=== PATIENT | male | born 1965 | race Caucasian/White ===

== ENCOUNTER → 2016-10-18 | Outpatient (CLI) | payer MEDICAID, OTHER ==
[2016-10-18 14:50] LABS: ALBUMIN/GLOBULIN RATIO 1.21 (1.00-1.93); ALKALINE PHOSPHATASE 86 U/L (45-117); ALT/SGPT 38 U/L (12-78); ANION GAP 10 MEQ/L (8-16); AST/SGOT 28 U/L (15-37); BILIRUBIN,TOTAL 0.4 MG/DL (0.2-1.0); BLOOD UREA NITROGEN 12 MG/DL (7-18); CALCIUM LEVEL 8.7 MG/DL (8.5-10.1); CARBON DIOXIDE LEVEL 26 MEQ/L (21-32); CHLORIDE LEVEL 97 MEQ/L (98-107); CHOLESTEROL LEVEL 125 MG/DL (<200); CREATININE FOR GFR 1.14 MG/DL (0.70-1.30); GLOMERULAR FILTRATION RATE > 60.0 (>56); GLUCOSE, FASTING 101 MG/DL (70-105); POTASSIUM SERUM 3.7 MEQ/L (3.5-5.1); SODIUM LEVEL 133 MEQ/L (136-145); TOTAL PROTEIN 7.3 GM/DL (6.4-8.2); TRIGLYCERIDES LEVEL 160 MG/DL (<150)
== END ==
LOC: M LAB 13:29
PROVIDERS: ATTEND Family Medicine Addiction Medicine
DX: E11.9 Type 2 diabetes mellitus without complications (principal)

== ENCOUNTER → 2017-04-10 | Outpatient (REF) | payer OTHER, MEDICAID ==
[2017-04-10 14:12] LABS: ALBUMIN 3.9 GM/DL (3.2-5.2); ALBUMIN/GLOBULIN RATIO 1.15 (1.00-1.93); ALKALINE PHOSPHATASE 74 U/L (45-117); ALT/SGPT 34 U/L (12-78); ANION GAP 6 MEQ/L (8-16); AST/SGOT 31 U/L (7-37); BILIRUBIN,TOTAL 0.4 MG/DL (0.2-1.0); BLOOD UREA NITROGEN 8 MG/DL (7-18); CALCIUM LEVEL 8.8 MG/DL (8.5-10.1); CARBON DIOXIDE LEVEL 29 MEQ/L (21-32); CHLORIDE LEVEL 103 MEQ/L (98-107); CHOLESTEROL LEVEL 145 MG/DL (<200); CHOLESTEROL RISK RATIO 3.625 (<5); CREATININE FOR GFR 0.95 MG/DL (0.70-1.30); GLOMERULAR FILTRATION RATE > 60.0 (>56); GLUCOSE, FASTING 110 MG/DL (70-100); HDL CHOLESTEROL 40 MG/DL (>40); NON-HDL-C 105 MG/DL; POTASSIUM SERUM 3.4 MEQ/L (3.5-5.1); SODIUM LEVEL 138 MEQ/L (136-145); TOTAL PROTEIN 7.3 GM/DL (6.4-8.2); TRIGLYCERIDES LEVEL 130 MG/DL (<150)
[2017-04-10 14:44] LABS: ESTIMATED AVERAGE GLUCOSE 140 MG/DL (60-110); HEMOGLOBIN A1c 6.5 %
[2017-04-11 09:30] LABS: HIV 1&2 SCREEN CENTAUR NEGATIVE (NEGATIVE)
== END ==
LOC: M LAB REF 12:27
DX: E11.9 Type 2 diabetes mellitus without complications (principal); Z13.9 Encounter for screening, unspecified

== ENCOUNTER → 2017-04-10 | Outpatient (REF) | payer OTHER, MEDICAID ==
[2017-04-10 14:06] LABS: CREATININE, URINE 34.6 MG/DL; MALB URINE SIEMENS 7.7 MG/L; MAU/CREAT RATIO 22.2 MCG/MG (0.0-30.0)
== END ==
LOC: M LAB REF 12:28
DX: E11.9 Type 2 diabetes mellitus without complications (principal)

== ENCOUNTER → 2017-04-14 | Outpatient (REF) | payer OTHER, MEDICAID | LOC: M LAB REF 14:36 | DX: R19.5 Other fecal abnormalities (principal) ==

== ENCOUNTER → 2017-05-13 | Outpatient (REF) | payer OTHER, MEDICAID ==
[2017-05-13 19:38] LABS: ALBUMIN 3.8 GM/DL (3.2-5.2); ALBUMIN/GLOBULIN RATIO 1.19 (1.00-1.93); ALKALINE PHOSPHATASE 68 U/L (45-117); ALT/SGPT 28 U/L (12-78); ANION GAP 6 MEQ/L (8-16); AST/SGOT 27 U/L (7-37); BILIRUBIN,TOTAL 0.3 MG/DL (0.2-1.0); BLOOD UREA NITROGEN 11 MG/DL (7-18); CALCIUM LEVEL 8.3 MG/DL (8.5-10.1); CARBON DIOXIDE LEVEL 26 MEQ/L (21-32); CHLORIDE LEVEL 106 MEQ/L (98-107); CHOLESTEROL LEVEL 122 MG/DL (<200); CHOLESTEROL RISK RATIO 3.696 (<5); CREATININE FOR GFR 0.92 MG/DL (0.70-1.30); GLOMERULAR FILTRATION RATE > 60.0 (>56); GLUCOSE, FASTING 111 MG/DL (70-100); HDL CHOLESTEROL 33 MG/DL (>40); LDL CHOLESTEROL 66.4 MG/DL (<100); NON-HDL-C 89 MG/DL; POTASSIUM SERUM 3.7 MEQ/L (3.5-5.1); SODIUM LEVEL 138 MEQ/L (136-145); THYROID STIMULATING HORMONE 0.579 uIU/ML (0.358-3.740); TRIGLYCERIDES LEVEL 113 MG/DL (<150)
[2017-05-13 21:18] LABS: ESTIMATED AVERAGE GLUCOSE 148 MG/DL (60-110); HEMOGLOBIN A1c 6.8 %
== END ==
LOC: M LAB REF 17:43
DX: E11.9 Type 2 diabetes mellitus without complications (principal)

== ENCOUNTER → 2017-07-11 | Outpatient (REF) | payer OTHER, MEDICAID ==
[2017-07-11 15:09] LABS: ALBUMIN 3.3 GM/DL (3.2-5.2); ALKALINE PHOSPHATASE 59 U/L (45-117); ALT/SGPT 32 U/L (12-78); ANION GAP 8 MEQ/L (8-16); AST/SGOT 40 U/L (7-37); BILIRUBIN,TOTAL 0.3 MG/DL (0.2-1.0); BLOOD UREA NITROGEN 13 MG/DL (7-18); CALCIUM LEVEL 7.7 MG/DL (8.5-10.1); CARBON DIOXIDE LEVEL 26 MEQ/L (21-32); CHLORIDE LEVEL 106 MEQ/L (98-107); CHOLESTEROL LEVEL 102 MG/DL (<200); CREATININE FOR GFR 1.02 MG/DL (0.70-1.30); GLOMERULAR FILTRATION RATE > 60.0 (>56); GLUCOSE, FASTING 107 MG/DL (70-100); HDL CHOLESTEROL 34 MG/DL (>40); LDL CHOLESTEROL 53.4 MG/DL (<100); NON-HDL-C 68 MG/DL; POTASSIUM SERUM 3.7 MEQ/L (3.5-5.1); SODIUM LEVEL 140 MEQ/L (136-145); THYROID STIMULATING HORMONE 0.957 uIU/ML (0.358-3.740); TOTAL PROTEIN 6.3 GM/DL (6.4-8.2); TRIGLYCERIDES LEVEL 73 MG/DL (<150)
[2017-07-11 15:50] LABS: ESTIMATED AVERAGE GLUCOSE 154 MG/DL (60-110)
== END ==
LOC: M LAB REF 14:21
DX: E11.9 Type 2 diabetes mellitus without complications (principal)

== ENCOUNTER 2017-09-04 17:22 | Emergency (ER) | payer OTHER, MEDICAID | END 2017-09-04 18:26 | disposition home or self-care (01) | LOC: M ED 17:22 | DX: G57.12 Meralgia paresthetica, left lower limb (principal); Z79.899 Other long term (current) drug therapy; F17.210 Nicotine dependence, cigarettes, uncomplicated | CPT/HCPCS: 99282 ==

== ENCOUNTER → 2017-12-26 | Outpatient (CLI) | payer OTHER ==
[2017-12-26 13:33] LABS: ALBUMIN 3.8 GM/DL (3.2-5.2); ALBUMIN/GLOBULIN RATIO 1.19 (1.00-1.93); ALKALINE PHOSPHATASE 79 U/L (45-117); ALT/SGPT 33 U/L (12-78); ANION GAP 9 MEQ/L (8-16); AST/SGOT 27 U/L (7-37); BILIRUBIN,TOTAL 0.5 MG/DL (0.2-1.0); BLOOD UREA NITROGEN 11 MG/DL (7-18); CALCIUM LEVEL 8.8 MG/DL (8.5-10.1); CARBON DIOXIDE LEVEL 29 MEQ/L (21-32); CHLORIDE LEVEL 100 MEQ/L (98-107); GLOMERULAR FILTRATION RATE > 60.0 (>56); GLUCOSE, FASTING 115 MG/DL (70-100); POTASSIUM SERUM 3.5 MEQ/L (3.5-5.1); SODIUM LEVEL 138 MEQ/L (136-145)
[2017-12-26 13:41] LABS: PTH INTACT 73.1 PG/ML (18.5-88.0); TOTAL 25(OH) VITAMIN D 35.9 NG/ML (30.0-100.0)
== END ==
LOC: M LAB 11:38
DX: E83.51 Hypocalcemia (principal)
CPT/HCPCS: 80053

== ENCOUNTER 2018-05-25 09:33 | Inpatient (IN) | payer MEDICAID, OTHER ==
[~2018-05-25] VITALS: Ht 185.4 cm; Wt 129.6 kg
[~2018-05-25 09:33] MED LIST: INVE1.75; LEXA1TAB PO; LISI-538 PO; METF10004 PO; NAPR-837 PO; PROP20TA72 PO; SIMV20TA2 PO
[2018-05-25] MEDS ORDERED: METOPROLOL TART 50 MG TAB PO ONE (11:00)
[2018-05-25] MEDS ORDERED: CHLORTHALIDONE 25 MG TAB PO ONE (11:00)
[2018-05-25] MEDS ORDERED: HALOPERIDOL 5 MG/ML VIAL (J1630) IM ONE (12:45)
[2018-05-25] MEDS ORDERED: LORazepam 2 MG/ML VIAL (J2060) IM ONE (12:45)
[2018-05-25] MEDS ORDERED: diphenhydrAMINE INJ 50MG/ML VIAL (J1200) IM ONE (12:45)
[2018-05-25 13:20] LABS: HEMATOCRIT 48.1 % (42.0-52.0); HEMOGLOBIN 15.9 g/dl (13.5-17.5); MEAN CORPUSCULAR HEMOGLOBIN 29.2 pg (27.0-33.0); MEAN CORPUSCULAR HGB CONC 33.1 g/dl (32.0-36.5); MEAN CORPUSCULAR VOLUME 88.3 fl (80.0-96.0); PLATELET COUNT, AUTOMATED 243 10^3/uL (150-450); RED BLOOD COUNT 5.45 10^6/uL (4.30-6.10); WHITE BLOOD COUNT 13.7 10^3/uL (4.0-10.0)
[2018-05-25 14:33] LABS: ALBUMIN 4.1 GM/DL (3.2-5.2); ALT/SGPT 33 U/L (12-78); BILIRUBIN,DIRECT 0.2 MG/DL (0.0-0.2); BILIRUBIN,TOTAL 0.4 MG/DL (0.2-1.0); BLOOD UREA NITROGEN 9 MG/DL (7-18); CALCIUM LEVEL 8.9 MG/DL (8.5-10.1); CARBON DIOXIDE LEVEL 24 MEQ/L (21-32); CHLORIDE LEVEL 104 MEQ/L (98-107); CREATININE FOR GFR 1.11 MG/DL (0.70-1.30); ETHYL ALCOHOL (ETHANOL) < 0.003 % (0.000-0.010); GLOMERULAR FILTRATION RATE > 60.0 (>56); GLUCOSE, FASTING 151 MG/DL (70-100); POTASSIUM SERUM 3.7 MEQ/L (3.5-5.1); SALICYLATE LEVEL 4.6 MG/DL (5.0-30.0); SODIUM LEVEL 141 MEQ/L (136-145); TOTAL PROTEIN 7.7 GM/DL (6.4-8.2)
[2018-05-25 14:34] LABS: ACETAMINOPHEN LEVEL < 2.0 UG/ML (10.0-30.0)
[2018-05-25 15:09] LABS: AMPHETAMINES LEVEL URINE NEGATIVE (NEGATIVE); BARBITURATES URINE NEGATIVE (NEGATIVE); BENZODIAZEPINES URINE NEGATIVE (NEGATIVE); CANNABINOIDS URINE NEGATIVE (NEGATIVE); COCAINE METABOLITE URINE NEGATIVE (NEGATIVE); METHADONE URINE NEGATIVE (NEGATIVE); OPIATES URINE NEGATIVE (NEGATIVE); PHENCYCLIDINE URINE NEGATIVE (NEGATIVE)
[2018-05-25] MEDS ORDERED: traZODone 50 MG TAB PO PRN (16:30)
[2018-05-25] MEDS ORDERED: MOM 30ML SUSPENSION UDC PO PRN (16:30)
[2018-05-25] MEDS ORDERED: OLANZapine ORAL DISINTEGRATING TAB 5MG PO PRN (16:30)
[2018-05-25] MEDS ORDERED: MAALOX 30 ML SUSP *UDC PO PRN (16:30)
[2018-05-25] MEDS ORDERED: ACETAMINOPHEN TAB 650MG DOSE (2X325MG) PO PRN (16:30)
[2018-05-25 18:30] VITALS: BP 180/110
[2018-05-25] MEDS ORDERED: cloNIDine 0.1 MG TAB PO PRN (18:45)
[2018-05-25] MEDS: LISINOPRIL 10 MG TAB PO SCH (18:52)
[2018-05-25] MEDS: amLODIPine 10 MG TAB PO SCH (18:55)
[2018-05-25 20:41] LABS: CHOLESTEROL LEVEL 214 MG/DL (<200); CHOLESTEROL RISK RATIO 5.944 (<5); HDL CHOLESTEROL 36 MG/DL (>40); LDL CHOLESTEROL 136 MG/DL (<100); NON-HDL-C 178 MG/DL; TRIGLYCERIDES LEVEL 210 MG/DL (<150)
[2018-05-25 20:48] LABS: HEMOGLOBIN A1c 7.3 %
--- NOTE | 2018-05-25 20:51 | CR ---
DATE OF CONSULTATION: 05/25/2018 REFERRING PHYSICIAN: Psychiatrist REASON FOR CONSULTATION: Medical evaluation and management. HISTORY OF PRESENT ILLNESS: The patient is a 52-year-old male living in [facility] ([facility]) who started having increasing paranoia and continued to refuse medication and patient became confrontational with staff and pick-up order was warranted and patient was brought to [facility] for further evaluation and hospitalist team was called on admission. Patient was diagnosed with schizophrenia, however he has not been taking his medication for several months. In the leisure time, he is using marijuana and cocaine for leisure. Patient has not been seen by a medical provider for some time. He is not sure what medical conditions he has had in the past. He vaguely recalled that he stopped taking metformin but he does not feel the need for the metformin, he does not know why he is taking metformin. Denied any medical issues. PAST MEDICAL HISTORY: 1. Schizophrenia. 2. Hypertension. 3. Questionable dyslipidemia. 4. Questionable diabetes. PAST SURGICAL HISTORY: None. SOCIAL HISTORY: Patient smoked one pack daily for 30 years. Patient drinks 1-2 drinks monthly. Patient continues to use marijuana and cocaine. Last use was a few days ago. REVIEW OF SYSTEMS: GENERAL: Denied fevers or chills. HEENT: Denied vision changes or auditory changes. CARDIOVASCULAR: Denied any chest pain or palpitations. RESPIRATORY: Denied cough, sputum production, or wheezes. GASTROINTESTINAL (GI): No nausea, no vomiting, no diarrhea. GENITOURINARY (): Denied any frequency, urgency, or dysuria. MUSCULOSKELETAL: Denied any muscle pain or joint pain. NEUROLOGICAL: Denied any numbness or tingling. OBJECTIVE: VITAL SIGNS: Temperature is 99.6, pulse 104, respiratory rate 16, blood pressure 180/110, oxygen 94% in room air. GENERAL: Obese, patient is alert and awake, no distress. HEENT: Normocephalic, atraumatic. Extraocular motors grossly intact. CARDIOVASCULAR: [place], positive S1, S2. LUNGS: Clear to auscultation bilaterally. ABDOMEN: Soft, nontender, bowel sounds present. EXTREMITIES: No significant edema noted. LABORATORY DATA: WBC 13.3, hemoglobin 15.9, hematocrit 48.1, platelet count 243, sodium 141, potassium 3.7, chloride 104, carbon dioxide 24, BUN 9, creatinine 1.11, GFR greater than 60, fasting glucose 151, calcium 8.9, total bilirubin 0.4, direct bilirubin 0.2, AST 29, ALT 33, alkaline phosphatase 110, total protein 7.7, albumin 4.1, TSH 1.19. Urine toxicology is negative. Alcohol level negative. ASSESSMENT AND PLAN: 1. Hypertension. Patient has not been taking medications for some time. He could not recall whether he was on any type of blood pressure medication in the past. Most recent blood pressure measurement was 180/110. Start trial of long-acting Cardizem, will adjust as needed. Cardizem has holding parameters. 2. Questionable history of diabetes. Patient thinks he was given metformin in the past but he could not be sure. Laboratory tests show patient has a glucose level of 150. Will followup with A1c. At the moment, will place the patient on consistent carbohydrate diet. 3. Possible dyslipidemia. Followup with lipid profile. 4. Psychiatric condition of schizophrenia. Defer psychiatric management to psychiatry. 5. Deep venous thrombosis (DVT) prophylaxis. Recommend increasing ambulation.
[2018-05-25] MEDS: PALIPERIDONE 3 MG ER TAB (INVEGA) PO SCH (21:00)
[2018-05-26 06:51] VITALS: BP 176/84
[2018-05-26] MEDS: PALIPERIDONE 3 MG ER TAB (INVEGA) PO SCH ×2 (09:00→21:00)
[2018-05-26] MEDS: LISINOPRIL 10 MG TAB PO SCH (09:41)
[2018-05-26] MEDS: amLODIPine 10 MG TAB PO SCH (09:42)
[2018-05-26 12:08] VITALS: BP 132/80
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
[2018-05-26] MEDS: metFORMIN (GLUCOPHAGE) 500 MG TAB PO SCH (17:22)
--- NOTE | 2018-05-26 17:45 | IPNPDOC ---
Date Seen The patient was seen on 05/26/18. Progress Note SUBJECTIVE: Patient reports no new complaints he tells me that heblood pressure has been high and that he has been borderline diabetic for a long time. He tells me he's been drinking a lot of coffee having a lot of energy Curly's" is not getting a lot of action" which is starting to get his blood pressure up. He denies headache or visual changes OBJECTIVE PHYSICAL EXAMINATION: VITAL SIGNS: Please see below. GENERAL: Obese man sitting on examining table he does not appear to be in any acute distress HEENT: Cranial nerves II through XII grossly intact she is wearing black thick rimmed glasses she has a large bernstein CARDIOVASCULAR: S1-S2 regular. RESPIRATORY: Clear to auscultation bilaterally. ABDOMINAL: Obese bowel sounds are present abdomen soft EXTREMITIES: No clubbing cyanosis or edema LABORATORY DATA, IMAGING STUDIES, MICROBIOLOGY: Please see below. ASSESSMENT AND PLAN: This is a 52-year-old man with hypertension and new diagnosis diabetes. PROBLEMS: 1. Hypertension: He is intermittently accepting medications are advised to take them the time being we'll continue with amlodipine 10 mg and lisinopril 10 mg with clonidine strictly as a when necessary. We'll monitor his blood pressure and titrated up lisinopril if needed. I'll change his diet to 2 g sodium consistent carb diet. He is asymptomatic with his hypertension 2. Diabetes: Elevated hemoglobin A1c he is started on metformin by mouth twice a day he should have outpatient follow-up regarding this suspected benefit from a glucometer and test strips in order to monitor his blood glucose in the outpatient setting upon discharge as well as close follow-up with his primary care provider regarding this he would likely benefit from annual podiatry and ophthalmology exams. 3. Leukocytosis likely reactive 4. Dyslipidemia: Continue with atorvastatin Thank you for involving us in this interesting patient's care should his blood pressure remain elevated her blood glucose become uncontrolled please do call us and let us know specifically otherwise at this time we will sign off thank you VS, I&O, 24H, Fishbone Vital Signs/I&O Vital Signs Date Time Temp Pulse Resp B/P (MAP) Pulse Ox O2 Delivery O2 Flow Rate FiO2 05/26/18 17:27 160/84 05/26/18 12:08 97.4 90 18 05/26/18 09:52 Room Air 05/25/18 17:22 94 Laboratory Data 24H LABS Laboratory Tests 2 05/26/18 17:20: Bedside Glucose (Misc Panel) 242H CLEMENCIA JONES MD May 26, 2018 17:45
[2018-05-26 18:34] VITALS: BP 158/81
[2018-05-27 07:00] VITALS: BP 132/76
[2018-05-27 07:04] LABS: HEMATOCRIT 44.3 % (42.0-52.0); HEMOGLOBIN 15.3 g/dl (13.5-17.5); MEAN CORPUSCULAR HEMOGLOBIN 29.9 pg (27.0-33.0); MEAN CORPUSCULAR HGB CONC 34.5 g/dl (32.0-36.5); MEAN CORPUSCULAR VOLUME 86.5 fl (80.0-96.0); PLATELET COUNT, AUTOMATED 240 10^3/uL (150-450); RED BLOOD COUNT 5.12 10^6/uL (4.30-6.10); WHITE BLOOD COUNT 12.2 10^3/uL (4.0-10.0)
[2018-05-27] MEDS: metFORMIN (GLUCOPHAGE) 500 MG TAB PO SCH ×2 (07:51→17:01)
[2018-05-27] MEDS: ATORVASTATIN 10 MG TAB PO SCH (08:20)
[2018-05-27] MEDS: PALIPERIDONE 3 MG ER TAB (INVEGA) PO SCH ×2 (08:20→20:21)
[2018-05-27] MEDS: LISINOPRIL 10 MG TAB PO SCH (08:21)
[2018-05-27] MEDS: amLODIPine 10 MG TAB PO SCH (08:21)
--- NOTE | 2018-05-27 13:51 | IPNPDOC ---
Date Seen The patient was seen on 05/27/18. Progress Note SUBJECTIVE: patient reports no complaints, he has lots of questions regarding his new medications but is feeling well. OBJECTIVE PHYSICAL EXAMINATION: VITAL SIGNS: Please see below. GENERAL: Obese man sitting on examining table he does not appear to be in any acute distress HEENT: Cranial nerves II through XII grossly intact she is wearing black thick rimmed glasses she has a large bernstein CARDIOVASCULAR: S1-S2 regular. No additional sounds appreciated RESPIRATORY: Clear to auscultation bilaterally. ABDOMINAL: Obese bowel sounds are present abdomen soft EXTREMITIES: No clubbing cyanosis or edema LABORATORY DATA, IMAGING STUDIES, MICROBIOLOGY: Please see below. ASSESSMENT AND PLAN: This is a 52-year-old man with hypertension and new diagnosis diabetes. PROBLEMS: 1. Hypertension: He is more receptive to medications at this time, BP control still suboptimal will increase lisinopril and con't to monitor. He is asymptomatic. If discharged remain on these meds and close outpatient f/u 2. Diabetes: Elevated hemoglobin A1c he is started on metformin by mouth twice a day he should have outpatient follow-up regarding this suspected benefit from a glucometer and test strips in order to monitor his blood glucose in the outpatient setting upon discharge as well as close follow-up with his primary care provider regarding this he would likely benefit from annual podiatry and ophthalmology exams. 3. Dyslipidemia: Continue with atorvastatin VS, I&O, 24H, Fishbone Vital Signs/I&O Vital Signs Date Time Temp Pulse Resp B/P (MAP) Pulse Ox O2 Delivery O2 Flow Rate FiO2 05/27/18 08:21 96 138/90 05/27/18 07:00 98.6 16 05/26/18 09:52 Room Air 05/25/18 17:22 94 Laboratory Data 24H LABS Laboratory Tests 2 05/26/18 17:20: Bedside Glucose (Misc Panel) 242H 05/27/18 06:39: Nucleated Red Blood Cells % (auto) 0.0 05/27/18 06:40: Bedside Glucose (Misc Panel) 201H CBC/BMP Laboratory Tests 05/27/18 06:39 Red Blood Count 5.12, Mean Corpuscular Volume 86.5, Mean Corpuscular Hemoglobin 29.9, Mean Corpuscular Hemoglobin Concent 34.5, Red Cell Distribution Width 13.1 CLEMENCIA JONES MD May 27, 2018 13:51
[2018-05-27 18:00] VITALS: BP 134/82
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
[2018-05-28 07:10] VITALS: BP 130/65
[2018-05-28] MEDS: amLODIPine 10 MG TAB PO SCH (08:17)
[2018-05-28] MEDS: LISINOPRIL 20 MG TAB PO SCH (08:17)
[2018-05-28] MEDS: ATORVASTATIN 10 MG TAB PO SCH (08:17)
[2018-05-28] MEDS: metFORMIN (GLUCOPHAGE) 500 MG TAB PO SCH ×2 (08:17→17:58)
[2018-05-28] MEDS: PALIPERIDONE 3 MG ER TAB (INVEGA) PO SCH ×2 (08:17→20:53)
--- NOTE | 2018-05-28 15:46 | ECGEPIP ---
Stationary ECG Study [facility] Test Date: 2018-05-26 Pat Name: CHAPO CARRANZA Department: Room: [place] [address] Gender: M Mate Ship: [place] : 1965 Requested By: DEDRA BENITEZ PGY-1 Order Number: [id number] Reading MD: Teodoro Aviles Measurements Intervals [place] Rate: 89 P: 57 [place]: 185 QRS: 42 QRSD: 117 T: 28 QT: 380 QTc: 462 Interpretive Statements SINUS RHYTHM MODERATE INTRAVENTRICULAR CONDUCTION DELAY No prior ECG available for comparison at the time of interpretation. Electronically Signed On 05-28-2018 15:46:05 EDT by Teodoro Aviles
[2018-05-28 18:10] VITALS: BP 126/77
--- NOTE | 2018-05-28 18:53 | MHIPNPDOC ---
[facility] Progress Note Progress Note DATE OF SERVICE: 05/28/18 HISTORY: Patient is a 52 -year-old , male, who has a history of schizophrenia. States he was given groceries and wanted to get them himself. 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 States there were staff changes at his TLS. Says he has a court appearance for June 09 due to pushing television maintenance worker last week, says "I gently escorted him away and he tripped". He discusses how he sees things during REM sleep, and asks what my favorite part of REM was, stating "engineering is mine". He continues to refuse medications a this time and does not appear internally preoccupied, but he is mildly disorganized with slurred circumstantial speech. He is agreeable to continued stay on the unit. Per [facility] evaluation he was having AH, increased paranoia and guarded behavior per staff at [facility], has not been taking medications for months which he confirms and has been locking himself in his room preventing CM to enters and speak with him with increasingly agitated behavior. He threw a maintenance working over the railing rending him unconscious. Per patient he states the television maintenance worker was "stealing my stuff". Currently he he denies SI/HI/AVH/kermit. VITAL SIGNS: See below. NEW TEST RESULTS: see below. CURRENT MEDICATIONS: See below. MENTAL STATUS EXAMINATION: General Appearance: disheveled, hospital scubs/clothing, obese, bald with long garcia hair, fair eye-contact Build: overweight Demeanor: calmer Eye Contact: average Activity: average Behavior: cooperative, relaxed, smiling at times Speech: less slurred, spontaneous, normal rate, loud Mood: hypomanic Affect: less labile, no longer mildly disorganized Thought Process: more logical/linear, less circumstantial Thought Content (Delusions): denies SI, HI, AVH, other (no longer reports illusions) Thought Content (Other): coherent at times, talking about how much he misses walking 15 miles(???) that he used to walk. Thought Content (Aggressive): other. Denies HI. Says he was angry because some people were trying to remove some material for construction from his sidewalk Perception (Hallucinations): other Perception (Other): none reported Cognition (Impairment of): he is still a little derailed Cognition(Intelligence Est.): average Oriented: Awake, Alert Insight: improving Judgment: improving Psychosis: Denies DIAGNOSES: 1. Unspecified schizophrenia spectrum and other psychotic disorder 2. tobacco use disorder 3. Cluster B and C traits ASSESSMENT: Patient is tangential, circumstantial, his speech is nonsensical for most of the time but he says he feels better, he doesn't dislike [facility], he knows he will go back over there, he doesn't mind going back there. He says he lives at [facility] because he failed to integrate into the society. He is not presenting with medication side effects, no EPS noted/reported. He denies SI/HI/AV hallucinations but he continues to be a little derailed. he is not aggressive, he is not violent. MANAGEMENT PLAN: see above TIME SPENT: 15 minutes. Vital Signs Vital Signs Date Time Temp Pulse Resp B/P (MAP) Pulse Ox O2 Delivery O2 Flow Rate FiO2 05/28/18 18:10 97.1 96 16 126/77 (93) 05/27/18 18:00 94 05/26/18 09:52 Room Air Laboratory Data 24H Labs Laboratory Tests 2 05/28/18 06:08: Bedside Glucose (Misc Panel) 127H 05/28/18 17:29: Bedside Glucose (Misc Panel) 170H Current Medications Current Medications Acetaminophen (Tylenol Tab) 650 mg Q6HP PRN PO HEADACHE or DISCOMFORT Last administered on 05/28/18at 09:34; Start 05/25/18 at 16:30 Al Hydrox/Mg Hydrox/Simethicone (Mylanta) 30 ml Q4HP PRN PO HEARTBURN/INDIGESTION; Start 05/25/18 at 16:30 Amlodipine Besylate (Norvasc) 10 mg DAILY PO Last administered on 05/28/18at 08:17; Start 05/25/18 at 09:00 Atorvastatin Calcium (Lipitor) 10 mg DAILY PO Last administered on 05/28/18at 08:17; Start 05/27/18 at 09:00 Clonidine HCl (Catapres) 0.1 mg Q8HP PRN PO HYPERTENSION Last administered on 05/26/18at 17:27; Start 05/25/18 at 18:45; Stop 05/27/18 at 13:48; Status DC Diltiazem HCl (Cardizem Cd) 120 mg BID PO Last administered on 05/25/18at 22:09; Start 05/25/18 at 21:00; Stop 05/26/18 at 17:17; Status DC Lisinopril (Prinivil) 10 mg DAILY PO Last administered on 05/27/18at 08:21; Start 05/25/18 at 09:00; Stop 05/27/18 at 13:48; Status DC Lisinopril (Prinivil) 20 mg DAILY PO Last administered on 05/28/18at 08:17; Start 05/28/18 at 09:00 Magnesium Hydroxide (Milk Of Magnesia) 30 ml DAILYPRN PRN PO CONSTIPATION; Start 05/25/18 at 16:30 Metformin HCl (Glucophage) 500 mg BID@08,18 PO Last administered on 05/28/18at 17:58; Start 05/26/18 at 18:00 Olanzapine (ZyPREXA ZYDIS) 5 mg Q6HP PRN PO AGITATION; Start 05/25/18 at 16:30 Paliperidone (Invega) 3 mg BID PO Last administered on 05/28/18at 08:17; Start 05/25/18 at 21:00 Trazodone HCl (Desyrel) 50 mg QHSP PRN PO INSOMNIA; Start 05/25/18 at 16:30 Allergies Coded Allergies: No Known Allergies (Verified , 06/02/04) PERFECTO MEJIA MD May 28, 2018 18:53
[2018-05-29 07:00] VITALS: BP 150/97
[2018-05-29] MEDS: PALIPERIDONE 3 MG ER TAB (INVEGA) PO SCH ×2 (08:31→20:47)
[2018-05-29] MEDS: metFORMIN (GLUCOPHAGE) 500 MG TAB PO SCH ×2 (08:31→17:22)
[2018-05-29] MEDS: ATORVASTATIN 10 MG TAB PO SCH (08:31)
[2018-05-29] MEDS: amLODIPine 10 MG TAB PO SCH (08:31)
[2018-05-29] MEDS: LISINOPRIL 20 MG TAB PO SCH (08:32)
--- NOTE | 2018-05-29 13:41 | MHIPNPDOC ---
[facility] Progress Note Progress Note DATE OF SERVICE: 05/29/18 HISTORY: Patient is a 52 -year-old , male, who has a history of schizophrenia. States he was given groceries and wanted to get them himself. 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 States there were staff changes at his TLS. Says he has a court appearance for June 09 due to pushing hvac maintenance technician last week, says "I gently escorted him away and he tripped". He discusses how he sees things during REM sleep, and asks what my favorite part of REM was, stating "engineering is mine". He continues to refuse medications a this time and does not appear internally preoccupied, but he is mildly disorganized with slurred circumstantial speech. He is agreeable to continued stay on the unit. Per [facility] evaluation he was having AH, increased paranoia and guarded behavior per staff at TLS, has not been taking medications for months which he confirms and has been locking himself in his room preventing CM to enters and speak with him with increasingly agitated behavior. He threw a maintenance working over the railing rending him unconscious. Per patient he states the hvac maintenance technician was "stealing my stuff". Currently he he denies SI/HI/AVH/kermit. VITAL SIGNS: See below. NEW TEST RESULTS: see below. CURRENT MEDICATIONS: See below. MENTAL STATUS EXAMINATION: General Appearance: disheveled, hospital scubs/clothing, obese, bald with long garcia hair, fair eye-contact Build: overweight Demeanor: calmer Eye Contact: average Activity: average Behavior: cooperative, relaxed, smiling at times Speech: less slurred, spontaneous, normal rate, loud Mood: hypomanic Affect: a little labile Thought Process: somewhat circumstantial but not tangential. Not logical at times. Thought Content (Delusions): denies SI, HI, AVH, Thought Content (Other): goal orientated, he still has some bizarre delusions (please see assessment) Thought Content (Aggressive): none reported Perception (Hallucinations): none reported Perception (Other): none reported Cognition (Impairment of): he is still a little derailed Cognition(Intelligence Est.): average Oriented: Awake, Alert Insight: improving Judgment: improving Psychosis: Denies DIAGNOSES: 1. Unspecified schizophrenia spectrum and other psychotic disorder 2. tobacco use disorder 3. Cluster B and C traits ASSESSMENT: Patient still has some bizarre thoughts like talking about the level of difficulty that I might experience here or the Nurse, because "it's metla physicis, we all hav different metals and how w process things might be due to the interaction of those metals". Other than that, he is much better than yesterday. Spoke with him about TLS and what they are planning to do which is getting him to go to a Unit/house/apartment where he can live by himself and he is agreeable to that. The patient is not experiencing negative side effects, he is tolerating medications well. MANAGEMENT PLAN: see above TIME SPENT: 15 minutes. Vital Signs Vital Signs Date Time Temp Pulse Resp B/P (MAP) Pulse Ox O2 Delivery O2 Flow Rate FiO2 05/29/18 08:32 145/84 05/29/18 08:31 110 05/29/18 07:00 96.8 18 05/27/18 18:00 94 05/26/18 09:52 Room Air Laboratory Data 24H Labs Laboratory Tests 2 05/28/18 17:29: Bedside Glucose (Misc Panel) 170H 05/29/18 05:35: Bedside Glucose (Misc Panel) 124H Current Medications Current Medications Acetaminophen (Tylenol Tab) 650 mg Q6HP PRN PO HEADACHE or DISCOMFORT Last administered on 05/28/18at 09:34; Start 05/25/18 at 16:30 Al Hydrox/Mg Hydrox/Simethicone (Mylanta) 30 ml Q4HP PRN PO HEARTBURN/INDIGESTION; Start 05/25/18 at 16:30 Amlodipine Besylate (Norvasc) 10 mg DAILY PO Last administered on 05/29/18 08:31; Start 05/25/18 at 09:00 Atorvastatin Calcium (Lipitor) 10 mg DAILY PO Last administered on 05/29/18 08:31; Start 05/27/18 at 09:00 Clonidine HCl (Catapres) 0.1 mg Q8HP PRN PO HYPERTENSION Last administered on 05/26/18 17:27; Start 05/25/18 at 18:45; Stop 05/27/18 at 13:48; Status DC Diltiazem HCl (Cardizem Cd) 120 mg BID PO Last administered on 05/25/18at 22:09; Start 05/25/18 at 21:00; Stop 05/26/18 at 17:17; Status DC Lisinopril (Prinivil) 10 mg DAILY PO Last administered on 05/27/18at 08:21; Start 05/25/18 at 09:00; Stop 05/27/18 at 13:48; Status DC Lisinopril (Prinivil) 20 mg DAILY PO Last administered on 05/29/18at 08:32; Start 05/28/18 at 09:00 Magnesium Hydroxide (Milk Of Magnesia) 30 ml DAILYPRN PRN PO CONSTIPATION; Sta rt 05/25/18 at 16:30 Metformin HCl (Glucophage) 500 mg BID@08,18 PO Last administered on 05/29/18at 08:31; Start 05/26/18 at 18:00 Olanzapine (ZyPREXA ZYDIS) 5 mg Q6HP PRN PO AGITATION; Start 05/25/18 at 16:30 Paliperidone (Invega) 3 mg BID PO Last administered on 05/29/18at 08:31; Start 05/25/18 at 21:00 Trazodone HCl (Desyrel) 50 mg QHSP PRN PO INSOMNIA; Start 05/25/18 at 16:30 Allergies Coded Allergies: No Known Allergies (Verified , 06/02/04) PERFECTO MEJIA MD May 29, 2018 13:41
[2018-05-29 14:20] VITALS: BP 122/69
[2018-05-29 18:08] VITALS: BP 145/84
[2018-05-30 07:14] VITALS: BP 117/73
[2018-05-30] MEDS: metFORMIN (GLUCOPHAGE) 500 MG TAB PO SCH ×2 (07:24→17:07)
[2018-05-30] MEDS: PALIPERIDONE 3 MG ER TAB (INVEGA) PO SCH ×2 (08:37→20:52)
[2018-05-30] MEDS: ATORVASTATIN 10 MG TAB PO SCH (08:38)
[2018-05-30] MEDS: amLODIPine 10 MG TAB PO SCH (08:38)
[2018-05-30] MEDS: LISINOPRIL 20 MG TAB PO SCH (08:38)
[2018-05-30 18:00] VITALS: BP 120/70
[2018-05-31 06:36] VITALS: BP 156/70
[2018-05-31] MEDS: metFORMIN (GLUCOPHAGE) 500 MG TAB PO SCH ×2 (07:34→17:10)
[2018-05-31] MEDS: PALIPERIDONE 3 MG ER TAB (INVEGA) PO SCH ×2 (09:29→20:33)
[2018-05-31] MEDS: ATORVASTATIN 10 MG TAB PO SCH (09:29)
[2018-05-31] MEDS: LISINOPRIL 20 MG TAB PO SCH (09:29)
[2018-05-31] MEDS: amLODIPine 10 MG TAB PO SCH (09:29)
[2018-05-31 18:00] VITALS: BP 130/86
[2018-06-01 06:39] VITALS: BP 125/60
[2018-06-01] MEDS: metFORMIN (GLUCOPHAGE) 500 MG TAB PO SCH ×2 (07:50→17:53)
[2018-06-01] MEDS: LISINOPRIL 20 MG TAB PO SCH (08:57)
[2018-06-01] MEDS: PALIPERIDONE 3 MG ER TAB (INVEGA) PO SCH ×2 (08:57→21:39)
[2018-06-01] MEDS: ATORVASTATIN 10 MG TAB PO SCH (08:57)
[2018-06-01] MEDS: amLODIPine 10 MG TAB PO SCH (08:57)
--- NOTE | 2018-06-01 12:48 | MHIPNPDOC ---
[facility] Progress Note Progress Note DATE OF SERVICE: 06/01/18 HISTORY: Patient is a 52 -year-old , male, who has a history of schizophrenia. States he was given groceries and wanted to get them himself. 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 States there were staff changes at his TLS. Says he has a court appearance for June 09 due to pushing television maintenance worker last week, says "I gently escorted him away and he tripped". He discusses how he sees things during REM sleep, and asks what my favorite part of REM was, stating "engineering is mine". He continues to refuse medications a this time and does not appear internally preoccupied, but he is mildly disorganized with slurred circumstantial speech. He is agreeable to continued stay on the unit. Per [facility] evaluation he was having AH, increased paranoia and guarded behavior per staff at TLS, has not been taking medications for months which he confirms and has been locking himself in his room preventing CM to enters and speak with him with increasingly agitated behavior. He threw a maintenance working over the railing rending him unconscious. Per patient he states the television maintenance worker was "stealing my stuff". Currently he he denies SI/HI/AVH/kermit. VITAL SIGNS: See below. NEW TEST RESULTS: see below. CURRENT MEDICATIONS: See below. MENTAL STATUS EXAMINATION: General Appearance: disheveled, hospital scrubs/clothing, obese, bald with long garcia hair, fair eye-contact Build: overweight Demeanor: calm, cooperative Eye Contact: average Activity: average Behavior: cooperative, relaxed, smiling at times Speech: spontaneous, normal rate, loud Mood: euthymic Affect: congruent with mood Thought Process: Illogical, circumstantial, derailed most of the time. Thought Content (Delusions): denies SI, HI, AVH, Thought Content (Other): the patient has bizarre thoughts, like thinking that Invega Sustenna has too much "plasticity in it because it has too much silico in it" Thought Content (Aggressive): none reported Perception (Hallucinations): none reported Perception (Other): He doesn't seem to be responding to internal stimuli Cognition (Impairment of): he is still derailed, his attention and concentration are mildly impaired Cognition(Intelligence Est.): average Oriented: Awake, Alert Insight: improving Judgment: improving Psychosis: Denies DIAGNOSES: 1. Unspecified schizophrenia spectrum and other psychotic disorder 2. tobacco use disorder 3. Cluster B and C traits ASSESSMENT: Patient has accepted to have his [facility] today. Initially he was not very enthusiastic about this because he said he had it in the past and "had too much silicon in it and he was trying to avoid the plasticity of it". He is curious as of when is he going to be leaving and tw told him that TLS has to contact us but we are aiming his discharge for Friday, when hopefully, they will have a house or an apartment for him to live alone. MANAGEMENT PLAN: see above TIME SPENT: 15 minutes. Vital Signs Vital Signs Date Time Temp Pulse Resp B/P (MAP) Pulse Ox O2 Delivery O2 Flow Rate FiO2 06/01/18 08:57 110/66 06/01/18 08:57 121 06/01/18 06:39 97.8 16 05/27/18 18:00 94 05/26/18 09:52 Room Air Laboratory Data 24H Labs Laboratory Tests 2 05/31/18 17:09: Bedside Glucose (Misc Panel) 110H 06/01/18 06:17: Bedside Glucose (Misc Panel) 147H Current Medications Current Medications Acetaminophen (Tylenol Tab) 650 mg Q6HP PRN PO HEADACHE or DISCOMFORT Last administered on 05/28/18at 09:34; Start 05/25/18 at 16:30 Al Hydrox/Mg Hydrox/Simethicone (Mylanta) 30 ml Q4HP PRN PO HEARTBURN/INDIGESTION; Start 05/25/18 at 16:30 Amlodipine Besylate (Norvasc) 10 mg DAILY PO Last administered on 06/01/18 08:57; Start 05/25/18 at 09:00 Atorvastatin Calcium (Lipitor) 10 mg DAILY PO Last administered on 06/01/18 08:57; Start 05/27/18 at 09:00 Clonidine HCl (Catapres) 0.1 mg Q8HP PRN PO HYPERTENSION Last administered on 05/26/18 17:27; Start 05/25/18 at 18:45; Stop 05/27/18 at 13:48; Status DC Diltiazem HCl (Cardizem Cd) 120 mg BID PO Last administered on 05/25/18at 22:09; Start 05/25/18 at 21:00; Stop 05/26/18 at 17:17; Status DC Lisinopril (Prinivil) 10 mg DAILY PO Last administered on 05/27/18at 08:21; Start 05/25/18 at 09:00; Stop 05/27/18 at 13:48; Status DC Lisinopril (Prinivil) 20 mg DAILY PO Last administered on 06/01/18at 08:57; Start 05/28/18 at 09:00 Magnesium Hydroxide (Milk Of Magnesia) 30 ml DAILYPRN PRN PO CONSTIPATION; Start 05/25/18 at 16:30 Metformin HCl (Glucophage) 500 mg BID@,18 PO Last administered on 06/01/18at 07:50; Start 05/26/18 at 18:00 Olanzapine (ZyPREXA ZYDIS) 5 mg Q6HP PRN PO AGITATION; Start 05/25/18 at 16:30 Paliperidone (Invega) 3 mg BID PO Last administered on 06/01/18at 08:57; Start 05/25/18 at 21:00 Trazodone HCl (Desyrel) 50 mg QHSP PRN PO INSOMNIA; Start 05/25/18 at 16:30 Allergies Coded Allergies: No Known Allergies (Verified , 06/02/04) PERFECTO MEJIA MD Jun 01, 2018 12:47
[2018-06-01] MEDS ORDERED: PALIPERIDONE PALMITATE 234MG/1.5ML INJ (INVEGA)(J2426)(FREE PSY INPT ONLY) IM ONE (13:00)
[2018-06-01 18:11] VITALS: BP 148/84
[2018-06-02 06:31] VITALS: BP 127/78
[2018-06-02] MEDS: PALIPERIDONE 3 MG ER TAB (INVEGA) PO SCH (08:28)
[2018-06-02] MEDS: ATORVASTATIN 10 MG TAB PO SCH (08:28)
[2018-06-02] MEDS: LISINOPRIL 20 MG TAB PO SCH (08:29)
[2018-06-02] MEDS: metFORMIN (GLUCOPHAGE) 500 MG TAB PO SCH ×2 (08:29→17:35)
[2018-06-02] MEDS: amLODIPine 10 MG TAB PO SCH (08:29)
--- NOTE | 2018-06-02 14:01 | MHIPNPDOC ---
[facility] Progress Note Progress Note DATE OF SERVICE: 06/02/18 HISTORY: Patient is a 52 -year-old , male, who has a history of schizophrenia. States he was given groceries and wanted to get them himself. 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 States there were staff changes at his TLS. Says he has a court appearance for June 09 due to pushing painter maintenance last week, says "I gently escorted him away and he tripped". He discusses how he sees things during REM sleep, and asks what my favorite part of REM was, stating "engineering is mine". He continues to refuse medications a this time and does not appear internally preoccupied, but he is mildly disorganized with slurred circumstantial speech. He is agreeable to continued stay on the unit. Per [facility] evaluation he was having AH, increased paranoia and guarded behavior per staff at [facility], has not been taking medications for months which he confirms and has been locking himself in his room preventing CM to enters and speak with him with increasingly agitated behavior. He threw a maintenance working over the railing rending him unconscious. Per patient he states the painter maintenance was "stealing my stuff". Currently he he denies SI/HI/AVH/kermit. VITAL SIGNS: See below. NEW TEST RESULTS: see below. CURRENT MEDICATIONS: See below. MENTAL STATUS EXAMINATION: General Appearance: disheveled, hospital scrubs/clothing, obese, bald with long garcia hair, fair eye-contact Build: overweight Demeanor: calm, cooperative Eye Contact: average Activity: average Behavior: cooperative, relaxed, smiling at times Speech: spontaneous, normal rate, loud Mood: euthymic Affect: congruent with mood Thought Process: Disorganized, clang anociations Thought Content (Delusions): denies SI, HI, AVH, Thought Content (Other): patient has bizarre thoughts, wants to develop a "forge" out of his grill inside his home. Has delusions. Thought Content (Aggressive): none reported Perception (Hallucinations): none reported Perception (Other): He doesn't seem to be responding to internal stimuli Cognition (Impairment of): impaired attention and concentration Cognition(Intelligence Est.): average Oriented: Awake, Alert Insight: improving Judgment: improving Psychosis: Denies DIAGNOSES: 1. Unspecified schizophrenia spectrum and other psychotic disorder 2. tobacco use disorder 3. Cluster B and C traits ASSESSMENT: When discussing TLS appointment he thinks it went smoothly, per staff was paranoid and resistant towards TLS during meeting. Requires continued medication/treatment to stabilize his psychosis. Continues to have both bizarre and non-bizarre delusions and is disorganized with poor attention/concentration. Agrees to take his medications. Denies SI/HI. Denies AVH, kermit. Denies side effects from medications. Says sleep is poor, appetite is "good". Had Im 156 mg paliperidone yesterday, Qmonthly 234 mg IM paliperidone next due 07/01/18. Discontinued paliperidone 3 mg PO BID. Started patient on 200 mg seroquel QHS, 25 mg QAM, 25 mg Q4pm for psychosis. MANAGEMENT PLAN: see above TIME SPENT: 20 minutes. Vital Signs Vital Signs Date Time Temp Pulse Resp B/P (MAP) Pulse Ox O2 Delivery O2 Flow Rate FiO2 06/02/18 08:29 127/78 06/02/18 08:29 106 06/02/18 06:31 97.8 18 05/27/18 18:00 94 Laboratory Data 24H Labs Laboratory Tests 2 06/02/18 06:00: Bedside Glucose (Misc Panel) 129H Current Medications Current Medications Acetaminophen (Tylenol Tab) 650 mg Q6HP PRN PO HEADACHE or DISCOMFORT Last administered on 05/28/18at 09:34; Start 05/25/18 at 16:30 Al Hydrox/Mg Hydrox/Simethicone (Mylanta) 30 ml Q4HP PRN PO HEARTBURN/INDIGESTION; Start 05/25/18 at 16:30 Amlodipine Besylate (Norvasc) 10 mg DAILY PO Last administered on 06/02/18at 08:29; Start 05/25/18 at 09:00 Atorvastatin Calcium (Lipitor) 10 mg DAILY PO Last administered on 06/02/18at 08:28; Start 05/27/18 at 09:00 Clonidine HCl (Catapres) 0.1 mg Q8HP PRN PO HYPERTENSION Last administered on 05/26/18at 17:27; Start 05/25/18 at 18:45; Stop 05/27/18 at 13:48; Status DC Diltiazem HCl (Cardizem Cd) 120 mg BID PO Last administered on 05/25/18at 22:09; Start 05/25/18 at 21:00; Stop 05/26/18 at 17:17; Status DC Lisinopril (Prinivil) 10 mg DAILY PO Last administered on 05/27/18at 08:21; Start 05/25/18 at 09:00; Stop 05/27/18 at 13:48; Status DC Lisinopril (Prinivil) 20 mg DAILY PO Last administered on 06/02/18at 08:29; Start 05/28/18 at 09:00 Magnesium Hydroxide (Milk Of Magnesia) 30 ml DAILYPRN PRN PO CONSTIPATION; Sta rt 05/25/18 at 16:30 Metformin HCl (Glucophage) 500 mg BID@08,18 PO Last administered on 06/02/18at 08:29; Start 05/26/18 at 18:00 Olanzapine (ZyPREXA ZYDIS) 5 mg Q6HP PRN PO AGITATION; Start 05/25/18 at 16:30 Paliperidone (Invega) 3 mg BID PO Last administered on 06/02/18at 08:28; Start 05/25/18 at 21:00 Trazodone HCl (Desyrel) 50 mg QHSP PRN PO INSOMNIA; Start 05/25/18 at 16:30 Allergies Coded Allergies: No Known Allergies (Verified , 06/02/04) DEDRA BENITEZ PGY-1 Jun 02, 2018 14:01
[2018-06-02] MEDS ORDERED: QUEtiapine FUMARATE 25 MG TAB PO SCH (16:00)
[2018-06-02 18:00] VITALS: BP 142/79
[2018-06-02] MEDS ORDERED: QUEtiapine FUMARATE 200 MG TAB PO SCH (21:00)
[2018-06-03 06:44] VITALS: BP 131/77
[2018-06-03] MEDS: amLODIPine 10 MG TAB PO SCH (08:27)
[2018-06-03] MEDS: metFORMIN (GLUCOPHAGE) 500 MG TAB PO SCH ×2 (08:27→17:17)
[2018-06-03] MEDS: LISINOPRIL 20 MG TAB PO SCH (08:27)
[2018-06-03] MEDS: ATORVASTATIN 10 MG TAB PO SCH (08:27)
[2018-06-03] MEDS ORDERED: QUEtiapine FUMARATE 25 MG TAB PO SCH (09:00)
[2018-06-03 18:00] VITALS: BP 110/68
--- NOTE | 2018-06-03 19:45 | MHIPNPDOC ---
[facility] Progress Note Progress Note DATE OF SERVICE: 06/03/18 HISTORY: Patient is a 52 -year-old , male, who has a history of schizophrenia. States he was given groceries and wanted to get them himself. 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 States there were staff changes at his TLS. Says he has a court appearance for June 09 due to pushing facility maintenance worker last week, says "I gently escorted him away and he tripped". He discusses how he sees things during REM sleep, and asks what my favorite part of REM was, stating "engineering is mine". He continues to refuse medications a this time and does not appear internally preoccupied, but he is mildly disorganized with slurred circumstantial speech. He is agreeable to continued stay on the unit. Per [facility] evaluation he was having AH, increased paranoia and guarded behavior per staff at TLS, has not been taking medications for months which he confirms and has been locking himself in his room preventing CM to enters and speak with him with increasingly agitated behavior. He threw a maintenance working over the railing rending him unconscious. Per patient he states the facility maintenance worker was "stealing my stuff". Currently he he denies SI/HI/AVH/kermit. VITAL SIGNS: See below. NEW TEST RESULTS: see below. CURRENT MEDICATIONS: See below. MENTAL STATUS EXAMINATION: General Appearance: disheveled, hospital scrubs/clothing, obese, bald with long garcia hair, fair eye-contact Build: overweight Demeanor: calm, cooperative Eye Contact: average Activity: average Behavior: cooperative, relaxed, smiling at times Speech: spontaneous, normal rate, loud Mood: euthymic Affect: congruent with mood Thought Process: less Disorganized, no longer clang associations Thought Content (Delusions): denies SI, HI, AVH, Thought Content (Other): says he wants to improve, realizes he needs to use stove outdoors Thought Content (Aggressive): none reported Perception (Hallucinations): none reported Perception (Other): still doesn't seem to be responding to internal stimuli Cognition (Impairment of): less impaired attention and concentration Cognition(Intelligence Est.): average Oriented: Awake, Alert Insight: improving Judgment: improving Psychosis: Denies DIAGNOSES: 1. Unspecified schizophrenia spectrum and other psychotic disorder 2. tobacco use disorder 3. Cluster B and C traits ASSESSMENT: Requires continued medication/treatment to stabilize his psychosis. Continues to have both bizarre and non-bizarre delusions and is disorganized with poor attention/concentration. Agrees to take his medications. Denies SI/HI. Had Im 156 mg paliperidone yesterday, Qmonthly 234 mg IM paliperidone next due 07/01/18. Discontinued paliperidone 3 mg PO BID. States seroquel makes him sedated, but he is more organized after taking 200 mg last night, refusing today's dose, says he wants discontinued. Sleep and appetite improved. Splitting regarding TLS staff and mild paranoia, says he cannot trust some staff since they are "phony". Asked about moving his posessions to new apart as part of establishing TLS housing, seems indifferent to the plan. Asks to be started on abilify since heard less sedating, agrees to 2.5 mg PO QHS for now, d/c seroquel.Denies SI/HI. Denies AVH, kermit. MANAGEMENT PLAN: see above TIME SPENT: 15 minutes. Vital Signs Vital Signs Date Time Temp Pulse Resp B/P (MAP) Pulse Ox O2 Delivery O2 Flow Rate FiO2 06/03/18 08:27 131/77 06/03/18 08:27 112 06/03/18 06:44 97.6 16 Laboratory Data 24H Labs Laboratory Tests 2 06/02/18 17:35: Bedside Glucose (Misc Panel) 153H 06/03/18 06:05: Bedside Glucose (Misc Panel) 127H Current Medications Current Medications Acetaminophen (Tylenol Tab) 650 mg Q6HP PRN PO HEADACHE or DISCOMFORT Last administered on 05/28/18at 09:34; Start 05/25/18 at 16:30 Al Hydrox/Mg Hydrox/Simethicone (Mylanta) 30 ml Q4HP PRN PO HEARTBURN/INDIGESTION; Start 05/25/18 at 16:30 Amlodipine Besylate (Norvasc) 10 mg DAILY PO Last administered on 06/03/18at 08:27; Start 05/25/18 at 09:00 Aripiprazole (AbiLIFY) 2.5 mg QHS PO ; Start 06/03/18 at 21:00 Atorvastatin Calcium (Lipitor) 10 mg DAILY PO Last administered on 06/03/18 08:27; Start 05/27/18 at 09:00 Clonidine HCl (Catapres) 0.1 mg Q8HP PRN PO HYPERTENSION Last administered on 05/26/18 17:27; Start 05/25/18 at 18:45; Stop 05/27/18 at 13:48; Status DC Diltiazem HCl (Cardizem Cd) 120 mg BID PO Last administered on 05/25/18 22:09; Start 05/25/18 at 21:00; Stop 05/26/18 at 17:17; Status DC Lisinopril (Prinivil) 10 mg DAILY PO Last administered on 05/27/18 08:21; Start 05/25/18 at 09:00; Stop 05/27/18 at 13:48; Status DC Lisinopril (Prinivil) 20 mg DAILY PO Last administered on 06/03/18 08:27; Start 05/28/18 at 09:00 Magnesium Hydroxide (Milk Of Magnesia) 30 ml DAILYPRN PRN PO CONSTIPATION; Start 05/25/18 at 16:30 Metformin HCl (Glucophage) 500 mg BID@08,18 PO Last administered on 06/03/18 08:27; Start 05/26/18 at 18:00 Olanzapine (ZyPREXA ZYDIS) 5 mg Q6HP PRN PO AGITATION; Start 05/25/18 at 16:30 Paliperidone (Invega) 3 mg BID PO Last administered on 06/02/18at 08:28; Start 05/25/18 at 21:00; Stop 06/02/18 at 14:00; Status DC Quetiapine Fumarate (SEROquel) 25 mg DAILY@1600 PO Last administered on 06/02/18 16:18; Start 06/02/18 at 16:00; Stop 06/03/18 at 10:23; Status DC Quetiapine Fumarate (SEROquel) 25 mg QAM PO ; Start 06/03/18 at 09:00; Stop 06/03/18 at 10:23; Status DC Quetiapine Fumarate (SEROquel) 200 mg QHS PO Last administered on 4/23/19at 21:09; Start 06/02/18 at 21:00; Stop 06/03/18 at 10:23; Status DC Trazodone HCl (Desyrel) 50 mg QHSP PRN PO INSOMNIA; Start 05/25/18 at 16:30 Allergies Coded Allergies: No Known Allergies (Verified , 06/02/04) A-FIB/CHADSVASC A-FIB History Current/History of A-Fib/PAF?: No Current Oral Anticoagulant The: No Age/Risk Factor Scoring CHADSVASC: CHADSVASC Response (Comments) Value Age Risk Factor Age < 65 years old 0 Gender Risk Factor Male 0 Hx of CHF No 0 Hx of HTN Yes 1 Hx of Stroke/TIA/or VTE No 0 Hx of Diabetes Yes 1 Hx of Vascular Disease No 0 Total 2 Treatment Treatment ordered: NONE Reason Anticoagulant not given: Not indicated/[id number] DEDRA BENITEZ PGY-1 Jun 03, 2018 14:43
[2018-06-04 07:13] VITALS: BP 152/88
[2018-06-04] MEDS: metFORMIN (GLUCOPHAGE) 500 MG TAB PO SCH ×2 (07:40→17:52)
[2018-06-04] MEDS: amLODIPine 10 MG TAB PO SCH (08:20)
[2018-06-04] MEDS: LISINOPRIL 20 MG TAB PO SCH (08:20)
[2018-06-04] MEDS: ATORVASTATIN 10 MG TAB PO SCH (08:20)
--- NOTE | 2018-06-04 11:20 | MHIPNPDOC ---
[facility] Progress Note Progress Note DATE OF SERVICE: 06/04/18 HISTORY: Patient is a 52 -year-old , male, who has a history of schizophrenia. States he was given groceries and wanted to get them himself. 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 States there were staff changes at his TLS. 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 He discusses how he sees things during REM sleep, and asks what my favorite part of REM was, stating "engineering is mine". He continues to refuse medications a this time and does not appear internally preoccupied, but he is mildly disorganized with slurred circumstantial speech. He is agreeable to continued stay on the unit. Today continues to be less disorganized and calmer. Currently he he denies SI/HI/AVH/kermit. VITAL SIGNS: See below. NEW TEST RESULTS: see below. CURRENT MEDICATIONS: See below. MENTAL STATUS EXAMINATION: General Appearance: disheveled, hospital scrubs/clothing, obese, bald with long garcia hair, fair eye-contact Build: overweight Demeanor: calm, cooperative Eye Contact: average Activity: average Behavior: cooperative, relaxed, smiling at times Speech: spontaneous, normal rate, loud Mood: euthymic Affect: congruent with mood Thought Process: increasingly vless Disorganized, no longer clang associations Thought Content (Delusions): paranoia, persecutory delusions, denies SI, HI, AVH, Thought Content (Other): says continues wanting to improve, realizes he needs to use stove outdoors Thought Content (Aggressive): none reported Perception (Hallucinations): none reported Perception (Other): does not seem to be responding to internal stimuli, delusion s Cognition (Impairment of): continues to have less impaired attention and concentration Cognition(Intelligence Est.): average Oriented: Awake, Alert Insight: improving Judgment: improving Psychosis: Denies DIAGNOSES: 1. Unspecified schizophrenia spectrum and other psychotic disorder 2. tobacco use disorder 3. Cluster B and C traits ASSESSMENT: Requires continued medication/treatment to stabilize his psychosis. Continues to have both bizarre and non-bizarre delusions and is disorganized with poor attention/concentration. Agrees to take his medications. Denies SI/HI. Had Im 156 mg paliperidone yesterday, Qmonthly 234 mg IM paliperidone next due 07/01/18. He denies side effects from medications, says tolerated aripiprazole 2.5 mg QHS, will add 2.5 mg QAM, appears less disorganized and more energetic, when discussing TLS planning says he still has negative views of "some members" he cannot trust. He continues to have some paranoid delusions, but does not appear to be responding to internal stimuli. He now has somatic symptoms, stating he can feel blood moving through his arms. Sleep and appetite are improved. Denies SI/HI. Denies AVH, kermit. Continue medications. MANAGEMENT PLAN: see above TIME SPENT: 15 minutes. Vital Signs Vital Signs Date Time Temp Pulse Resp B/P (MAP) Pulse Ox O2 Delivery O2 Flow Rate FiO2 06/04/18 07:13 97.4 112 18 152/88 (109) Laboratory Data 24H Labs Laboratory Tests 2 06/03/18 17:17: Bedside Glucose (Misc Panel) 128H 06/04/18 06:38: Bedside Glucose (Misc Panel) 171H Current Medications Current Medications Acetaminophen (Tylenol Tab) 650 mg Q6HP PRN PO HEADACHE or DISCOMFORT Last administered on 05/28/18at 09:34; Start 05/25/18 at 16:30 Al Hydrox/Mg Hydrox/Simethicone (Mylanta) 30 ml Q4HP PRN PO HEARTBURN/INDIGESTION; Start 05/25/18 at 16:30 Amlodipine Besylate (Norvasc) 10 mg DAILY PO Last administered on 06/03/18at 08:27; Start 05/25/18 at 09:00 Aripiprazole (AbiLIFY) 2.5 mg QHS PO Last administered on 06/03/18at 21:23; Start 06/03/18 at 21:00 Atorvastatin Calcium (Lipitor) 10 mg DAILY PO Last administered on 06/03/18at 08:27; Start 05/27/18 at 09:00 Clonidine HCl (Catapres) 0.1 mg Q8HP PRN PO HYPERTENSION Last administered on 05/26/18 17:27; Start 05/25/18 at 18:45; Stop 05/27/18 at 13:48; Status DC Diltiazem HCl (Cardizem Cd) 120 mg BID PO Last administered on 05/25/18at 22:09; Start 05/25/18 at 21:00; Stop 05/26/18 at 17:17; Status DC Lisinopril (Prinivil) 10 mg DAILY PO Last administered on 05/27/18 08:21; Start 05/25/18 at 09:00; Stop 05/27/18 at 13:48; Status DC Lisinopril (Prinivil) 20 mg DAILY PO Last administered on 06/03/18at 08:27; Start 05/28/18 at 09:00 Magnesium Hydroxide (Milk Of Magnesia) 30 ml DAILYPRN PRN PO CONSTIPATION; Start 05/25/18 at 16:30 Metformin HCl (Glucophage) 500 mg BID@08,18 PO Last administered on 06/04/18at 07:40; Start 05/26/18 at 18:00 Olanzapine (ZyPREXA ZYDIS) 5 mg Q6HP PRN PO AGITATION; Start 05/25/18 at 16:30 Paliperidone (Invega) 3 mg BID PO Last administered on 06/02/18at 08:28; Start 05/25/18 at 21:00; Stop 06/02/18 at 14:00; Status DC Quetiapine Fumarate (SEROquel) 25 mg DAILY@1600 PO Last administered on 06/02/18at 16:18; Start 06/02/18 at 16:00; Stop 06/03/18 at 10:23; Status DC Quetiapine Fumarate (SEROquel) 25 mg QAM PO ; Start 06/03/18 at 09:00; Stop 06/03/18 at 10:23; Status DC Quetiapine Fumarate (SEROquel) 200 mg QHS PO Last administered on 06/02/18at 21:09; Start 06/02/18 at 21:00; Stop 06/03/18 at 10:23; Status DC Trazodone HCl (Desyrel) 50 mg QHSP PRN PO INSOMNIA; Start 05/25/18 at 16:30 Allergies Coded Allergies: No Known Allergies (Verified , 06/02/04) DEDRA BENITEZ PGY-1 Jun 04, 2018 08:05
[2018-06-04 18:06] VITALS: BP 148/87
[2018-06-05 06:24] VITALS: BP 126/79
[2018-06-05] MEDS: metFORMIN (GLUCOPHAGE) 500 MG TAB PO SCH ×2 (07:30→17:03)
[2018-06-05] MEDS: ATORVASTATIN 10 MG TAB PO SCH (09:12)
[2018-06-05] MEDS: LISINOPRIL 20 MG TAB PO SCH (09:12)
[2018-06-05] MEDS: amLODIPine 10 MG TAB PO SCH (09:13)
[2018-06-05 18:11] VITALS: BP 134/83
[2018-06-06 06:34] VITALS: BP 136/78
[2018-06-06] MEDS: metFORMIN (GLUCOPHAGE) 500 MG TAB PO SCH ×2 (08:20→17:27)
[2018-06-06] MEDS: LISINOPRIL 20 MG TAB PO SCH (08:20)
[2018-06-06] MEDS: ATORVASTATIN 10 MG TAB PO SCH (08:20)
[2018-06-06] MEDS: PILL CRUSHER/CUTTER 1 EACH XX PRN (08:20)
[2018-06-06] MEDS: amLODIPine 10 MG TAB PO SCH (08:20)
--- NOTE | 2018-06-06 11:16 | MHIPNPDOC ---
[facility] Progress Note Progress Note DATE OF SERVICE: 06/05/18 HISTORY: Patient is a 52 -year-old , male, who has a history of schizophrenia. States he was given groceries and wanted to get them himself. 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 States there were staff changes at his TLS. Says he has a court appearance for June 09 due to pushing supervisor ship maintenance services last week, says "I gently escorted him away and he tripped". He discusses how he sees things during REM sleep, and asks what my favorite part of REM was, stating "engineering is mine". He continues to refuse medications a this time and does not appear internally preoccupied, but he is mildly disorganized with slurred circumstantial speech. He is agreeable to continued stay on the unit. Today continues to be less disorganized and calmer. Currently he he denies SI/HI/AVH/kermit. VITAL SIGNS: See below. NEW TEST RESULTS: see below. CURRENT MEDICATIONS: See below. MENTAL STATUS EXAMINATION: General Appearance: disheveled, hospital scrubs/clothing, obese, bald with long garcia hair, fair eye-contact Build: overweight Demeanor: calm, cooperative Eye Contact: average Activity: average Behavior: cooperative, relaxed, smiling at times Speech: spontaneous, normal rate, loud Mood: euthymic Affect: congruent with mood Thought Process: a little less disorganized. He is still tangential and concrete Thought Content (Delusions): paranoia, persecutory delusions, denies SI, HI, AVH, Thought Content (Other): he is still focused on the idea that he has an apartment ( is not his, it's TLS) and that he has to go back there. He is not processing the fact that he has to go to a different house/apartment Thought Content (Aggressive): none reported Perception (Hallucinations): none reported Perception (Other): He is still delusional but he doesn't seem to be responding to internal stimuli Cognition (Impairment of): attention and concentration Cognition(Intelligence Est.): average Oriented: Awake, Alert Insight: poor Judgment: poor Psychosis: Denies DIAGNOSES: 1. Unspecified schizophrenia spectrum and other psychotic disorder 2. tobacco use disorder 3. Cluster B and C traits ASSESSMENT: Patient's mental status exam did not change much from yesterday except that he was more guarded, more suspicious today with some staff members because they told him that he would need to wait and stay at [facility] while [employer] [facility] finds him a place to live by himself. He has insisted that he wants to go back to his old apartment because he sees that apartment as his property and he is not processing that is not his, it is [facility] [facility] property. He has been saying that he will complain because there si no reason for him to be at [facility] at this point (according to him) but the fact is that he can not be discharged to the street, he has a place to go which is [facility], where he has been living, but needs to go somewhere else so that he can have his own apartment and not run int problems with other Residents. Patient is taking his medications but he is still psychoti c, he still has paranoid/bizarre delusions. will continue to monitor. MANAGEMENT PLAN: see above TIME SPENT: 15 minutes. Vital Signs Vital Signs Date Time Temp Pulse Resp B/P (MAP) Pulse Ox O2 Delivery O2 Flow Rate FiO2 06/06/18 08:20 136/78 06/06/18 08:20 118 06/06/18 06:34 97.5 18 Laboratory Data 24H Labs Laboratory Tests 2 06/05/18 17:01: Bedside Glucose (Misc Panel) 158H 06/06/18 06:29: Bedside Glucose (Misc Panel) 118H Current Medications Current Medications Acetaminophen (Tylenol Tab) 650 mg Q6HP PRN PO HEADACHE or DISCOMFORT Last administered on 05/28/18at 09:34; Start 05/25/18 at 16:30 Al Hydrox/Mg Hydrox/Simethicone (Mylanta) 30 ml Q4HP PRN PO HEARTBURN/INDIGESTION; Start 05/25/18 at 16:30 Amlodipine Besylate (Norvasc) 10 mg DAILY PO Last administered on 06/06/18 08:20; Start 05/25/18 at 09:00 Aripiprazole (AbiLIFY) 2.5 mg QAM PO Last administered on 06/06/18 08:20; Start 06/05/18 at 09:00 Aripiprazole (AbiLIFY) 2.5 mg QHS PO Last administered on 06/05/18 21:16; Start 06/03/18 at 21:00 Atorvastatin Calcium (Lipitor) 10 mg DAILY PO Last administered on 06/06/18 08:20; Start 05/27/18 at 09:00 Clonidine HCl (Catapres) 0.1 mg Q8HP PRN PO HYPERTENSION Last administered on 05/26/18 17:27; Start 05/25/18 at 18:45; Stop 05/27/18 at 13:48; Status DC Diltiazem HCl (Cardizem Cd) 120 mg BID PO Last administered on 05/25/18 22:09; Start 05/25/18 at 21:00; Stop 05/26/18 at 17:17; Status DC Lisinopril (Prinivil) 10 mg DAILY PO Last administered on 05/27/18 08:21; Start 05/25/18 at 09:00; Stop 05/27/18 at 13:48; Status DC Lisinopril (Prinivil) 20 mg DAILY PO Last administered on 06/06/18 08:20; Start 05/28/18 at 09:00 Magnesium Hydroxide (Milk Of Magnesia) 30 ml DAILYPRN PRN PO CONSTIPATION; Start 05/25/18 at 16:30 Metformin HCl (Glucophage) 500 mg BID@08,18 PO Last administered on 06/06/18 08:20; Start 05/26/18 at 18:00 Olanzapine (ZyPREXA ZYDIS) 5 mg Q6HP PRN PO AGITATION; Start 05/25/18 at 16:30 Paliperidone (Invega) 3 mg BID PO Last administered on 06/02/18at 08:28; Start 05/25/18 at 21:00; Stop 06/02/18 at 14:00; Status DC Quetiapine Fumarate (SEROquel) 25 mg DAILY@1600 PO Last administered on 06/02/18 16:18; Start 06/02/18 at 16:00; Stop 06/03/18 at 10:23; Status DC Quetiapine Fumarate (SEROquel) 25 mg QAM PO ; Start 06/03/18 at 09:00; Stop 06/03/18 at 10:23; Status DC Quetiapine Fumarate (SEROquel) 200 mg QHS PO Last administered on 06/02/18at 21:09; Start 06/02/18 at 21:00; Stop 06/03/18 at 10:23; Status DC Trazodone HCl (Desyrel) 50 mg QHSP PRN PO INSOMNIA; Start 05/25/18 at 16:30 Allergies Coded Allergies: No Known Allergies (Verified , 06/02/04) A-FIB/CHADSVASC A-FIB History Current/History of A-Fib/PAF?: No Current Oral Anticoagulant The: No Age/Risk Factor Scoring CHADSVASC: CHADSVASC Response (Comments) Value Age Risk Factor Age < 65 years old 0 Gender Risk Factor Male 0 Hx of CHF No 0 Hx of HTN Yes 1 Hx of Stroke/TIA/or VTE No 0 Hx of Diabetes Yes 1 Hx of Vascular Disease No 0 Total 2 Treatment Treatment ordered: NONE Reason Anticoagulant not given: Not indicated/[id number] PERFECTO MEJIA MD Jun 06, 2018 11:16
[2018-06-06 18:26] VITALS: BP 131/61
[2018-06-07 06:59] VITALS: BP 140/84
[2018-06-07] MEDS: metFORMIN (GLUCOPHAGE) 500 MG TAB PO SCH ×2 (08:57→17:38)
[2018-06-07] MEDS: ATORVASTATIN 10 MG TAB PO SCH (09:14)
[2018-06-07] MEDS: LISINOPRIL 20 MG TAB PO SCH (09:15)
[2018-06-07] MEDS: amLODIPine 10 MG TAB PO SCH (09:15)
[2018-06-07] MEDS: PILL CRUSHER/CUTTER 1 EACH XX PRN (09:16)
[2018-06-07 18:41] VITALS: BP 133/81
[2018-06-08 06:39] VITALS: BP 138/82
[2018-06-08] MEDS: metFORMIN (GLUCOPHAGE) 500 MG TAB PO SCH ×2 (08:24→17:18)
[2018-06-08] MEDS: PILL CRUSHER/CUTTER 1 EACH XX PRN (08:25)
[2018-06-08] MEDS: LISINOPRIL 20 MG TAB PO SCH (08:25)
[2018-06-08] MEDS: ATORVASTATIN 10 MG TAB PO SCH (08:25)
[2018-06-08] MEDS: amLODIPine 10 MG TAB PO SCH (08:25)
--- NOTE | 2018-06-08 15:27 | MHIPNPDOC ---
[facility] Progress Note Progress Note DATE OF SERVICE: 06/08/18 HISTORY: Patient is a 52 -year-old , male, who has a history of schizophrenia. States he was given groceries and wanted to get them himself. 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 States there were staff changes at his TLS. 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 He discusses how he sees things during REM sleep, and asks what my favorite part of REM was, stating "engineering is mine". He continues to refuse medications a this time and does not appear internally preoccupied, but he is mildly disorganized with slurred circumstantial speech. He is agreeable to continued stay on the unit. Today continues to be disorganized and paranoid. Asks to check all his medications and have side effects labelled. Multiple attempts to explain medications and side effects does not improve understanding of his care. When explained some of his medications including statins had side effects of muscle pain he stated he was having upper body "spasms" that "come and go". When asked why he needs more information, states he needs it for the court date. Explained to him he has a court date for pushing the maintenance syd at his TLS apartment and another court date for retention order. Despite explaining this he stated "I have my service delivery manager and look forward to it". Currently he denies SI/HI/AVH/kermit. VITAL SIGNS: See below. NEW TEST RESULTS: see below. CURRENT MEDICATIONS: See below. MENTAL STATUS EXAMINATION: General Appearance: disheveled, hospital scrubs/clothing, obese, bald with long garcia hair, fair eye-contact Build: overweight Demeanor: calm, cooperative Eye Contact: average Activity: average Behavior: cooperative, relaxed, smiling at times Speech: spontaneous, normal rate, loud Mood: euthymic Affect: congruent with mood Thought Process: increasingly vless Disorganized, no longer clang associations Thought Content (Delusions): paranoia, persecutory delusions, denies SI, HI, AVH, Thought Content (Other): says continues wanting to improve, realizes he needs to use stove outdoors Thought Content (Aggressive): none reported Perception (Hallucinations): none reported Perception (Other): does not seem to be responding to internal stimuli, delusions Cognition (Impairment of): continues to have less impaired attention and concentration Cognition(Intelligence Est.): average Oriented: Awake, Alert Insight: poor, but improving Judgment: poor, but improving Psychosis: Denies DIAGNOSES: 1. Unspecified schizophrenia spectrum and other psychotic disorder 2. tobacco use disorder 3. Cluster B and C traits ASSESSMENT: Requires continued medication/treatment to stabilize his psychosis. Continues to have non-bizarre delusions, poor attention and concentration and paranoia. Agrees to take his medications. Denies SI/HI. Had last Im 156 mg paliperidone Qmonthly 234 mg IM paliperidone next due 07/01/18. Has been a ttending some groups. Started PRN Cogentin 1 mg BIDP for possible acute dystonia, says tolerates aripiprazole and denies akathisia continue 2.5 mg QAM, increased to 5 mg QPM, appears less disorganized but continues to be paranoid, but does not appear to b e responding to internal stimuli. Continues to have somatic symptoms, which may indicate his psychosis is improving. Sleep and appetite are improved. Denies SI/HI. Denies AVH, kermit. Continue other medications. MANAGEMENT PLAN: see above TIME SPENT: 20 minutes. Vital Signs Vital Signs Date Time Temp Pulse Resp B/P (MAP) Pulse Ox O2 Delivery O2 Flow Rate FiO2 06/08/18 08:25 130/79 06/08/18 08:25 100 06/08/18 06:39 98.7 16 Laboratory Data 24H Labs Laboratory Tests 2 06/07/18 17:37: Bedside Glucose (Misc Panel) 179H 06/08/18 06:54: Bedside Glucose (Misc Panel) 140H Current Medications Current Medications Acetaminophen (Tylenol Tab) 650 mg Q6HP PRN PO HEADACHE or DISCOMFORT Last administered on 05/28/18at 09:34; Start 05/25/18 at 16:30 Al Hydrox/Mg Hydrox/Simethicone (Mylanta) 30 ml Q4HP PRN PO HEARTBURN/INDIGESTION; Start 05/25/18 at 16:30 Amlodipine Besylate (Norvasc) 10 mg DAILY PO Last administered on 06/08/18at 08:25; Start 05/25/18 at 09:00 Aripiprazole (AbiLIFY) 2.5 mg QAM PO Last administered on 06/08/18 08:25; Start 06/05/18 at 09:00 Aripiprazole (AbiLIFY) 2.5 mg QHS PO Last administered on 06/07/18at 21:45; Start 06/03/18 at 21:00; Stop 06/08/18 at 10:56; Status DC Aripiprazole (AbiLIFY) 5 mg QHS PO ; Start 06/08/18 at 21:00 Atorvastatin Calcium (Lipitor) 10 mg DAILY PO Last administered on 06/08/18 08:25; Start 05/27/18 at 09:00 Clonidine HCl (Catapres) 0.1 mg Q8HP PRN PO HYPERTENSION Last administered on 05/26/18 17:27; Start 05/25/18 at 18:45; Stop 05/27/18 at 13:48; Status DC Diltiazem HCl (Cardizem Cd) 120 mg BID PO Last administered on 05/25/18at 22:09; Start 05/25/18 at 21:00; Stop 05/26/18 at 17:17; Status DC Lisinopril (Prinivil) 10 mg DAILY PO Last administered on 05/27/18 08:21; Start 05/25/18 at 09:00; Stop 05/27/18 at 13:48; Status DC Lisinopril (Prinivil) 20 mg DAILY PO Last administered on 06/08/18 08:25; Start 05/28/18 at 09:00 Magnesium Hydroxide (Milk Of Magnesia) 30 ml DAILYPRN PRN PO CONSTIPATION; Start 05/25/18 at 16:30 Metformin HCl (Glucophage) 500 mg BID@08,18 PO Last administered on 06/08/18at 08:24; Start 05/26/18 at 18:00 Olanzapine (ZyPREXA ZYDIS) 5 mg Q6HP PRN PO AGITATION; Start 05/25/18 at 16:30 Paliperidone (Invega) 3 mg BID PO Last administered on 06/02/18at 08:28; Start 05/25/18 at 21:00; Stop 06/02/18 at 14:00; Status DC Quetiapine Fumarate (SEROquel) 25 mg DAILY@1600 PO Last administered on 06/02/18at 16:18; Start 06/02/18 at 16:00; Stop 06/03/18 at 10:23; Status DC Quetiapine Fumarate (SEROquel) 25 mg QAM PO ; Start 06/03/18 at 09:00; Stop 06/03/18 at 10:23; Status DC Quetiapine Fumarate (SEROquel) 200 mg QHS PO Last administered on 06/02/18at 21:09; Start 06/02/18 at 21:00; Stop 06/03/18 at 10:23; Status DC Trazodone HCl (Desyrel) 50 mg QHSP PRN PO INSOMNIA Last administered on 06/07/18at 21:45; Start 05/25/18 at 16:30 Allergies Coded Allergies: No Known Allergies (Verified , 06/02/04) DEDRA BENITEZ PGY-1 Jun 08, 2018 15:27
[2018-06-08] MEDS ORDERED: BENZTROPINE 1 MG TAB PO PRN (15:30)
[2018-06-08 18:00] VITALS: BP 143/86
[2018-06-09 06:37] VITALS: BP 145/85
[2018-06-09] MEDS: metFORMIN (GLUCOPHAGE) 500 MG TAB PO SCH ×2 (07:45→17:01)
[2018-06-09] MEDS: ATORVASTATIN 10 MG TAB PO SCH (08:19)
[2018-06-09] MEDS: PILL CRUSHER/CUTTER 1 EACH XX PRN (08:19)
[2018-06-09] MEDS: LISINOPRIL 20 MG TAB PO SCH (08:20)
[2018-06-09] MEDS: amLODIPine 10 MG TAB PO SCH (08:20)
--- NOTE | 2018-06-09 10:45 | MHIPNPDOC ---
[facility] Progress Note Progress Note DATE OF SERVICE: 06/09/18 HISTORY: Patient is a 52 -year-old , male, who has a history of schizophrenia. States he was given groceries and wanted to get them himself. 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 States there were staff changes at his TLS. 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 He discusses how he sees things during REM sleep, and asks what my favorite part of REM was, stating "engineering is mine". He is agreeable to continued stay on the unit. Interval history: Today is still paranoid and mildly disorganized. Asks to understand the clinical chemistry of future medication interactions. Says some people can understand their internal body chemistry. States the TLS service is a "ponzi scheme" and wonders if I am involved. Says he is concerned regarding being robbed if he works with TLS. Currently he denies SI/HI/AVH/kermit. Is calm during interview, reassured him he is in a safe environment. VITAL SIGNS: See below. NEW TEST RESULTS: see below. CURRENT MEDICATIONS: See below. MENTAL STATUS EXAMINATION: General Appearance: disheveled, hospital scrubs/clothing, obese, bald with long garcia hair, fair eye-contact Build: overweight Demeanor: calm, cooperative Eye Contact: average Activity: average Behavior: cooperative, relaxed, smiling at times Speech: spontaneous, normal rate, loud Mood: euthymic Affect: congruent with mood Thought Process: disorganized Thought Content (Delusions): paranoia, persecutory delusions, magical thinking, denies SI, HI, AVH, Thought Content (Other): says continues wanting to improve, realizes he needs to use stove outdoors Thought Content (Aggressive): none reported Perception (Hallucinations): none reported Perception (Other): does not seem to be responding to internal stimuli, delusions Cognition (Impairment of): continues to have less impaired attention and concentration Cognition(Intelligence Est.): average Oriented: Awake, Alert Insight: poor, but improving Judgment: poor, but improving Psychosis: Denies, but appears disorganized DIAGNOSES: 1. Schizophrenia vs Schizoaffective Disorder 2. tobacco use disorder 3. Cluster B and C traits ASSESSMENT: Still requires continued medication/treatment to stabilize his psychosis. Agrees to continue abilify 2.5 mg QAM, 5 mg QPM. Continues to have non-bizarre delusions, poor attention/concentration and paranoia/persecutory delusions related to TLS services. Agrees to take his medications. Denies SI/HI. Had last Im 156 mg paliperidone Qmonthly 234 mg IM paliperidone next due 07/01/18. Pending court date for retention. Delayed court date related to pushing water maintenance supervisor after discharge. Continues to attend groups. Continue PRN Cogentin 1 mg BIDP for possible acute dystonia, says tolerates aripiprazole and denies akathisia continue 2.5 mg QAM, increased to 5 mg QPM, continues to be disorganized and paranoid. Does not ap pear to be responding to internal stimuli. Denies SI/HI, AVH, kermit. Continue other medications. MANAGEMENT PLAN: see above TIME SPENT: 15 minutes. Vital Signs Vital Signs Date Time Temp Pulse Resp B/P (MAP) Pulse Ox O2 Delivery O2 Flow Rate FiO2 06/09/18 08:20 136/81 06/09/18 08:20 100 06/09/18 06:37 98.4 16 Laboratory Data 24H Labs Laboratory Tests 2 06/08/18 17:17: Bedside Glucose (Misc Panel) 191H 06/09/18 06:24: Bedside Glucose (Misc Panel) 149H Current Medications Current Medications Acetaminophen (Tylenol Tab) 650 mg Q6HP PRN PO HEADACHE or DISCOMFORT Last admi nistered on 05/28/18at 09:34; Start 05/25/18 at 16:30 Al Hydrox/Mg Hydrox/Simethicone (Mylanta) 30 ml Q4HP PRN PO HEARTBURN/PATTIE GESTION; Start 05/25/18 at 16:30 Amlodipine Besylate (Norvasc) 10 mg DAILY PO Last administered on 06/09/18 08:20; Start 05/25/18 at 09:00 Aripiprazole (AbiLIFY) 2.5 mg QAM PO Last administered on 06/09/18 08:19; Start 06/05/18 at 09:00 Aripiprazole (AbiLIFY) 2.5 mg QHS PO Last administered on 06/07/18 21:45; Start 06/03/18 at 21:00; Stop 06/08/18 at 10:56; Status DC Aripiprazole (AbiLIFY) 5 mg QHS PO Last administered on 06/08/18 21:42; Start 06/08/18 at 21:00 Atorvastatin Calcium (Lipitor) 10 mg DAILY PO Last administered on 06/09/18 08:19; Start 05/27/18 at 09:00 Benztropine Mesylate (Cogentin) 1 mg BIDP PRN PO EXTRAPYRAMIDAL SIDE EFFECTS; Start 06/08/18 at 15:30 Clonidine HCl (Catapres) 0.1 mg Q8HP PRN PO HYPERTENSION Last administered on 05/26/18 17:27; Start 05/25/18 at 18:45; Stop 05/27/18 at 13:48; Status DC Diltiazem HCl (Cardizem Cd) 120 mg BID PO Last administered on 05/25/18 22:09; Start 05/25/18 at 21:00; Stop 05/26/18 at 17:17; Status DC Lisinopril (Prinivil) 10 mg DAILY PO Last administered on 05/27/18 08:21; Start 05/25/18 at 09:00; Stop 05/27/18 at 13:48; Status DC Lisinopril (Prinivil) 20 mg DAILY PO Last administered on 06/09/18 08:20; Start 05/28/18 at 09:00 Magnesium Hydroxide (Milk Of Magnesia) 30 ml DAILYPRN PRN PO CONSTIPATION; Start 05/25/18 at 16:30 Metformin HCl (Glucophage) 500 mg BID@08,18 PO Last administered on 06/09/18 07:45; Start 05/26/18 at 18:00 Olanzapine (ZyPREXA ZYDIS) 5 mg Q6HP PRN PO AGITATION; Start 05/25/18 at 16:30 Paliperidone (Invega) 3 mg BID PO Last administered on 06/02/18 08:28; Start 05/25/18 at 21:00; Stop 06/02/18 at 14:00; Status DC Quetiapine Fumarate (SEROquel) 25 mg DAILY@1600 PO Last administered on 4/23/19at 16:18; Start 06/02/18 at 16:00; Stop 06/03/18 at 10:23; Status DC Quetiapine Fumarate (SEROquel) 25 mg QAM PO ; Start 06/03/18 at 09:00; Stop 06/03/18 at 10:23; Status DC Quetiapine Fumarate (SEROquel) 200 mg QHS PO Last administered on 06/02/18at 21:09; Start 06/02/18 at 21:00; Stop 06/03/18 at 10:23; Status DC Trazodone HCl (Desyrel) 50 mg QHSP PRN PO INSOMNIA Last administered on 06/07/18at 21:45; Start 05/25/18 at 16:30 Allergies Coded Allergies: No Known Allergies (Verified , 06/02/04) DEDRA BENITEZ PGY-1 Jun 09, 2018 10:45
[2018-06-09] MEDS ORDERED: PALIPERIDONE PALMITATE 156MG/1ML INJ(INVEGA)(J2426)(FREE PSY INPT ONLY) IM ONE (17:00)
[2018-06-09 18:00] VITALS: BP 134/78
[2018-06-10 06:40] VITALS: BP 134/81
[2018-06-10] MEDS: metFORMIN (GLUCOPHAGE) 500 MG TAB PO SCH ×2 (07:20→17:13)
[2018-06-10 08:45] VITALS: BP 134/81
[2018-06-10] MEDS: ATORVASTATIN 10 MG TAB PO SCH (08:46)
[2018-06-10] MEDS: LISINOPRIL 20 MG TAB PO SCH (08:46)
[2018-06-10] MEDS: PILL CRUSHER/CUTTER 1 EACH XX PRN (08:46)
[2018-06-10] MEDS: amLODIPine 10 MG TAB PO SCH (08:46)
--- NOTE | 2018-06-10 09:17 | MHIPNPDOC ---
[facility] Progress Note Progress Note DATE OF SERVICE: 06/10/18 HISTORY: Patient is a 52 -year-old , male, who has a history of schizophrenia. States he was given groceries and wanted to get them himself. 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 States there were staff changes at his TLS. 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 He discusses how he sees things during REM sleep, and asks what my favorite part of REM was, stating "engineering is mine". He is agreeable to continued stay on the unit. Interval history: Currently he denies SI/HI/AVH/kermit. Is calm during interview, again reassured him he is in a safe environment. VITAL SIGNS: See below. NEW TEST RESULTS: see below. CURRENT MEDICATIONS: See below. MENTAL STATUS EXAMINATION: General Appearance: disheveled, hospital scrubs/clothing, obese, bald with long garcia hair, fair eye-contact Build: overweight Demeanor: calm, cooperative Eye Contact: average Activity: average Behavior: cooperative, relaxed, not smiling Speech: spontaneous, normal rate, loud Mood: euthymic Affect: congruent with mood Thought Process: disorganized Thought Content (Delusions): paranoia, persecutory delusions, magical thinking, denies SI, HI, AVH, Thought Content (Other): Wants to attend court date and does not want to stay in other apartment when asked. Thought Content (Aggressive): none reported Perception (Hallucinations): none reported Perception (Other): does not seem to be responding to internal stimuli, has delusions Cognition (Impairment of): continues to have less impaired attention and concentration Cognition(Intelligence Est.): average Oriented: Awake, Alert Insight: improving Judgment: improving Psychosis: Denies, but appears mildly disorganized DIAGNOSES: 1. Schizophrenia vs Schizoaffective Disorder 2. tobacco use disorder 3. Cluster B and C traits ASSESSMENT: Still requires continued medication/treatment to stabilize his psychosis. Continues to have persecutory delusions and says her was to attend court date for retention, does not want his possessions moved to new property. Continues to have magical thinking and poor sleep despite refusing nighttime medication. 234 mg IM paliperidone due on 07/01/18. Delayed court date related to harm towards maintenance truck driver after discharge, was supposed to be held May 30/2019. Has been attending most groups. Took Im 156 mg paliperidone, Continue PRN. Continue Cogentin 1 mg BIDP for possible acute dystonia, continues to tolerate aripiprazole and denies akathisia continue 2.5 mg QAM, increased to 5 mg QPM. Does not appear to be responding to internal stimuli. Denies SI/HI, AVH, kermit. Continue other medications. MANAGEMENT PLAN: see above TIME SPENT: 15 minutes. Vital Signs Vital Signs Date Time Temp Pulse Resp B/P (MAP) Pulse Ox O2 Delivery O2 Flow Rate FiO2 06/10/18 08:46 118/81 06/10/18 08:46 116 06/10/18 08:45 97.7 16 94 Laboratory Data 24H Labs Laboratory Tests 2 06/09/18 16:42: Bedside Glucose (Misc Panel) 198H 06/10/18 06:20: Bedside Glucose (Misc Panel) 116H Current Medications Current Medications Acetaminophen (Tylenol Tab) 650 mg Q6HP PRN PO HEADACHE or DISCOMFORT Last administered on 05/28/18at 09:34; Start 05/25/18 at 16:30 Al Hydrox/Mg Hydrox/Simethicone (Mylanta) 30 ml Q4HP PRN PO HEARTBURN/INDIGESTION; Start 05/25/18 at 16:30 Amlodipine Besylate (Norvasc) 10 mg DAILY PO Last administered on 06/10/18at 08:46; Start 05/25/18 at 09:00 Aripiprazole (AbiLIFY) 2.5 mg QAM PO Last administered on 06/10/18at 08:46; Start 06/05/18 at 09:00 Aripiprazole (AbiLIFY) 2.5 mg QHS PO Last administered on 06/07/18 21:45; Start 06/03/18 at 21:00; Stop 06/08/18 at 10:56; Status DC Aripiprazole (AbiLIFY) 5 mg QHS PO Last administered on 06/09/18at 21:48; Start 06/08/18 at 21:00 Atorvastatin Calcium (Lipitor) 10 mg DAILY PO Last administered on 06/10/18at 08:46; Start 05/27/18 at 09:00 Benztropine Mesylate (Cogentin) 1 mg BIDP PRN PO EXTRAPYRAMIDAL SIDE EFFECTS; Start 06/08/18 at 15:30 Clonidine HCl (Catapres) 0.1 mg Q8HP PRN PO HYPERTENSION Last administered on 05/26/18at 17:27; Start 05/25/18 at 18:45; Stop 05/27/18 at 13:48; Status DC Diltiazem HCl (Cardizem Cd) 120 mg BID PO Last administered on 05/25/18at 22:09; Start 05/25/18 at 21:00; Stop 05/26/18 at 17:17; Status DC Lisinopril (Prinivil) 10 mg DAILY PO Last administered on 05/27/18at 08:21; Start 05/25/18 at 09:00; Stop 05/27/18 at 13:48; Status DC Lisinopril (Prinivil) 20 mg DAILY PO Last administered on 06/10/18at 08:46; Start 05/28/18 at 09:00 Magnesium Hydroxide (Milk Of Magnesia) 30 ml DAILYPRN PRN PO CONSTIPATION; Start 05/25/18 at 16:30 Metformin HCl (Glucophage) 500 mg BID@08,18 PO Last administered on 06/10/18at 07:20; Start 05/26/18 at 18:00 Olanzapine (ZyPREXA ZYDIS) 5 mg Q6HP PRN PO AGITATION; Start 05/25/18 at 16:30 Paliperidone (Invega) 3 mg BID PO Last administered on 06/02/18at 08:28; Start 05/25/18 at 21:00; Stop 06/02/18 at 14:00; Status DC Quetiapine Fumarate (SEROquel) 25 mg DAILY@1600 PO Last administered on 06/02/18at 16:18; Start 06/02/18 at 16:00; Stop 06/03/18 at 10:23; Status DC Quetiapine Fumarate (SEROquel) 25 mg QAM PO ; Start 06/03/18 at 09:00; Stop 06/03/18 at 10:23; Status DC Quetiapine Fumarate (SEROquel) 200 mg QHS PO Last administered on 06/02/18at 21:09; Start 06/02/18 at 21:00; Stop 06/03/18 at 10:23; Status DC Trazodone HCl (Desyrel) 50 mg QHSP PRN PO INSOMNIA Last administered on 06/07/18at 21:45; Start 05/25/18 at 16:30 Allergies Coded Allergies: No Known Allergies (Verified , 06/02/04) DEDRA BENITEZ PGY-1 June 10, 2018 09:16
[2018-06-10] MEDS ORDERED: PALIPERIDONE PALMITATE 156MG/1ML INJ(INVEGA)(J2426)(FREE PSY INPT ONLY) IM ONE (10:00)
[2018-06-10 18:00] VITALS: BP 136/82
[2018-06-11 07:23] VITALS: BP 125/66
[2018-06-11 08:08] VITALS: BP 129/74
[2018-06-11] MEDS: metFORMIN (GLUCOPHAGE) 500 MG TAB PO SCH (08:08)
[2018-06-11] MEDS: amLODIPine 10 MG TAB PO SCH (08:08)
[2018-06-11] MEDS: LISINOPRIL 20 MG TAB PO SCH (08:08)
[2018-06-11] MEDS: ATORVASTATIN 10 MG TAB PO SCH (08:08)
--- NOTE | 2018-06-11 08:34 | MHIPNPDOC ---
[facility] Progress Note Progress Note DATE OF SERVICE: 06/11/18 DATE OF SERVICE: 06/10/18 HISTORY: Patient is a 52 -year-old , male, who has a history of schizophrenia. States he was given groceries and wanted to get them himself. 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 States there were staff changes at his TLS. 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 He discusses how he sees things during REM sleep, and asks what my favorite part of REM was, stating "engineering is mine". He is agreeable to continued stay on the unit. Interval history: Currently he denies SI/HI/AVH/kermit. Is calm during interview, again reassured him he is in a safe environment. VITAL SIGNS: See below. NEW TEST RESULTS: see below. CURRENT MEDICATIONS: See below. MENTAL STATUS EXAMINATION: General Appearance: disheveled, hospital scrubs/clothing, obese, bald with long garcia hair, fair eye-contact Build: overweight Demeanor: calm, cooperative Eye Contact: average Activity: average Behavior: cooperative, relaxed, not smiling Speech: spontaneous, normal rate, loud Mood: euthymic Affect: congruent with mood Thought Process: disorganized Thought Content (Delusions): paranoia, persecutory delusions, magical thinking, denies SI, HI, AVH, Thought Content (Other): Wants to attend court date and does not want to stay in other apartment when asked. Thought Content (Aggressive): none reported Perception (Hallucinations): none reported Perception (Other): does not seem to be responding to internal stimuli, has delusions Cognition (Impairment of): continues to have less impaired attention and concentration Cognition(Intelligence Est.): average Oriented: Awake, Alert Insight: improving Judgment: improving Psychosis: Denies, but appears mildly disorganized DIAGNOSES: 1. Schizophrenia vs Schizoaffective Disorder 2. tobacco use disorder 3. Cluster B and C traits ASSESSMENT: Still requires continued medication/treatment to stabilize his psychosis. Continues to have persecutory delusions and says her was to attend court date for retention, does not want his possessions moved to new property. Continues to have magical thinking and poor sleep despite refusing nighttime medication. 234 mg IM paliperidone due on 07/01/18. Delayed court date related to harm towards cnc maintenance mechanic after discharge, was supposed to be held May 30/2019. Has been attending most groups. Took Im 156 mg paliperidone. Continue Cogentin 1 mg BIDP for possible acute dystonia, continues to tolerate aripiprazole and denies akathisia continue 2.5 mg QAM, increased to 5 mg QPM. Does not appear to be responding to internal stimuli. Denies SI/HI, AVH, kermit. Continue other medications. MANAGEMENT PLAN: see above TIME SPENT: 15 minutes. Vital Signs Vital Signs Date Time Temp Pulse Resp B/P (MAP) Pulse Ox O2 Delivery O2 Flow Rate FiO2 06/11/18 08:08 129/74 06/11/18 08:08 100 06/11/18 07:23 97.5 16 06/10/18 08:45 94 Laboratory Data 24H Labs Laboratory Tests 2 06/10/18 16:39: Bedside Glucose (Misc Panel) 193H 06/11/18 06:11: Bedside Glucose (Misc Panel) 141H Current Medications Current Medications Acetaminophen (Tylenol Tab) 650 mg Q6HP PRN PO HEADACHE or DISCOMFORT Last administered on 05/28/18at 09:34; Start 05/25/18 at 16:30 Al Hydrox/Mg Hydrox/Simethicone (Mylanta) 30 ml Q4HP PRN PO HEARTBURN/INDIGESTION; Start 05/25/18 at 16:30 Amlodipine Besylate (Norvasc) 10 mg DAILY PO Last administered on 06/11/18at 08:08; Start 05/25/18 at 09:00 Aripiprazole (AbiLIFY) 2.5 mg QAM PO Last administered on 06/11/18at 08:08; Start 06/05/18 at 09:00 Aripiprazole (AbiLIFY) 2.5 mg QHS PO Last administered on 06/07/18at 21:45; Start 06/03/18 at 21:00; Stop 06/08/18 at 10:56; Status DC Aripiprazole (AbiLIFY) 5 mg QHS PO Last administered on 06/10/18at 21:42; Start 06/08/18 at 21:00 Atorvastatin Calcium (Lipitor) 10 mg DAILY PO Last administered on 06/11/18 08:08; Start 05/27/18 at 09:00 Benztropine Mesylate (Cogentin) 1 mg BIDP PRN PO EXTRAPYRAMIDAL SIDE EFFECTS; Start 06/08/18 at 15:30 Clonidine HCl (Catapres) 0.1 mg Q8HP PRN PO HYPERTENSION Last administered on 05/26/18at 17:27; Start 05/25/18 at 18:45; Stop 05/27/18 at 13:48; Status DC Diltiazem HCl (Cardizem Cd) 120 mg BID PO Last administered on 05/25/18at 22:09; Start 05/25/18 at 21:00; Stop 05/26/18 at 17:17; Status DC Lisinopril (Prinivil) 10 mg DAILY PO Last administered on 05/27/18at 08:21; Start 05/25/18 at 09:00; Stop 05/27/18 at 13:48; Status DC Lisinopril (Prinivil) 20 mg DAILY PO Last administered on 06/11/18at 08:08; Start 05/28/18 at 09:00 Magnesium Hydroxide (Milk Of Magnesia) 30 ml DAILYPRN PRN PO CONSTIPATION; Start 05/25/18 at 16:30 Metformin HCl (Glucophage) 500 mg BID@08,18 PO Last administered on 06/11/18 08:08; Start 05/26/18 at 18:00 Olanzapine (ZyPREXA ZYDIS) 5 mg Q6HP PRN PO AGITATION; Start 05/25/18 at 16:30 Paliperidone (Invega) 3 mg BID PO Last administered on 06/02/18at 08:28; Start 05/25/18 at 21:00; Stop 06/02/18 at 14:00; Status DC Quetiapine Fumarate (SEROquel) 25 mg DAILY@1600 PO Last administered on 06/02/18at 16:18; Start 06/02/18 at 16:00; Stop 06/03/18 at 10:23; Status DC Quetiapine Fumarate (SEROquel) 25 mg QAM PO ; Start 06/03/18 at 09:00; Stop 06/03/18 at 10:23; Status DC Quetiapine Fumarate (SEROquel) 200 mg QHS PO Last administered on 06/02/18at 21:09; Start 06/02/18 at 21:00; Stop 06/03/18 at 10:23; Status DC Trazodone HCl (Desyrel) 50 mg QHSP PRN PO INSOMNIA Last administered on 06/07/18at 21:45; Start 05/25/18 at 16:30 Allergies Coded Allergies: No Known Allergies (Verified , 06/02/04) DEDRA BENITEZ PGY-1 June 11, 2018 08:34
[2018-06-11] MEDS ORDERED: GLUC500T PO (11:46)
[2018-06-11] MEDS ORDERED: AMLO10TA5 PO (11:46)
[2018-06-11] MEDS ORDERED: TRAZO50TA PO (11:46)
[2018-06-11] MEDS ORDERED: ABIL1TAB11 PO ×2 (11:46)
[2018-06-11] MEDS ORDERED: ATOR1TAB19 PO (11:46)
[2018-06-11] MEDS ORDERED: BENZ-52 PO (11:46)
[2018-06-11] MEDS ORDERED: LISI-538 PO (11:46)
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
[2018-06-11] MEDS ORDERED: INVE234I IM ×2 (17:44)
== END 2018-06-11 14:40 | disposition home or self-care (01) | DRG 750 ==
LOC: M ED 09:33 → M ED INP 16:28 → M PSY 17:12
PROVIDERS: ADMIT Psychiatry & Neurology Psychiatry; ATTEND Psychiatry & Neurology Psychiatry
DX: F20.0 Paranoid schizophrenia (principal); I10 Essential (primary) hypertension; E11.9 Type 2 diabetes mellitus without complications; F12.90 Cannabis use, unspecified, uncomplicated; E78.5 Hyperlipidemia, unspecified; D72.829 Elevated white blood cell count, unspecified; Z79.899 Other long term (current) drug therapy

== ENCOUNTER 2019-03-03 17:06 | Inpatient (IN) | payer MEDICAID ==
[~2019-03-03] VITALS: Ht 185.4 cm; Wt 125.0 kg
[~2019-03-03 17:06] MED LIST changes: +ABIL1TAB11 PO; +ABIL1TAB13 PO; +AMLO10TA5 PO; +ATOR1TAB19 PO; +BENZ-52 PO; +GLUC500T PO; +INVE234I IM; -SIMV20TA2 PO; +SIMV20TA22 PO; +TRAZ1TAB10 PO
[2019-03-03] MEDS ORDERED: HALOPERIDOL 5 MG/ML VIAL (J1630) IM STA (17:37)
[2019-03-03] MEDS ORDERED: diphenhydrAMINE INJ 50MG/ML VIAL (J1200) IM STA (17:37)
[2019-03-03] MEDS ORDERED: KETAMINE INJ 500 MG/5 ML VIAL IM ONE (20:15)
[2019-03-03 21:00] LABS: HEMATOCRIT 42.7 % (42.0-52.0); HEMOGLOBIN 14.8 g/dl (13.5-17.5); MEAN CORPUSCULAR HEMOGLOBIN 29.7 pg (27.0-33.0); MEAN CORPUSCULAR HGB CONC 34.7 g/dl (32.0-36.5); MEAN CORPUSCULAR VOLUME 85.7 fl (80.0-96.0); PLATELET COUNT, AUTOMATED 214 10^3/uL (150-450); RED BLOOD COUNT 4.98 10^6/uL (4.30-6.10); WHITE BLOOD COUNT 10.4 10^3/uL (4.0-10.0)
[2019-03-03] MEDS ORDERED: amLODIPine 10 MG TAB PO ONE (21:00)
[2019-03-03] MEDS ORDERED: LORazepam 2 MG TAB PO ONE (21:00)
[2019-03-03 21:23] LABS: ACETAMINOPHEN LEVEL < 2.0 UG/ML (10.0-30.0); ALBUMIN 3.5 GM/DL (3.2-5.2); ALT/SGPT 30 U/L (12-78); BILIRUBIN,DIRECT < 0.1 MG/DL (0.0-0.2); BILIRUBIN,TOTAL 0.2 MG/DL (0.2-1.0); BLOOD UREA NITROGEN 6 MG/DL (7-18); CALCIUM LEVEL 8.6 MG/DL (8.5-10.1); CARBON DIOXIDE LEVEL 27 MEQ/L (21-32); CHLORIDE LEVEL 109 MEQ/L (98-107); ETHYL ALCOHOL (ETHANOL) < 0.003 % (0.000-0.010); GLOMERULAR FILTRATION RATE > 60.0 (>56); GLUCOSE, FASTING 187 MG/DL (70-100); POTASSIUM SERUM 3.5 MEQ/L (3.5-5.1); SALICYLATE LEVEL 5.4 MG/DL (5.0-30.0); SODIUM LEVEL 141 MEQ/L (136-145); THYROID STIMULATING HORMONE 0.868 uIU/ML (0.358-3.740)
[2019-03-03 21:50] LABS: AMPHETAMINES LEVEL URINE NEGATIVE (NEGATIVE); BARBITURATES URINE NEGATIVE (NEGATIVE); BENZODIAZEPINES URINE NEGATIVE (NEGATIVE); CANNABINOIDS URINE NEGATIVE (NEGATIVE); COCAINE METABOLITE URINE NEGATIVE (NEGATIVE); METHADONE URINE NEGATIVE (NEGATIVE); OPIATES URINE NEGATIVE (NEGATIVE); PHENCYCLIDINE URINE NEGATIVE (NEGATIVE)
[2019-03-04] MEDS ORDERED: LORazepam 1 MG TAB PO ONE (10:00)
[2019-03-04] MEDS ORDERED: METOPROLOL TART 50 MG TAB PO ONE (10:00)
[2019-03-04] MEDS ORDERED: LORazepam 1 MG TAB PO PRN (11:00)
[2019-03-04] MEDS ORDERED: MOM 30ML SUSPENSION UDC PO PRN (11:00)
[2019-03-04] MEDS ORDERED: traZODone 50 MG TAB PO PRN (11:00)
[2019-03-04] MEDS ORDERED: OLANZapine ORAL DISINTEGRATING TAB 5MG PO PRN (11:00)
[2019-03-04] MEDS ORDERED: IBUPROFEN 400 MG TAB PO PRN (11:00)
[2019-03-04] MEDS ORDERED: MAALOX 30 ML SUSP *UDC PO PRN (11:00)
[2019-03-04] MEDS ORDERED: ACETAMINOPHEN TAB 650MG DOSE (2X325MG) PO PRN (11:00)
[2019-03-04] MEDS ORDERED: METOPROLOL TART 50 MG TAB PO SCH (12:00)
[2019-03-04 13:03] VITALS: BP 177/117
--- NOTE | 2019-03-04 16:23 | HPEPDOC ---
[facility] Medical History & Physical Date of Admission Mar 03, 2019 Date of Service: Mar 04, 2019 History and Physical CHIEF COMPLAINT: Consulted by j luis for inpatient management of hypertension. HISTORY OF PRESENT ILLNESS: 53 yo male presents for aggressive behavior, admitted to [facility]. PAST MEDICAL HISTORY: 1. HTN 2. DM ALLERGIES: Please see below. REVIEW OF SYSTEMS: Negative except as per HPI. HOME MEDICATIONS: Please see below. PHYSICAL EXAMINATION: VITAL SIGNS: See below GENERAL APPEARANCE: NAD HEENT: NC/AT, EOMI, PERRL CARDIOVASCULAR: +S1S2, RRR LUNGS: CTA B/L ABDOMEN: obese, soft, NT, +BS LABORATORY DATA: See below. MICROBIOLOGY: Please see below. ASSESSMENT: 53 yo male admitted to [facility] for aggressive behavior, medicine consulted for hypertension. #HTN - started ACEI given history of glucose intolerance/DM #history of DM as per records - check A1C - will also check lipid profile Vital Signs Vital Signs Date Time Temp Pulse Resp B/P (MAP) Pulse Ox O2 Delivery O2 Flow Rate FiO2 03/04/19 14:09 98.0 105 18 177/117 (137) Room Air 03/04/19 13:03 98 Laboratory Data Labs 24H Laboratory Tests 2 03/03/19 20:34: Nucleated Red Blood Cells % (auto) 0.0, Anion Gap 5L, Glomerular Filtration Rate > 60.0, Calcium Level 8.6, Total Bilirubin 0.2, Direct Bilirubin < 0.1, Aspartate Amino Transf (AST/SGOT) 21, Alanine Aminotransferase (ALT/SGPT) 30, Alkaline Phosphatase 97, Total Protein 7.0, Albumin 3.5, Albumin/Globulin Ratio 1.00, Thyroid Stimulating Hormone (TSH) 0.868, Salicylates Level 5.4, Acetaminophen Level < 2.0L, Ethyl Alcohol Level < 0.003 03/03/19 21:08: Urine Opiates Screen NEGATIVE, Urine Methadone Screen NEGATIVE, Urine Barbiturates Screen NEGATIVE, Urine Phencyclidine Screen NEGATIVE, Urine Amphetamines Screen NEGATIVE, Urine Benzodiazepines Screen NEGATIVE, Urine Cocaine Metabolite Screen NEGATIVE, Urine Cannabinoids Screen NEGATIVE CBC/BMP Laboratory Tests 03/03/19 20:34 Home Medications No Active Prescriptions or Reported Meds Allergies Coded Allergies: No Known Allergies (Verified , 06/02/04) RODRIGO STEEN MD Mar 04, 2019 16:23
[2019-03-04] MEDS: lisinopriL 10 MG TAB PO SCH (16:30)
[2019-03-05 07:01] VITALS: BP 139/91
[2019-03-05 07:58] LABS: HEMATOCRIT 44.4 % (42.0-52.0); HEMOGLOBIN 15.2 g/dl (13.5-17.5); MEAN CORPUSCULAR HEMOGLOBIN 29.2 pg (27.0-33.0); MEAN CORPUSCULAR HGB CONC 34.2 g/dl (32.0-36.5); MEAN CORPUSCULAR VOLUME 85.4 fl (80.0-96.0); PLATELET COUNT, AUTOMATED 239 10^3/uL (150-450)
[2019-03-05] MEDS: lisinopriL 10 MG TAB PO SCH (08:14)
[2019-03-05 08:15] LABS: CHOLESTEROL RISK RATIO 5.588 (<5)
[2019-03-05 09:49] LABS: HEMOGLOBIN A1c 7.4 %
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
[2019-03-05] MEDS ORDERED: LORazepam 2 MG TAB PO PRN (12:45)
[2019-03-05 13:00] VITALS: BP 138/91
[2019-03-05] MEDS: FOLIC ACID 1 MG TAB PO SCH (13:10)
[2019-03-05] MEDS: THIAMINE 100 MG TAB PO SCH ×2 (13:10→20:29)
[2019-03-05] MEDS: MULTIVITAMINS/MINERALS THERAP 1 TAB PO SCH (13:10)
[2019-03-05 16:54] VITALS: BP 144/87
[2019-03-05 20:29] VITALS: BP 142/80
[2019-03-05 21:00] VITALS: BP 142/80
[2019-03-06 06:00] VITALS: BP 118/68
[2019-03-06 06:28] VITALS: BP 118/68
[2019-03-06] MEDS: FOLIC ACID 1 MG TAB PO SCH (08:26)
[2019-03-06] MEDS: MULTIVITAMINS/MINERALS THERAP 1 TAB PO SCH (08:26)
[2019-03-06] MEDS: lisinopriL 10 MG TAB PO SCH (08:26)
--- NOTE | 2019-03-06 09:35 | IPNPDOC ---
Text Note Date of Service The patient was seen on 03/06/19. NOTE S: Patient seen and examined at bedside. No medical complaints. O: PHYSICAL EXAMINATION: VITAL SIGNS: See below GENERAL APPEARANCE: NAD HEENT: NC/AT, EOMI, PERRL CARDIOVASCULAR: +S1S2, RRR LUNGS: CTA B/L ABDOMEN: obese, soft, NT, +BS LABORATORY DATA: See below. MICROBIOLOGY: Please see below. ASSESSMENT: 53 yo male admitted to [facility] for aggressive behavior, medicine consulted for hypertension. #HTN - started ACEI given history of glucose intolerance/DM #history of DM as per records - A1C elevated - carb consistent diet - lifestyle modifications - follow up with PCP #DLP VS,Fishbone, I+O VS, Fishbone, I+O Vital Signs Date Time Temp Pulse Resp B/P (MAP) Pulse Ox O2 Delivery O2 Flow Rate FiO2 03/06/19 08:26 133/68 03/06/19 06:28 97.8 99 16 03/04/19 14:09 Room Air 03/04/19 13:03 98 RODRIGO STEEN MD Mar 06, 2019 09:35
[2019-03-06 16:26] VITALS: BP 142/90
--- NOTE | 2019-03-06 18:58 | MHIPN ---
DATE: 03/06/2019 VITAL SIGNS: Blood pressure 118/68, pulse 99, temperature is 97.8. CHIEF COMPLAINT: He says he feels good. SUBJECTIVE: He is seen for followup in the presence of staff. He says he feels good, and that things are no different since coming in, says has generally continued to do well, says sleeps well, appetite is good, hopes to work on crafts once he leaves. MENTAL STATUS EXAMINATION: Neat, cooperative. No agitation. Coherent. Affect is fairly broad. No evidence of any thoughts of harming himself or anyone else at present. No evidence of any delusions elicited at present either and he does not appear to be internally preoccupied. Cognition grossly intact. His judgment is improved, insight fair. ASSESSMENT: 1. Unspecified psychotic disorder. 2. Alcohol use disorder. PLAN: Continue current care, and observations, encourage participation in activities on the unit. Consider reintroducing the idea of his taking medicines, on a scheduled basis.
[2019-03-07 06:18] VITALS: BP 155/98
[2019-03-07] MEDS: MULTIVITAMINS/MINERALS THERAP 1 TAB PO SCH (08:46)
[2019-03-07] MEDS: FOLIC ACID 1 MG TAB PO SCH (08:46)
[2019-03-07] MEDS: lisinopriL 10 MG TAB PO SCH (08:46)
[2019-03-07 16:44] VITALS: BP 150/88
[2019-03-08 06:21] VITALS: BP 145/85
[2019-03-08 08:44] VITALS: BP 145/85
[2019-03-08] MEDS: lisinopriL 10 MG TAB PO SCH (08:44)
[2019-03-08] MEDS: MULTIVITAMINS/MINERALS THERAP 1 TAB PO SCH (08:44)
[2019-03-08] MEDS: FOLIC ACID 1 MG TAB PO SCH (08:44)
--- NOTE | 2019-03-08 09:00 | MHDSPDOC ---
[facility] Discharge Summary Discharge Summary DATE OF ADMISSION: Mar 04, 2019 at 10:47 DATE OF DISCHARGE: 03/08/19 Discharge Keila Christianson MRN: N/A Date of : N/A Date of Service: 03/08/2019 Diagnoses Unspecified psychotic disorder. Alcohol use disorder, severe. Cannabis use disorder, unspecified. History of Present Illness The patient is a 53-year-old man with reported history of psychotic illness, presents to [facility] initially due to some concerning aggressive behavior where he was brought in by his corporate ethics officer. He reportedly had become aggressive with the neighbor after having a delusion that they were somehow in a relationship and had been found with several knives. In the ER he was fairly obstinate and did not interact with the ER, nearly needed to be coded, eventually did decide to take medications. Consultants Involved Hospitalist/PCP screening Treatment and Progress On The Unit The patient was admitted to our inpatient unit under precautions for aggresion. He was observed over the weekend. He had declined any medication as he was not aggressive or bizarre other than some tangential thoughts at times. He was friendly and amenable and thus after discussion, he declined to take any medica tions after discussion. The concern of aggression did not appear during the entirety of his admission. He was pleasant, cooperative, engage with groups and after a weekend of observation we have no grounds hold this individual as he had been not demonstrating any danger to himself or others and did not appear gravely disabled. Discharge Assessment This 53-year-old man with a history of reported psychotic illness who does have symptoms consistent with alcoholic halluninosis improvement. Once he is observed, it was highly likely that he has a full schizophrenia dx as he has very few presentations and a progression of symptoms around his alcohol use. On the day of discharge, he has denied any suicidal/Homicial thoughts, a normal mental status exams and has been observed with no signs or symptoms of aggression, declines vol admission, doesn't meet involuntary criteria at this time. Thus must be discharged in good chayito Mental Status Examination General: Well dressed with good hygiene Speech: Spontaneous and fluid Thought processes: Linear and logical MSK: Smooth and coordinated gait, no signs of tremors or involuntary orofacial movements Thought content: Future orientated Abstract reasoning, and computation: Intact Description of associations: Intact Description of abnormal or psychotic thoughts: Denies any suicidal or homicidal ideation. Denies any auditory or visual hallucinations. Does not appear to be responding to internal stimuli. Does not appear to be endorsing any bizarre or paranoid ideation. Judgment: fair Insight: fair Orientation: Alert and orientated 3 Cognition: Grossly normal Recent and remote memory: Intact Attention span and concentration: Intact Fund of knowledge: Adequate Mood: "okay" Affect: Euthymic with a full range Follow Up The social work team worked during the predischarge meeting in order to evaluate for further issues of lethality address them fully before discharge. They worked on safety planning with the patient's family members in order to ensure that the patient will have a safe and effective discharge. Time Spent The amount of time spent in the coordination of care for this patient was approximately 40 minutes. Friday Vital Signs/I&Os Vital Signs Date Time Temp Pulse Resp B/P (MAP) Pulse Ox O2 Delivery O2 Flow Rate FiO2 03/08/19 08:44 145/85 03/08/19 06:21 97.6 98 16 03/04/19 14:09 Room Air 03/04/19 13:03 98 Medications Scheduled Lisinopril (Lisinopril) 10 Mg Tablet, 10 MG PO DAILY for htn for 7 Days, #7 Allergies Coded Allergies: No Known Allergies (Verified , 06/02/04) SHUKRI CHACON DO Mar 08, 2019 09:00
[2019-03-08] MEDS ORDERED: LISI10TA4 PO (10:26)
--- NOTE | 2019-03-08 18:16 | MHIPN ---
DATE: 03/07/2019 VITAL SIGNS: Blood pressure 150/89, pulse 95, temperature 97.5. CHIEF COMPLAINT: Says is doing okay. SUBJECTIVE: Seen for followup. Indicates has been doing okay, and that he had a good night, has been eating well. He spoke about getting back to doing crafts. MENTAL STATUS EXAMINATION: Neat, cooperative. No agitation, no psychomotor retardation, but he is not as coherent, displays some looseness of associations in his thoughts, affect remains fairly broad. Denies any thoughts of harming himself or anyone else. No delusions are elicited at present, and does not appear to be internally preoccupied. Cognition grossly intact. Judgment and insight are fair at best. ASSESSMENT: 1. Unspecified psychotic disorder. 2. Alcohol use disorder. The possibility of a primary psychotic disorder, such as schizophrenia, given his past history, remains a possibility. PLAN: Continue current care and observations. Encourage participation in activities in the unit. Further recommendations will be made by the inpatient psychiatrist when the patient is seen tomorrow.
== END 2019-03-08 13:30 | disposition home or self-care (01) | DRG 751 ==
LOC: M ED 17:06 → M ED INP 03-04 10:47 → M PSY 03-04 14:05
PROVIDERS: ADMIT Psychiatry & Neurology Addiction Medicine; ATTEND Psychiatry & Neurology Addiction Medicine
DX: F29 Unspecified psychosis not due to a substance or known physiological condition (principal); E11.9 Type 2 diabetes mellitus without complications; I10 Essential (primary) hypertension; F10.10 Alcohol abuse, uncomplicated

== ENCOUNTER 2019-03-11 11:06 | Inpatient (IN) | payer MEDICAID, OTHER ==
[~2019-03-11 11:06] MED LIST changes: +LISI10TA4 PO
[2019-03-11] MEDS ORDERED: NS 1,000 ML IV SCH (11:15)
[2019-03-11 12:49] LABS: BASO # 0.1 10^3/uL (0.0-0.2); BASO % 0.4 % (0.0-1.0); EOS % 0.2 % (0.0-3.0); HEMATOCRIT 45.9 % (42.0-52.0); HEMOGLOBIN 15.1 g/dl (13.5-17.5); LYMPH # 0.9 10^3/uL (1.5-5.0); LYMPH % 5.8 % (24.0-44.0); MEAN CORPUSCULAR HEMOGLOBIN 29.1 pg (27.0-33.0); MEAN CORPUSCULAR HGB CONC 32.9 g/dl (32.0-36.5); MEAN CORPUSCULAR VOLUME 88.4 fl (80.0-96.0); MONO # 0.6 10^3/uL (0.0-0.8); NEUTROPHILS # 14.2 10^3/uL (1.5-8.5); NEUTROPHILS % 88.7 % (36.0-66.0); PLATELET COUNT, AUTOMATED 214 10^3/uL (150-450); RED BLOOD COUNT 5.19 10^6/uL (4.30-6.10)
[2019-03-11] MEDS ORDERED: LISI10TA4 PO (13:05)
[2019-03-11 13:41] LABS: OSMOLALITY SERUM 294 MOSM/KG (275-295)
[2019-03-11 13:45] LABS: ACETAMINOPHEN LEVEL < 2.0 UG/ML (10.0-30.0); ALBUMIN 3.7 GM/DL (3.2-5.2); ALT/SGPT 38 U/L (12-78); BILIRUBIN,DIRECT 0.1 MG/DL (0.0-0.2); BILIRUBIN,TOTAL 0.3 MG/DL (0.2-1.0); BLOOD UREA NITROGEN 12 MG/DL (7-18); CALCIUM LEVEL 8.6 MG/DL (8.5-10.1); CARBON DIOXIDE LEVEL 26 MEQ/L (21-32); CHLORIDE LEVEL 106 MEQ/L (98-107); CK-MB VALUE MASS 2.7 NG/ML (<3.6); CPK CREATINE PHOSPHOKINASE 132 U/L (39-308); CREATININE FOR GFR 1.08 MG/DL (0.70-1.30); ETHYL ALCOHOL (ETHANOL) 0.005 % (0.000-0.010); GLOMERULAR FILTRATION RATE > 60.0 (>56); GLUCOSE, FASTING 185 MG/DL (70-100); MB/CK RELATIVE INDEX 2.05 (< OR =4); POTASSIUM SERUM 3.7 MEQ/L (3.5-5.1); SODIUM LEVEL 139 MEQ/L (136-145); TOTAL PROTEIN 7.1 GM/DL (6.4-8.2); TROPONIN I < 0.02 NG/ML (< 0.10)
[2019-03-11 20:14] LABS: AMPHETAMINES LEVEL URINE NEGATIVE (NEGATIVE); BARBITURATES URINE NEGATIVE (NEGATIVE); BENZODIAZEPINES URINE NEGATIVE (NEGATIVE); CANNABINOIDS URINE NEGATIVE (NEGATIVE); COCAINE METABOLITE URINE NEGATIVE (NEGATIVE); METHADONE URINE NEGATIVE (NEGATIVE); OPIATES URINE NEGATIVE (NEGATIVE); PHENCYCLIDINE URINE NEGATIVE (NEGATIVE)
[2019-03-12] MEDS: MULTIVITAMINS/MINERALS THERAP 1 TAB PO SCH (09:00)
[2019-03-12] MEDS: FOLIC ACID 1 MG TAB PO SCH (09:00)
[2019-03-12] MEDS: THIAMINE 100 MG TAB PO SCH ×2 (09:00→21:00)
--- NOTE | 2019-03-12 11:46 | ED PDOC ---
Provider Note Consult Keila Christianosn MRN: N/A Date of : N/A Date of Service: 03/12/2019 Chief Complaint Consultation for bizarre behavior. History of Present Illness Patient a 53-year-old man recently admitted to our inpatient unit for psychosis and aggression presents after reportedly being found acting unusual in the waiting room of [facility] , when he was to have his AOT evaluation. The patient had recently been admitted to our unit, but had been only mildly tangential at times. The patient is attempted to be met with today after being observed overnight, however, he is bizarre, refuses the interview and makes unusual statements. He has refused any and all interventions. The psychosocial information is taken from my previous assessment and updated as appropriate. Review Of Systems Unable to determine due to patient's mental status. Past Psychiatric History Has a history of a diagnosis of schizophrenia, last in May 2018 been tried on multitude of different medications including Invega and others. Family Psychiatric History The patient denies/is unaware any history of mental health history including addictions and suicide. Social History The patient is a man who lives in a supervised living program in [facility], residing by himself in the apartment program. He is currently disabled, getting SSDI on the 3rd of every month. Has had problems with the law being incarcerated and currently on probation with customer service security officer. The patient identifies as heterosexual. Denies any history of trauma or abuse growing up.Reports significant alcohol use nearly a quart every several weeks of different types of alcohol, last 2 days ago. Reports cannabis use in the past, but none currently. Denies opioids, stimulants and others. Medical History Has a history of hyperlipidemia, hypertension and cardiometabolic comorbidity. Allergies See below Mental Status Examination General: Poor hygiene Speech: Unusual sounds Thought processes: Tangential MSK: Smooth and coordinated gait, no signs of tremors or involuntary orofacial movements Thought content: Unknown Abstract reasoning, and computation: Impaired Description of associations: Impaired Description of abnormal or psychotic thoughts: Unknown Judgment: Impaired Insight: Impaired Orientation: Appears to be alert, responds to interview Cognition: Grossly normal Recent and remote memory: Intact Attention span and concentration: Impaired secondary to thought process Fund of knowledge: Adequate Mood: "You don't recycle enough" Affect: Flat with an irritability Diagnoses Unspecified psychotic disorder. Alcohol use disorder. Cannabis use disorder, unspecified. Assessment and Plan Admit to [facility], unable to complete a safe discharge. Patient is put on a CIWA protocol secondary to history of significant alcohol use. Disposition Admission to inpatient mental health. Time Spent 30 minutes. Friday SHUKRI CHACON DO Mar 12, 2019 11:46
[2019-03-12] MEDS ORDERED: traZODone 50 MG TAB PO PRN (13:00)
[2019-03-12] MEDS ORDERED: IBUPROFEN 400 MG TAB PO PRN (13:00)
[2019-03-12] MEDS ORDERED: OLANZapine ORAL DISINTEGRATING TAB 5MG PO PRN (13:00)
[2019-03-12] MEDS ORDERED: MOM 30ML SUSPENSION UDC PO PRN (13:00)
[2019-03-12] MEDS ORDERED: MAALOX 30 ML SUSP *UDC PO PRN (13:00)
[2019-03-12] MEDS ORDERED: LORazepam 2 MG TAB PO PRN (13:00)
[2019-03-12] MEDS ORDERED: ACETAMINOPHEN TAB 650MG DOSE (2X325MG) PO PRN (13:00)
--- NOTE | 2019-03-12 13:26 | ECGEPIP ---
[facility] - ED Test Date: 2019-03-11 Pat Name: CHAPO CARRANZA Department: Room: - Gender: Male Compliance Nurse: CT : 1965 Requested By: Lucio Bowles Order Number: [id number] Reading MD: Tabitha Horowitz Measurements Intervals [place] Rate: 94 P: 51 LA: 200 QRS: 57 QRSD: 117 T: 53 QT: 396 QTc: 496 Interpretive Statements SINUS RHYTHM POSSIBLE LEFT ATRIAL ENLARGEMENT INCOMPLETE RIGHT BUNDLE BRANCH BLOCK baseline artifact may affect interpretation Prolonged QT interval Electronically Signed on 03-12-2019 13:26:27 EST by Tabitha Horowitz
[2019-03-13] MEDS ORDERED: lisinopriL 10 MG TAB PO SCH (09:00)
[2019-03-13] MEDS: FOLIC ACID 1 MG TAB PO SCH (09:58)
[2019-03-13] MEDS: MULTIVITAMINS/MINERALS THERAP 1 TAB PO SCH (09:58)
[2019-03-13] MEDS: THIAMINE 100 MG TAB PO SCH ×2 (09:58→21:00)
[2019-03-13] MEDS ORDERED: DEXTROSE 50% 50 ML SYRINGE IV PRN (16:15)
[2019-03-13] MEDS ORDERED: GLUCAGON FOR INJ 1 MG VIAL (J1610) SC PRN (16:15)
[2019-03-13] MEDS ORDERED: GLUCOSE 4 GM CHEW TABLET PO PRN (16:15)
--- NOTE | 2019-03-13 16:20 | CR.PDOC ---
General Date of Consultation: Mar 13, 2019 Consultation REASON FOR CONSULTATION/CHIEF COMPLAINT: Physical examination HISTORY OF PRESENT ILLNESS: Patient is 53 years old male with past medical history of type 2 diabetes, hyperlipidemia, hypertension, schizophrenia who was admitted in the hospital with psychosis. Of note patient was not compliant with his medications He denied chest pain, breathing problem, GI problem or dysuria. He denies fever, chills, nausea, vomiting, shortness of breath, palpitations, diarrhea or dysuria ALLERGIES: Please see below. HOME MEDICATIONS: Please see below. PAST MEDICAL HISTORY: Hypertension, hyperlipidemia, diabetes type 2 PAST SURGICAL HISTORY: None FAMILY HISTORY: Father: Did not provide any information Mother: Did not provide any information SOCIAL HISTORY: Marital status and/or living arrangements: Single Tobacco use: Smokes cigars ETOH: Occasional Illicit drug use: Denied IV drug use: Denied PHYSICAL EXAMINATION: VITAL SIGNS: Please see below. GENERAL APPEARANCE: NAD HEENT: PERRLA, EOMI RESPIRATORY: CTA CARDIOVASCULAR: S1-S2 ABDOMEN: Nontender nondistended EXTREMITIES: No swelling NEUROLOGICAL: Cranial nerves from 2-12 intact LABORATORY DATA: Please see below. ASSESSMENT/PLAN: Hypertension During hospital stay his blood pressure was constantly elevated I increased the dose of lisinopril to 40 mg daily Hyperlipidemia Atorvastatin 40 mg daily Type 2 diabetes mellitus I will check HbA1c Diabetes diet Insulin sliding scale Vital Signs/I&O Vital Signs Date Time Temp Pulse Resp B/P (MAP) Pulse Ox O2 Delivery O2 Flow Rate FiO2 03/12/19 17:36 97.9 98 16 140/83 (102) 97 Room Air Allergies Coded Allergies: No Known Allergies (Verified , 06/02/04) Home Medications Scheduled Lisinopril (Lisinopril) 10 Mg Tablet, 10 MG PO DAILY, (Reported) STEVE AGUERO DO Mar 13, 2019 16:20
--- NOTE | 2019-03-13 16:42 | MHHPE ---
DATE OF ADMISSION: 03/12/2019 DATE OF EVALUATION: 03/13/2019 HISTORY OF PRESENT ILLNESS: This 53-year-old man has a history of prior hospitalization. He is admitted for what appears to be possible psychotic and aggressive behavior. Apparently he was at the community clinic and was going to be evaluated for assisted outpatient treatment (AOT) evaluation. They noticed that he was exhibiting a lot of bizarre behavior and sent him to the hospital for admission. He had been recently admitted to the psychiatric unit on 03/04/2019 and at that time he was admitted with similar behavior, including some aggressive behavior where he was brought in by his correctional officer chief and some reported delusions that he was in some relationship with a neighbor and they had found that he had several knives. It seems that according to those records however, the patient refused to take any medications and he ended up being discharged after a few days with a diagnosis of unspecified psychotic disorder, alcohol use disorder, severe, and cannabis use disorder, unspecified. They felt that the patient had not exhibited any aggressive behavior in the unit and they really did not feel that he met the criteria for further commitment to the unit. Today, I am not able to get any information from the patient. In the emergency room and since the admission, staff have not been able to get much information from him at all. PAST PSYCHIATRIC HISTORY: He was hospitalized in May 2018 at [facility] inpatient mental health unit and given a diagnosis of schizophrenia at that point and apparently, according to those records, [facility] was living [facility] ([facility] According to those records, the patient has been on multiple medications, including Seroquel, Geodon, Haldol, and trazodone in the past. He has also been on Invega. All of this past history is obtained through the records. According to the records, at least from May 2018, they state that he had no history of suicidal attempts. MEDICAL HISTORY: Unable to obtain from the patient, but past records states that he has a history of hypertension, obesity and diabetes. FAMILY HISTORY: According to the records of May 2018, apparently the patient reported that his brother had "disappeared," and so it is not clear if he committed suicide or not, but there is no history of any other psychiatric illness in the family or suicides in the family. SUBSTANCE ABUSE: The patient has a negative toxicology, but, according to past records, he has a history of abusing alcohol and cannabis. Records from his recent hospitalization on March 04, 2019 state that the patient reported alcohol use, nearly 1 quart every several weeks of different types of alcohol and that he said that the last time that he had drank was 2 days prior. SOCIAL HISTORY: The patient does live in [facility] ([facility] The patient actually has a correctional officer chief through [facility]. He is in the process of getting an evaluation for an AOT since he is so noncompliant with treatment. ABUSE HISTORY: Unable to obtain. REVIEW OF SYSTEMS: VITAL SIGNS: Blood pressure 140/83, pulse 98, respirations 16. APPEARANCE: He did not appear to be in any apparent distress. NEUROMUSCULAR SYSTEM: The patient's gait is normal and there were no involuntary movements noted. All other systems were reviewed and found to be negative. MENTAL STATUS EXAMINATION: The patient refused to say much to me.not willing to give much information. Therefore, I am not really able to complete mental status examination. DIAGNOSES: 1. Unspecified psychotic disorder. 2. Alcohol use disorder, moderate. 3. Cannabis use disorder, in remission. 4. Rule out schizophrenia. TREATMENT PLAN: At this point, we will continue to try to evaluate the patient further. At this point, he is not really willing to give much information. The patient refuses to take medications, as noted above, which is why they were in the process of trying to obtain an AOT evaluation for this patient. He was seen in consultation by on the day of his admission, 03/12/2019, and he did start him on Clinical [place] Withdrawal Assessment (CIWA) protocol. DEYSI
[2019-03-13] MEDS: HumaLOG INSULIN (NovoLOG) PER UNIT SC SCH ×2 (17:18→21:00)
[2019-03-13 18:42] LABS: CHOLESTEROL LEVEL 159 MG/DL (<200); CHOLESTEROL RISK RATIO 4.968 (<5); HDL CHOLESTEROL 32 MG/DL (>40); LDL CHOLESTEROL 108 MG/DL (<100); NON-HDL-C 127 MG/DL; TRIGLYCERIDES LEVEL 96 MG/DL (<150)
[2019-03-13 18:50] LABS: HEMOGLOBIN A1c 7.4 %
[2019-03-14] MEDS: HumaLOG INSULIN (NovoLOG) PER UNIT SC SCH ×4 (07:17→21:00)
[2019-03-14] MEDS: ATORVASTATIN 20 MG TAB PO SCH (08:16)
[2019-03-14] MEDS: lisinopriL 10 MG TAB PO SCH (08:16)
[2019-03-14] MEDS: MULTIVITAMINS/MINERALS THERAP 1 TAB PO SCH (08:16)
[2019-03-14] MEDS: THIAMINE 100 MG TAB PO SCH ×2 (08:16→21:00)
[2019-03-14] MEDS: FOLIC ACID 1 MG TAB PO SCH (08:16)
--- NOTE | 2019-03-14 14:28 | MHIPN ---
DATE: 03/14/2019 The patient today is laying in his room asleep but he does arouse easily. Basically he seems to make a one word response to my question and the answer does not seem to be related to what I am asking him. MENTAL STATUS EXAM: Unable to complete. DIAGNOSIS: Unspecified psychotic disorder. Alcohol use disorder. Cannabis use disorder, rule out schizophrenia. TREATMENT PLAN: At this point we will continue to monitor the patient for what appears to be acutely psychotic symptoms. The patient is refusing to take any medications.
[2019-03-15 06:46] VITALS: BP 144/92
[2019-03-15] MEDS: HumaLOG INSULIN (NovoLOG) PER UNIT SC SCH ×4 (07:30→21:00)
[2019-03-15 08:03] VITALS: BP 144/92
[2019-03-15] MEDS: ATORVASTATIN 20 MG TAB PO SCH (08:47)
[2019-03-15] MEDS: MULTIVITAMINS/MINERALS THERAP 1 TAB PO SCH (08:47)
[2019-03-15] MEDS: FOLIC ACID 1 MG TAB PO SCH (08:47)
[2019-03-15] MEDS: lisinopriL 10 MG TAB PO SCH (08:47)
--- NOTE | 2019-03-15 10:40 | MHIPNPDOC ---
[facility] Progress Note Progress Note Inpatient Progress Note Keila Christianson MRN: N/A Date of : N/A Date of Service: 03/15/2019 History of Present Illness Patient is a 53-year-old man recently admitted to our inpatient unit for psychosis and aggression presents after reportedly being found acting unusual in the waiting room [facility] , when he was to have his AOT evaluation. The patient had recently been admitted to our unit, but had been only mildly tangential at times. The patient is attempted to be met with today after being observed overnight, however, he is bizarre, refuses the interview and makes unusual statements. He has refused any and all interventions. The psychosocial information is taken from my previous assessment and updated as appropriate. Interval History Psychiatric symptoms today: The patient is attempted to be met with, however he appears quite tangential and is unable to answer my questions. Affective: Unknown. Psychotic: The patient appears tangential and disorganized, although is notably less agitated Anxiety: Unknown. Misc: Sleeping behavior appears normal and eating behavior appears normal Group Attendance: Appears to attend groups frequently. Medication Side effects: See ROS below Behavioral problems/significant events overnight: No significant events reported. Staff Report: The patient appears to be improving without any medications, has had significant tangentiality and psychotic symptoms. Review Of Systems Unable to determine due to mental status. Psychotherapy None on this visit. Vital Signs Reviewed. Mental Status Examination General: Improved hygiene. Speech: Pressured. Thought processes: Tangential MSK: Smooth and coordinated gait, no signs of tremors or involuntary orofacial movements Thought content: Unknown Abstract reasoning, and computation: Impaired Description of associations: Impaired Description of abnormal or psychotic thoughts: Unknown Judgment: Impaired Insight: Impaired Orientation: Appears to be alert, responds to interview Cognition: Grossly normal Recent and remote memory: Intact Attention span and concentration: Impaired secondary to thought process Fund of knowledge: Adequate Mood: "They brought me here." Affect: Flat with an irritability Diagnoses Unspecified psychotic disorder. Alcohol use disorder. Cannabis use disorder, unspecified. Assessment and Plan Admit to [facility], unable to complete a safe discharge. Patient is put on a CIWA protocol secondary to history of significant alcohol use. Unspecified psychotic disorder: We will offer Invega 3 mg nightly, has done well on it in the past, not clear if patient is malingering at this time as a significant secondary gain, especially in avoiding being violated, not wanting to be AOT. Alcohol use disorder: Continue CIWA. Cannabis use disorder: We will recommend outpatient treatment. Disposition Further observation will need to be determined whether the patient's psychosis is related to his presentation or if the patient is trying to demonstrate his symptoms more effectively in order to determine disposition . Time Spent 15 minutes Friday Vital Signs Vital Signs Date Time Temp Pulse Resp B/P (MAP) Pulse Ox O2 Delivery O2 Flow Rate FiO2 03/15/19 08:03 86 144/92 03/15/19 06:46 97.1 18 03/12/19 17:36 97 Room Air Current Medications Current Medications Medications (Trade) Dose Ordered Sig/Harris Route PRN Reason Start Time Stop Time Status Last Admin Dose Admin Acetaminophen (Tylenol Tab) 650 mg Q6HP PRN PO HEADACHE or DISCOMFORT 03/12/19 13:00 Al Hydrox/Mg Hydrox/Simethicone (Mylanta) 30 ml Q4HP PRN PO HEARTBURN/INDIGESTION 03/12/19 13:00 Atorvastatin Calcium (Lipitor) 40 mg DAILY PO 03/14/19 09:00 Dextrose (Dextrose 50%) 25 ml ASDIRECTED PRN IV SEE LABEL COMMENTS 03/13/19 16:15 Folic Acid (Folic Acid) 1 mg DAILY PO 03/12/19 09:00 Glucagon (Glucagon) 1 mg ASDIRECTED PRN SC SEE LABEL COMMENTS 03/13/19 16:15 Glucose (Glucose) 16 GM ASDIRECTED PRN PO SEE LABEL COMMENTS 03/13/19 16:15 Home Med (Med Rec Complete!) ASDIRECTED XX 03/11/19 13:15 03/11/19 13:07 DC Ibuprofen (Advil) 400 mg Q6HP PRN PO PAIN 03/12/19 13:00 Insulin Human Lispro (HumaLOG INSULIN) SEE PROTOCOL TABLE AC SC 03/13/19 17:30 Insulin Human Lispro (HumaLOG INSULIN) SEE PROTOCOL TABLE QHS SC 03/13/19 21:00 Lisinopril (Prinivil) 10 mg DAILY PO 03/13/19 09:00 03/13/19 16:15 DC Lisinopril (Prinivil) 40 mg DAILY PO 03/14/19 09:00 Lorazepam (Ativan) 2 mg ASDIRECTED PRN PO SEE PROTOCOL 03/12/19 13:00 Magnesium Hydroxide (Milk Of Magnesia) 30 ml DAILYPRN PRN PO CONSTIPATION 03/12/19 13:00 Multivitamins (Theragram-M) 1 tab DAILY PO 03/12/19 09:00 Olanzapine (ZyPREXA ZYDIS) 5 mg Q4HP PRN PO AGITATION 03/12/19 13:00 Sodium Chloride 1,000 ml @ 100 mls/hr Q10H IV 03/11/19 11:15 03/11/19 12:15 DC Thiamine HCl (Thiamine HCl) 100 mg BID PO 03/12/19 09:00 03/14/19 21:01 DC Trazodone HCl (Desyrel) 50 mg QHSP PRN PO INSOMNIA 03/12/19 13:00 Allergies Coded Allergies: No Known Allergies (Verified , 06/02/04) SHUKRI CHACON DO Mar 15, 2019 10:40
[2019-03-15 16:00] VITALS: BP 146/94
[2019-03-15] MEDS: PALIPERIDONE 3 MG ER TAB (INVEGA) PO SCH (21:00)
[2019-03-16 06:11] VITALS: BP 142/90
[2019-03-16] MEDS: HumaLOG INSULIN (NovoLOG) PER UNIT SC SCH ×4 (06:30→20:39)
[2019-03-16] MEDS: ATORVASTATIN 20 MG TAB PO SCH (08:35)
[2019-03-16] MEDS: FOLIC ACID 1 MG TAB PO SCH (08:35)
[2019-03-16] MEDS: lisinopriL 10 MG TAB PO SCH (08:35)
[2019-03-16] MEDS: MULTIVITAMINS/MINERALS THERAP 1 TAB PO SCH (08:36)
--- NOTE | 2019-03-16 12:13 | MHIPNPDOC ---
[facility] Progress Note Progress Note Inpatient Progress Note Keila Christianson MRN: N/A Date of : N/A Date of Service: 03/16/2019 History of Present Illness Patient is a 53-year-old man recently admitted to our inpatient unit for psychosis and aggression presents after reportedly being found acting unusual in the waiting room of [facility] , when he was to have his AOT evaluation. The patient had recently been admitted to our unit, but had been only mildly tangential at times. The patient is attempted to be met with today after being observed overnight, however, he is bizarre, refuses the interview and makes unusual statements. He has refused any and all interventions. The psychosocial information is taken from my previous assessment and updated as appropriate. Interval History Psychiatric symptoms today: The patient is met with. He describes that he had been attempting to avoid his AOT evaluation and thus the reason for consultation. He is notably less tangential. Affective: The patient does not endorse any depressive symptoms. Psychotic: The patient is less disorganized, more focused, and has had no agitation. Anxiety: None reported. Misc: Sleeping behavior appears normal and eating behavior appears normal Group Attendance: Appears to attend groups frequently. Medication Side effects: See ROS below Behavioral problems/significant events overnight: No significant events reported. Staff Report: The patient appears to be improving without any medications, has had significant tangentiality and psychotic symptoms. Review Of Systems Denies any major physical problem. Psychotherapy None on this visit. Vital Signs Reviewed. Mental Status Examination General: Fair hygiene. Speech: Improved. Thought processes: Improved. MSK: Smooth and coordinated gait, no signs of tremors or involuntary orofacial movements Thought content: Some bizarreness. Abstract reasoning, and computation: Improved. Description of associations: Improved. Description of abnormal or psychotic thoughts: Denies suicidal or homicidal ideations. Denies auditory or visual hallucinations. Judgment: Improved. Insight: Improved. Orientation: Appears to be alert, responds to interview Cognition: Grossly normal Recent and remote memory: Intact Attention span and concentration: Improved. Fund of knowledge: Adequate Mood: "Fine." Affect: More euthymic. Diagnoses Unspecified psychotic disorder. Alcohol use disorder. Cannabis use disorder, unspecified. Assessment and Plan Admit to [facility], unable to complete a safe discharge. Patient is put on a CIWA protocol secondary to history of significant alcohol use. Unspecified psychotic disorder: Continue to offer Invega 3 mg nightly. We will start to triage patient into outpatient as he has returned to his baseline. He will have to answer to probation first of which they will discuss with him his need to get treated or else he could be violated prior to discharge. Alcohol use disorder: Continue CIWA. Cannabis use disorder: We will recommend outpatient treatment. Disposition Patient will be further stabilized and triaged into treatment outpatient. He will require a meeting with TLS before transfer. Time Spent 15 minutes Friday Vital Signs Vital Signs Date Time Temp Pulse Resp B/P (MAP) Pulse Ox O2 Delivery O2 Flow Rate FiO2 03/16/19 08:35 146/90 03/16/19 06:11 98.0 85 16 03/12/19 17:36 97 Room Air Laboratory Data 24H Labs Laboratory Tests 2 03/15/19 17:33: Bedside Glucose (Misc Panel) 171H 03/16/19 12:03: Bedside Glucose (Misc Panel) 157H Current Medications Current Medications Medications (Trade) Dose Ordered Sig/Harris Route PRN Reason Start Time Stop Time Status Last Admin Dose Admin Acetaminophen (Tylenol Tab) 650 mg Q6HP PRN PO HEADACHE or DISCOMFORT 03/12/19 13:00 Al Hydrox/Mg Hydrox/Simethicone (Mylanta) 30 ml Q4HP PRN PO HEARTBURN/INDIGESTION 03/12/19 13:00 Atorvastatin Calcium (Lipitor) 40 mg DAILY PO 03/14/19 09:00 03/16/19 08:35 Dextrose (Dextrose 50%) 25 ml ASDIRECTED PRN IV SEE LABEL COMMENTS 03/13/19 16:15 Folic Acid (Folic Acid) 1 mg DAILY PO 03/12/19 09:00 03/16/19 08:35 Glucagon (Glucagon) 1 mg ASDIRECTED PRN SC SEE LABEL COMMENTS 03/13/19 16:15 Glucose (Glucose) 16 GM ASDIRECTED PRN PO SEE LABEL COMMENTS 03/13/19 16:15 Home Med (Med Rec Complete!) ASDIRECTED XX 03/11/19 13:15 03/11/19 13:07 DC Ibuprofen (Advil) 400 mg Q6HP PRN PO PAIN 03/12/19 13:00 Insulin Human Lispro (HumaLOG INSULIN) SEE PROTOCOL TABLE AC SC 03/13/19 17:30 Insulin Human Lispro (HumaLOG INSULIN) SEE PROTOCOL TABLE QHS SC 03/13/19 21:00 Lisinopril (Prinivil) 10 mg DAILY PO 03/13/19 09:00 03/13/19 16:15 DC Lisinopril (Prinivil) 40 mg DAILY PO 03/14/19 09:00 03/16/19 08:35 Lorazepam (Ativan) 2 mg ASDIRECTED PRN PO SEE PROTOCOL 03/12/19 13:00 Cancel Magnesium Hydroxide (Milk Of Magnesia) 30 ml DAILYPRN PRN PO CONSTIPATION 03/12/19 13:00 Multivitamins (Theragram-M) 1 tab DAILY PO 03/12/19 09:00 03/16/19 08:36 Olanzapine (ZyPREXA ZYDIS) 5 mg Q4HP PRN PO AGITATION 03/12/19 13:00 Paliperidone (Invega) 3 mg QHS PO 03/15/19 21:00 Sodium Chloride 1,000 ml @ 100 mls/hr Q10H IV 03/11/19 11:15 03/11/19 12:15 DC Thiamine HCl (Thiamine HCl) 100 mg BID PO 03/12/19 09:00 03/14/19 21:01 DC Trazodone HCl (Desyrel) 50 mg QHSP PRN PO INSOMNIA 03/12/19 13:00 Allergies Coded Allergies: No Known Allergies (Verified , 06/02/04) SHUKRI CHACON DO Mar 16, 2019 12:13
[2019-03-16 16:03] VITALS: BP 134/88
[2019-03-16] MEDS: PALIPERIDONE 3 MG ER TAB (INVEGA) PO SCH (20:39)
[2019-03-17] MEDS: HumaLOG INSULIN (NovoLOG) PER UNIT SC SCH ×4 (06:51→20:25)
[2019-03-17 07:19] VITALS: BP 142/89
[2019-03-17 08:44] VITALS: BP 146/90
[2019-03-17] MEDS: MULTIVITAMINS/MINERALS THERAP 1 TAB PO SCH (08:44)
[2019-03-17] MEDS: lisinopriL 10 MG TAB PO SCH (08:44)
[2019-03-17] MEDS: FOLIC ACID 1 MG TAB PO SCH (08:44)
[2019-03-17] MEDS: ATORVASTATIN 20 MG TAB PO SCH (08:45)
--- NOTE | 2019-03-17 11:47 | MHIPNPDOC ---
[facility] [place] Progress Note Progress Note Inpatient Progress Note Keila Christianson MRN: N/A Date of : N/A Date of Service: 03/17/2019 History of Present Illness Patient is a 53-year-old man recently admitted to our inpatient unit for psychosis and aggression presents after reportedly being found acting unusual in the waiting room of [facility] , when he was to have his AOT evaluation. The patient had recently been admitted to our unit, but had been only mildly tangential at times. The patient is attempted to be met with today after being observed overnight, however, he is bizarre, refuses the interview and makes unusual statements. He has refused any and all interventions. The psychosocial information is taken from my previous assessment and updated as appropriate. Interval History Psychiatric symptoms today: The patient is met with today, he is more cogent. Discussed with him at length with inventory control planner about the concerns of him violating his probation order. Patient was given a copy of it and given information leaning to it. Affective: The patient does not endorse any depressive symptoms. Psychotic: The patient is baseline disorganize at this time for himself. No agitation, since staff reports the patient has been amenable more or less friendly. Anxiety: None reported. Misc: Sleeping behavior appears normal and eating behavior appears normal Group Attendance: Appears to attend groups frequently. Medication Side effects: See ROS below Behavioral problems/significant events overnight: No significant events reported. Staff Report: The patient appears to be improving without any medications, has had significant tangentiality and psychotic symptoms. Review Of Systems Reports no problems today. Psychotherapy None on this visit. Vital Signs Reviewed. Mental Status Examination General: Fair hygiene. Speech: Fluid. Thought processes: Circumstantial at times, but barely redirectable. MSK: Smooth and coordinated gait, no signs of tremors or involuntary orofacial movements Thought content: Mild bizarreness at baseline. Abstract reasoning, and computation: At baseline. Description of associations: At baseline. Description of abnormal or psychotic thoughts: Denies suicidal or homicidal ideations. Denies auditory or visual hallucinations. Judgment: Baseline. Insight: Baseline. Orientation: Appears to be alert, responds to interview Cognition: Grossly normal Recent and remote memory: Intact Attention span and concentration: Improved. Fund of knowledge: Adequate Mood: "Fine." Affect: Euthymic. Diagnoses Unspecified psychotic disorder. Alcohol use disorder. Cannabis use disorder, unspecified. Assessment and Plan Unspecified psychotic disorder: We ill offer Invega tonight, discharge tomorrow if patient continues to want to leave. Discussed with him the issues relating to his probation. Alcohol use disorder: Continue CIWA. Cannabis use disorder: We will recommend outpatient treatment. Disposition Discharge tomorrow. Time Spent 15 minutes. Friday Vital Signs Vital Signs Date Time Temp Pulse Resp B/P (MAP) Pulse Ox O2 Delivery O2 Flow Rate FiO2 03/17/19 08:44 146/90 03/17/19 07:19 97.2 86 18 Room Air 03/12/19 17:36 97 Laboratory Data 24H Labs Laboratory Tests 2 03/16/19 12:03: Bedside Glucose (Misc Panel) 157H 03/16/19 17:16: Bedside Glucose (Misc Panel) 205H 03/17/19 11:24: Bedside Glucose (Misc Panel) 188H Current Medications Current Medications Medications (Trade) Dose Ordered Sig/Harris Route PRN Reason Start Time Stop Time Status Last Admin Dose Admin Acetaminophen (Tylenol Tab) 650 mg Q6HP PRN PO HEADACHE or DISCOMFORT 03/12/19 13:00 Al Hydrox/Mg Hydrox/Simethicone (Mylanta) 30 ml Q4HP PRN PO HEARTBURN/INDIGESTION 03/12/19 13:00 Atorvastatin Calcium (Lipitor) 40 mg DAILY PO 03/14/19 09:00 03/17/19 08:45 Dextrose (Dextrose 50%) 25 ml ASDIRECTED PRN IV SEE LABEL COMMENTS 03/13/19 16:15 Folic Acid (Folic Acid) 1 mg DAILY PO 03/12/19 09:00 03/17/19 08:44 Glucagon (Glucagon) 1 mg ASDIRECTED PRN SC SEE LABEL COMMENTS 03/13/19 16:15 Glucose (Glucose) 16 GM ASDIRECTED PRN PO SEE LABEL COMMENTS 03/13/19 16:15 Home Med (Med Rec Complete!) ASDIRECTED XX 03/11/19 13:15 03/11/19 13:07 DC Ibuprofen (Advil) 400 mg Q6HP PRN PO PAIN 03/12/19 13:00 Insulin Human Lispro (HumaLOG INSULIN) SEE PROTOCOL TABLE AC SC 03/13/19 17:30 Insulin Human Lispro (HumaLOG INSULIN) SEE PROTOCOL TABLE QHS SC 03/13/19 21:00 Lisinopril (Prinivil) 10 mg DAILY PO 03/13/19 09:00 03/13/19 16:15 DC Lisinopril (Prinivil) 40 mg DAILY PO 03/14/19 09:00 03/17/19 08:44 Lorazepam (Ativan) 2 mg ASDIRECTED PRN PO SEE PROTOCOL 03/12/19 13:00 Cancel Magnesium Hydroxide (Milk Of Magnesia) 30 ml DAILYPRN PRN PO CONSTIPATION 03/12/19 13:00 Multivitamins (Theragram-M) 1 tab DAILY PO 03/12/19 09:00 03/17/19 08:44 Olanzapine (ZyPREXA ZYDIS) 5 mg Q4HP PRN PO AGITATION 03/12/19 13:00 Paliperidone (Invega) 3 mg QHS PO 03/15/19 21:00 Sodium Chloride 1,000 ml @ 100 mls/hr Q10H IV 03/11/19 11:15 03/11/19 12:15 DC Thiamine HCl (Thiamine HCl) 100 mg BID PO 03/12/19 09:00 03/14/19 21:01 DC Trazodone HCl (Desyrel) 50 mg QHSP PRN PO INSOMNIA 03/12/19 13:00 Allergies Coded Allergies: No Known Allergies (Verified , 06/02/04) SHUKRI CHACON DO Mar 17, 2019 11:47
[2019-03-17 16:26] VITALS: BP 144/89
[2019-03-17] MEDS: PALIPERIDONE 3 MG ER TAB (INVEGA) PO SCH (20:25)
[2019-03-18] MEDS: HumaLOG INSULIN (NovoLOG) PER UNIT SC SCH ×2 (07:30→11:39)
[2019-03-18] MEDS: ATORVASTATIN 20 MG TAB PO SCH (10:30)
[2019-03-18] MEDS: lisinopriL 10 MG TAB PO SCH (10:30)
[2019-03-18] MEDS: MULTIVITAMINS/MINERALS THERAP 1 TAB PO SCH (10:30)
[2019-03-18] MEDS: FOLIC ACID 1 MG TAB PO SCH (10:30)
--- NOTE | 2019-03-18 10:51 | MHDSPDOC ---
[facility] Discharge Summary Discharge Summary DATE OF ADMISSION: Mar 12, 2019 at 15:23 DATE OF DISCHARGE: 03/18/19 Discharge Keila Christianson MRN: N/A Date of : N/A Date of Service: 03/18/2019 Diagnoses Unspecified psychotic disorder. Alcohol use disorder. Cannabis use disorder, unspecified. Malingering History of Present Illness Patient is a 53-year-old man recently admitted to our inpatient unit for psychosis and aggression presents after reportedly being found acting unusual in the waiting room of [facility] , when he was to have his AOT evaluation. The patient had recently been admitted to our unit, but had been only mildly tangential at times. The patient is attempted to be met with today after being observed overnight, however, he is bizarre, refuses the interview and makes unusual statements. He has refused any and all interventions. The psychosocial information is taken from my previous assessment and updated as appropriate. Consultants Involved Hospitalist/PCP screening Treatment and Progress On The Unit The patient was admitted to the inpatient unit where he initially refused to speak; however, there were concerns of behavioral issues primarily of him avoiding his AOT evaluation. After he was observed, he taking no medications, he spontaneously resolved after confronting him about this. He tempting to be admitted in order to avoid being violate on probation due to not wanting to take medications. He was offered medications and his chief science officer sent us information as to his conditions of patient warning him that if he did not take recommended medications he could be violating probation. The patient declined medications and had returned to his baseline mental status with no significant problems on the unit, no agitation episodes and otherwise had been doing well. Discharge Assessment 53-year-old man who presents with psychotic symptoms that appear to be at baseline after observation, admitted in order to avoid being violated on his probation as they were forced him to have an AOT evaluation that would mandate him to outpatient. On the day of discharge he is denying any suicidal or homicidal ideation. He has returned to his baseline mental status, judgment and insight. Has had no significant agitation episodes on the unit. Has been in behavioral control and declines further voluntary admission and thus must be discharged in good chayito as he does not meet involuntary criteria in my opinion. Mental Status Examination General: Fair hygiene. Speech: Fluid. Thought processes: Circumstantial at times, but barely redirectable. MSK: Smooth and coordinated gait, no signs of tremors or involuntary orofacial movements Thought content: Mild bizarreness at baseline. Abstract reasoning, and computation: At baseline. Description of associations: At baseline. Description of abnormal or psychotic thoughts: Denies suicidal or homicidal vincenzo ations. Denies auditory or visual hallucinations. Judgment: Baseline. Insight: Baseline. Orientation: Appears to be alert, responds to interview Cognition: Grossly normal Recent and remote memory: Intact Attention span and concentration: Improved. Fund of knowledge: Adequate Mood: "Fine." Affect: Euthymic. Follow Up The social work team worked during the predischarge meeting in order to evaluate for further issues of lethality address them fully before discharge. They worked on safety planning with the patient's family members in order to ensure that the patient will have a safe and effective discharge. Time Spent The amount of time spent in the coordination of care for this patient was approximately 40 minutes. Vital Signs/I&Os Vital Signs Date Time Temp Pulse Resp B/P (MAP) Pulse Ox O2 Delivery O2 Flow Rate FiO2 03/17/19 16:26 98.6 88 18 144/89 (107) 03/17/19 12:21 Room Air 03/12/19 17:36 97 Laboratory Data Labs 24H Laboratory Tests 2 03/17/19 11:24: Bedside Glucose (Misc Panel) 188H 03/17/19 17:04: Bedside Glucose (Misc Panel) 153H Medications Scheduled Lisinopril (Lisinopril) 10 Mg Tablet, 10 MG PO DAILY, (Reported) Allergies Coded Allergies: No Known Allergies (Verified , 06/02/04) SHUKRI CHACON DO Mar 18, 2019 10:51
== END 2019-03-18 12:45 | disposition home or self-care (01) | DRG 751 ==
LOC: M ED 11:06 → EDBD 11:06 → M ED INP 03-12 15:23 → M PSY 03-12 17:44
PROVIDERS: ADMIT Psychiatry & Neurology Addiction Medicine; ATTEND Psychiatry & Neurology Addiction Medicine
DX: F29 Unspecified psychosis not due to a substance or known physiological condition (principal); E11.9 Type 2 diabetes mellitus without complications; I10 Essential (primary) hypertension; F10.10 Alcohol abuse, uncomplicated; F12.90 Cannabis use, unspecified, uncomplicated; Z76.5 Malingerer [conscious simulation]; E78.5 Hyperlipidemia, unspecified; F17.200 Nicotine dependence, unspecified, uncomplicated; Z79.899 Other long term (current) drug therapy

== ENCOUNTER → 2020-01-17 | Outpatient (REF) | payer OTHER ==
[~2020-01-17] MED LIST changes: -AMLO10TA5 PO; +AMLO1TAB25 PO
== END ==
LOC: M LAB REF 15:43
PROVIDERS: ATTEND Surgery
DX: U07.1 COVID-19 (principal)

== ENCOUNTER 2022-03-02 08:48 | Emergency (ER) | payer OTHER ==
[~2022-03-02] VITALS: Ht 185.4 cm; Wt 118.1 kg
[~2022-03-02 08:48] MED LIST changes: -LISI-538 PO; +LISI10TA22 PO; -LISI10TA4 PO; +LISI20TA33 PO
[2022-03-02] MEDS ORDERED: BACITRACIN OINTMENT 30GM TUBE TOP ONE (11:20)
[2022-03-02 12:15] LABS: BASO # 0.1 10^3/uL (0.0-0.2); BASO % 0.7 % (0.0-1.0); EOS # 0.1 10^3/uL (0.0-0.5); EOS % 1.2 % (0.0-3.0); HEMATOCRIT 34.5 % (42.0-52.0); HEMOGLOBIN 11.7 g/dl (13.5-17.5); LYMPH # 1.4 10^3/uL (1.5-5.0); LYMPH % 12.3 % (24.0-44.0); MEAN CORPUSCULAR HEMOGLOBIN 30.5 pg (27.0-33.0); MEAN CORPUSCULAR HGB CONC 33.9 g/dl (32.0-36.5); MEAN CORPUSCULAR VOLUME 89.8 fl (80.0-96.0); MONO # 0.9 10^3/uL (0.0-0.8); MONO % 8.2 % (2.0-8.0); NEUTROPHILS # 8.7 10^3/uL (1.5-8.5); NEUTROPHILS % 77.2 % (36.0-66.0); PLATELET COUNT, AUTOMATED 193 10^3/uL (150-450); RED BLOOD COUNT 3.84 10^6/uL (4.30-6.10); WHITE BLOOD COUNT 11.3 10^3/uL (4.0-10.0)
[2022-03-02 12:29] LABS: BLOOD UREA NITROGEN 23 MG/DL (9-23); CALCIUM LEVEL 8.7 MG/DL (8.5-10.1); CARBON DIOXIDE LEVEL 28 MMOL/L (20-31); CHLORIDE LEVEL 104 MMOL/L (98-107); GLOMERULAR FILTRATION RATE > 60.0 (>56); GLUCOSE, FASTING 102 MG/DL (60-100); POTASSIUM SERUM 3.5 MMOL/L (3.5-5.1); SODIUM LEVEL 140 MMOL/L (136-145)
[2022-03-02] MEDS ORDERED: CEPHALEXIN 500 MG CAP PO ONE (13:15)
[2022-03-02] MEDS ORDERED: CEPH500C PO (13:15)
[2022-03-02 13:48] VITALS: BP 140/74
== END 2022-03-02 13:49 | disposition home or self-care (01) ==
LOC: M ED 08:48
DX: S90.821A Blister (nonthermal), right foot, initial encounter (principal); S90.822A Blister (nonthermal), left foot, initial encounter; D72.829 Elevated white blood cell count, unspecified; F17.200 Nicotine dependence, unspecified, uncomplicated

== ENCOUNTER 2022-03-16 13:32 | Inpatient (IN) | payer MEDICAID, OTHER ==
[~2022-03-16] VITALS: Ht 185.4 cm; Wt 108.9 kg
[~2022-03-16 13:32] MED LIST changes: -BENZ-52 PO; +BENZ1TAB5 PO; +CEPH500C PO
[2022-03-16 16:15] LABS: HEMATOCRIT 36.3 % (42.0-52.0); HEMOGLOBIN 12.4 g/dl (13.5-17.5); MEAN CORPUSCULAR HEMOGLOBIN 30.3 pg (27.0-33.0); MEAN CORPUSCULAR HGB CONC 34.2 g/dl (32.0-36.5); MEAN CORPUSCULAR VOLUME 88.8 fl (80.0-96.0); PLATELET COUNT, AUTOMATED 207 10^3/uL (150-450); RED BLOOD COUNT 4.09 10^6/uL (4.30-6.10); WHITE BLOOD COUNT 15.2 10^3/uL (4.0-10.0)
[2022-03-16 16:48] LABS: ETHYL ALCOHOL (ETHANOL) 0.004 % (0.000-0.010)
[2022-03-16 16:49] LABS: ACETAMINOPHEN LEVEL < 2.0 UG/ML (10.0-20.0); ALBUMIN 3.9 G/DL (3.2-5.2); ALKALINE PHOSPHATASE 84 U/L (46-116); ALT/SGPT 23 U/L (7.0-40); AST/SGOT 59 U/L (<34); BILIRUBIN,DIRECT 0.3 MG/DL (<0.4); BILIRUBIN,TOTAL 0.8 MG/DL (0.3-1.2); BLOOD UREA NITROGEN 47 MG/DL (9-23); CALCIUM LEVEL 9.3 MG/DL (8.5-10.1); CARBON DIOXIDE LEVEL 21 MMOL/L (20-31); CHLORIDE LEVEL 102 MMOL/L (98-107); CREATININE FOR GFR 2.76 MG/DL (0.70-1.30); GLOMERULAR FILTRATION RATE 25.5 (>56); GLUCOSE, FASTING 172 MG/DL (60-100); POTASSIUM SERUM 3.1 MMOL/L (3.5-5.1); SALICYLATE LEVEL < 3.0 MG/DL (<30); SODIUM LEVEL 137 MMOL/L (136-145); TOTAL PROTEIN 6.9 G/DL (5.7-8.2)
[2022-03-16 16:51] LABS: THYROID STIMULATING HORMONE 1.768 uIU/ML (0.55-4.78)
[2022-03-16] MEDS ORDERED: NS 3,270 ML in IV 1 EA IV ONE (17:05)
[2022-03-16 18:12] LABS: CPK CREATINE PHOSPHOKINASE 987 U/L (46-171)
[2022-03-16 19:57] LABS: APPEARANCE, URINE MANUAL CLEAR (CLEAR); COLOR, URINE MANUAL DK YELLOW (YELLOW)
[2022-03-16 19:58] LABS: BILIRUBIN, URINE MANUAL NEGATIVE (NEGATIVE); BLOOD URINE MANUAL POSITIVE (NEGATIVE); GLUCOSE, URINE (UA) MANUAL 1+(100 MG/DL) mg/dL (NEGATIVE); KETONE, URINE MANUAL 1+ mg/dL (NEGATIVE); LEUKOCYTE ESTERASE, URINE MAN TRACE (NEGATIVE); NITRITE, URINE MANUAL NEGATIVE (NEGATIVE); PROTEIN, URINE MANUAL 1+ mg/dL (NEGATIVE); UROBILINOGEN, URINE MANUAL NORMAL (NORMAL)
[2022-03-16 20:11] LABS: RBC, URINE TNTC /hpf (0-3)
[2022-03-16 20:12] LABS: SQUAMOUS EPITHELIAL CELL URINE SMALL AMOUNT /hpf (SMALL AMT)
[2022-03-16 20:17] LABS: BACTERIA, URINE LARGE AMOUNT
[2022-03-16 20:30] LABS: AMPHETAMINES LEVEL URINE NEGATIVE (NEGATIVE); BARBITURATES URINE NEGATIVE (NEGATIVE); BENZODIAZEPINES URINE NEGATIVE (NEGATIVE); CANNABINOIDS URINE NEGATIVE (NEGATIVE); COCAINE METABOLITE URINE NEGATIVE (NEGATIVE); METHADONE URINE NEGATIVE (NEGATIVE); OPIATES URINE NEGATIVE (NEGATIVE); PHENCYCLIDINE URINE NEGATIVE (NEGATIVE)
[2022-03-16] MEDS ORDERED: HOME MED LIST COMPLETE! XX SCH (20:40)
[2022-03-16 22:59] LABS: CALCIUM LEVEL 8.2 MG/DL (8.5-10.1); CREATININE FOR GFR 2.37 MG/DL (0.70-1.30); GLOMERULAR FILTRATION RATE 30.4 (>56); POTASSIUM SERUM 3.1 MMOL/L (3.5-5.1)
[2022-03-16] MEDS ORDERED: POTASSIUM CHLORIDE 10MEQ SR TABLET PO ONE (23:20)
[2022-03-16] MEDS: NS 1,000 ML IV SCH (23:22)
[2022-03-17] MEDS: NS 1,000 ML IV SCH ×3 (05:16→19:20)
[2022-03-17 09:02] LABS: CALCIUM LEVEL 8.1 MG/DL (8.5-10.1); CREATININE FOR GFR 1.57 MG/DL (0.70-1.30); GLOMERULAR FILTRATION RATE 48.9 (>56); POTASSIUM SERUM 3.1 MMOL/L (3.5-5.1)
[2022-03-17] MEDS ORDERED: KCL 10MEQ/100ML SWI (KRUN) 10 MEQ in IV 1 EA IV ONE (09:20)
[2022-03-17 16:39] LABS: BLOOD UREA NITROGEN 29 MG/DL (9-23); CARBON DIOXIDE LEVEL 23 MMOL/L (20-31); CHLORIDE LEVEL 109 MMOL/L (98-107); GLOMERULAR FILTRATION RATE > 60.0 (>56); GLUCOSE, FASTING 105 MG/DL (60-100); POTASSIUM SERUM 3.6 MMOL/L (3.5-5.1); SODIUM LEVEL 140 MMOL/L (136-145)
[2022-03-18] MEDS: NS 1,000 ML IV SCH (00:41)
[2022-03-18 09:10] LABS: BLOOD UREA NITROGEN 19 MG/DL (9-23); CALCIUM LEVEL 8.4 MG/DL (8.5-10.1); CARBON DIOXIDE LEVEL 25 MMOL/L (20-31); CHLORIDE LEVEL 108 MMOL/L (98-107); CREATININE FOR GFR 0.99 MG/DL (0.70-1.30); GLOMERULAR FILTRATION RATE > 60.0 (>56); GLUCOSE, FASTING 92 MG/DL (60-100); POTASSIUM SERUM 3.3 MMOL/L (3.5-5.1); SODIUM LEVEL 141 MMOL/L (136-145)
[2022-03-18 21:32] LABS: BASO # 0.1 10^3/uL (0.0-0.2); EOS # 0.2 10^3/uL (0.0-0.5); EOS % 2.2 % (0.0-3.0); HEMOGLOBIN 11.6 g/dl (13.5-17.5); LYMPH # 1.4 10^3/uL (1.5-5.0); LYMPH % 21.6 % (24.0-44.0); MEAN CORPUSCULAR HEMOGLOBIN 30.4 pg (27.0-33.0); MEAN CORPUSCULAR HGB CONC 34.1 g/dl (32.0-36.5); MEAN CORPUSCULAR VOLUME 89.2 fl (80.0-96.0); MONO # 0.6 10^3/uL (0.0-0.8); MONO % 9.3 % (2.0-8.0); NEUTROPHILS # 4.4 10^3/uL (1.5-8.5); NEUTROPHILS % 65.6 % (36.0-66.0); PLATELET COUNT, AUTOMATED 147 10^3/uL (150-450); RED BLOOD COUNT 3.81 10^6/uL (4.30-6.10); WHITE BLOOD COUNT 6.7 10^3/uL (4.0-10.0)
[2022-03-18 23:15] LABS: BLOOD UREA NITROGEN 19 MG/DL (9-23); CALCIUM LEVEL 8.3 MG/DL (8.5-10.1); CARBON DIOXIDE LEVEL 26 MMOL/L (20-31); CHLORIDE LEVEL 104 MMOL/L (98-107); CREATININE FOR GFR 0.93 MG/DL (0.70-1.30); GLOMERULAR FILTRATION RATE > 60.0 (>56); GLUCOSE, FASTING 92 MG/DL (60-100); POTASSIUM SERUM 3.4 MMOL/L (3.5-5.1); SODIUM LEVEL 140 MMOL/L (136-145)
[2022-03-19] MEDS ORDERED: traZODone 50 MG TAB PO PRN (02:20)
[2022-03-19] MEDS ORDERED: ACETAMINOPHEN TAB 650MG DOSE (2X325MG) PO PRN (02:20)
[2022-03-19] MEDS ORDERED: MAALOX 30 ML SUSP *UDC PO PRN (02:20)
[2022-03-19] MEDS ORDERED: MOM 30ML SUSPENSION UDC PO PRN (02:20)
[2022-03-19] MEDS ORDERED: OLANZapine ORAL DISINTEGRATING TAB 5MG PO PRN (02:20)
[2022-03-19] MEDS: OLANZapine 5 MG TAB PO SCH ×2 (12:06→21:46)
[2022-03-19] MEDS ORDERED: POTASSIUM CHLORIDE 10MEQ SR TABLET PO ONE (13:35)
[2022-03-19 16:58] LABS: FERRITIN 135.6 NG/ML (10.5-307.3)
[2022-03-19 16:59] LABS: FOLATE 12.68 NG/ML (>5.4)
[2022-03-19 17:00] LABS: PERCENT SATURATION 15.9 % (19.7-50.0)
[2022-03-19 17:43] LABS: HEMOGLOBIN A1c 5.5 % (4.0-6.0)
[2022-03-19 18:17] VITALS: BP 135/87
[2022-03-20 06:23] VITALS: BP 134/88
[2022-03-20] MEDS: OLANZapine 5 MG TAB PO SCH ×2 (10:04→21:32)
[2022-03-20 13:06] LABS: ALBUMIN 3.6 G/DL (3.2-5.2); BILIRUBIN,DIRECT 0.1 MG/DL (<0.4); BILIRUBIN,TOTAL 0.2 MG/DL (0.3-1.2); TOTAL PROTEIN 6.3 G/DL (5.7-8.2)
[2022-03-20 19:17] VITALS: BP 158/85
[2022-03-21 06:48] LABS: CHOLESTEROL RISK RATIO 3.24 (<5); HDL CHOLESTEROL 44.1 MG/DL (>40); LDL CHOLESTEROL 78.3 MG/DL (<100)
[2022-03-21 06:50] VITALS: BP 158/85
[2022-03-21] MEDS: OLANZapine 5 MG TAB PO SCH (09:13)
[2022-03-21 09:14] VITALS: BP 124/86
[2022-03-21] MEDS: OLANZapine 10 MG TAB PO SCH (20:48)
[2022-03-22] MEDS: OLANZapine 5 MG TAB PO SCH (09:00)
[2022-03-22] MEDS: OLANZapine 10 MG TAB PO SCH (21:00)
[2022-03-23] MEDS: OLANZapine 5 MG TAB PO SCH (08:58)
[2022-03-23 18:24] VITALS: BP 143/90
[2022-03-23] MEDS: OLANZapine 10 MG TAB PO SCH (20:51)
[2022-03-24] MEDS: OLANZapine 5 MG TAB PO SCH (09:00)
[2022-03-24 16:43] VITALS: BP 137/81
[2022-03-24] MEDS: OLANZapine 10 MG TAB PO SCH (21:00)
[2022-03-25 05:48] VITALS: BP 158/100
[2022-03-25 06:17] VITALS: BP 148/98
[2022-03-25] MEDS: OLANZapine 5 MG TAB PO SCH (09:00)
[2022-03-25 17:20] VITALS: BP 182/105
[2022-03-25] MEDS: OLANZapine 10 MG TAB PO SCH (20:50)
[2022-03-26] MEDS: OLANZapine 5 MG TAB PO SCH (10:44)
[2022-03-26] MEDS: LACTIC ACID 12% LOTION 225 GM BTL TOP SCH (16:01)
[2022-03-26 17:03] VITALS: BP 165/97
[2022-03-26 17:05] VITALS: BP 160/102
[2022-03-26] MEDS: OLANZapine 10 MG TAB PO SCH (20:12)
[2022-03-27] MEDS: OLANZapine 5 MG TAB PO SCH (10:11)
[2022-03-27] MEDS: LACTIC ACID 12% LOTION 225 GM BTL TOP SCH (10:12)
[2022-03-27] MEDS ORDERED: MAGNESIUM SULFATE GRANULES (EPSOM SALT) 1LB TOP PRN (11:15)
[2022-03-27 16:26] VITALS: BP 139/85
[2022-03-27] MEDS: OLANZapine 10 MG TAB PO SCH (21:00)
[2022-03-28] MEDS: OLANZapine 5 MG TAB PO SCH (09:00)
[2022-03-28] MEDS: LACTIC ACID 12% LOTION 225 GM BTL TOP SCH (09:00)
[2022-03-28 18:57] VITALS: BP 158/82
[2022-03-28] MEDS: OLANZapine 10 MG TAB PO SCH (20:01)
[2022-03-29] MEDS: OLANZapine 5 MG TAB PO SCH (08:47)
[2022-03-29] MEDS: LACTIC ACID 12% LOTION 225 GM BTL TOP SCH (08:48)
== END 2022-03-29 14:11 | disposition home or self-care (01) | DRG 751 ==
LOC: M ED 13:32 → M ED INP 03-19 02:18 → M PSY 03-19 03:41
PROVIDERS: ADMIT Psychiatry & Neurology Psychiatry; ATTEND Psychiatry & Neurology Psychiatry
DX: F29 Unspecified psychosis not due to a substance or known physiological condition (principal); F20.9 Schizophrenia, unspecified; F17.200 Nicotine dependence, unspecified, uncomplicated; N28.1 Cyst of kidney, acquired; I10 Essential (primary) hypertension; E11.9 Type 2 diabetes mellitus without complications; D50.9 Iron deficiency anemia, unspecified; Z59.00 Homelessness unspecified; E66.9 Obesity, unspecified; T33.839A Superficial frostbite of unspecified toe(s), initial encounter

== ENCOUNTER 2022-06-11 23:25 | Emergency (ER) | payer MEDICAID ==
[~2022-06-11] VITALS: Ht 185.4 cm; Wt 104.0 kg
[2022-06-11 23:29] VITALS: BP 154/87
== END 2022-06-12 01:26 | disposition left against medical advice (07) ==
LOC: M ED 23:25
DX: Z53.21 Procedure and treatment not carried out due to patient leaving prior to being seen by health care provider (principal)

== ENCOUNTER 2023-07-31 12:30 | Inpatient (IN) | payer MEDICAID, OTHER ==
[~2023-07-31] VITALS: Ht 185.4 cm; Wt 107.3 kg
[~2023-07-31 12:30] MED LIST changes: +HYDR-161 PO; +METO1TAB87 PO; +OLAN1TAB16 PO; +OLAN1TAB20 PO; +TRAZ-252 PO
[2023-07-31 13:09] LABS: HEMATOCRIT 39.3 % (42.0-52.0); HEMOGLOBIN 13.6 g/dl (13.5-17.5); MEAN CORPUSCULAR HEMOGLOBIN 30.2 pg (27.0-33.0); MEAN CORPUSCULAR HGB CONC 34.6 g/dl (32.0-36.5); MEAN CORPUSCULAR VOLUME 87.3 fl (80.0-96.0); PLATELET COUNT, AUTOMATED 216 10^3/uL (150-450); WHITE BLOOD COUNT 7.8 10^3/uL (4.0-10.0)
[2023-07-31 13:41] LABS: ETHYL ALCOHOL (ETHANOL) < 0.003 % (0.000-0.010)
[2023-07-31 13:43] LABS: ALBUMIN 3.6 G/DL (3.2-5.2); ALKALINE PHOSPHATASE 71 U/L (46-116); ALT/SGPT 32 U/L (7.0-40); AST/SGOT 20 U/L (<34); BILIRUBIN,DIRECT 0.1 MG/DL (<0.4); BILIRUBIN,TOTAL 0.4 MG/DL (0.3-1.2); BLOOD UREA NITROGEN 15 MG/DL (9-23); CARBON DIOXIDE LEVEL 26 MMOL/L (20-31); CHLORIDE LEVEL 107 MMOL/L (98-107); CREATININE FOR GFR 1.03 MG/DL (0.70-1.30); GLOMERULAR FILTRATION RATE > 60.0 (>56); GLUCOSE, FASTING 172 MG/DL (60-100); POTASSIUM SERUM 3.1 MMOL/L (3.5-5.1); SALICYLATE LEVEL < 3.0 MG/DL (<30); SODIUM LEVEL 140 MMOL/L (136-145); TOTAL PROTEIN 6.4 G/DL (5.7-8.2)
[2023-07-31 13:45] LABS: THYROID STIMULATING HORMONE 0.629 uIU/ML (0.55-4.78)
[2023-07-31 13:52] LABS: AMPHETAMINES LEVEL URINE NEGATIVE (NEGATIVE); BARBITURATES URINE NEGATIVE (NEGATIVE); BENZODIAZEPINES URINE NEGATIVE (NEGATIVE); COCAINE METABOLITE URINE NEGATIVE (NEGATIVE); METHADONE URINE NEGATIVE (NEGATIVE); OPIATES URINE NEGATIVE (NEGATIVE)
[2023-07-31 13:53] LABS: CANNABINOIDS URINE NEGATIVE (NEGATIVE); PHENCYCLIDINE URINE NEGATIVE (NEGATIVE)
[2023-07-31] MEDS ORDERED: DOCU100C16 PO (15:04)
[2023-07-31] MEDS ORDERED: AMLO1TAB25 PO (15:04)
[2023-07-31] MEDS ORDERED: SENN-186 PO (15:04)
[2023-07-31] MEDS ORDERED: METO1TAB87 PO (15:04)
[2023-07-31] MEDS ORDERED: BENZ1TAB5 PO (15:04)
[2023-07-31] MEDS ORDERED: HALD100I2 IM (15:04)
[2023-07-31] MEDS ORDERED: HOME MED LIST COMPLETE! XX SCH (15:05)
[2023-07-31] MEDS: POTASSIUM CHLORIDE 10MEQ SR TABLET PO ONE (17:12)
[2023-07-31] MEDS ORDERED: IBUPROFEN 400MG TAB PO PRN (18:00)
[2023-07-31] MEDS ORDERED: diphenhydrAMINE 25MG CAP PO PRN (18:00)
[2023-07-31] MEDS ORDERED: NICOTINE 21MG/24HR 1 EA TRANSDERMAL TD PRN (18:00)
[2023-07-31] MEDS ORDERED: MOM 30ML SUSPENSION UDC PO PRN (18:00)
[2023-07-31] MEDS ORDERED: OLANZapine ORAL DISINTEGRATING TAB 5MG PO PRN (18:00)
[2023-07-31] MEDS ORDERED: MAALOX 30 ML SUSP *UDC PO PRN (18:00)
[2023-07-31] MEDS ORDERED: ACETAMINOPHEN TAB 650MG DOSE (2X325MG) PO PRN (18:00)
[2023-07-31] MEDS ORDERED: traZODone 50 MG TAB PO PRN (18:00)
[2023-07-31] MEDS: DOCUSATE SODIUM 100MG CAPSULE PO SCH (22:46)
[2023-07-31] MEDS: SENNA 8.6 MG TAB (SENOKOT) PO SCH (22:46)
[2023-07-31] MEDS: BENZTROPINE 1 MG TAB PO SCH (22:46)
[2023-07-31] MEDS: METOPROLOL TART 25 MG TABLET PO SCH (22:46)
[2023-08-01] MEDS: HALOPERIDOL DECANOATE 100 MG/ML 1ML VIAL IM ONE (09:34)
[2023-08-01] MEDS: POTASSIUM CHLORIDE 10MEQ SR TABLET PO ONE ×2 (12:16→14:05)
[2023-08-01 14:45] VITALS: BP 186/110; TEMP 97.8; O2SAT 97
[2023-08-01 15:27] VITALS: BP 168/98
[2023-08-01 17:55] LABS: BLOOD UREA NITROGEN 13 MG/DL (9-23); CALCIUM LEVEL 8.8 MG/DL (8.5-10.1); CARBON DIOXIDE LEVEL 28 MMOL/L (20-31); CHLORIDE LEVEL 104 MMOL/L (98-107); CREATININE FOR GFR 0.91 MG/DL (0.70-1.30); GLOMERULAR FILTRATION RATE > 60.0 (>56); GLUCOSE, FASTING 145 MG/DL (60-100); POTASSIUM SERUM 3.7 MMOL/L (3.5-5.1); SODIUM LEVEL 135 MMOL/L (136-145)
[2023-08-02 07:52] LABS: CHOLESTEROL RISK RATIO 3.4 (<5); HDL CHOLESTEROL 36.1 MG/DL (>40); LDL CHOLESTEROL 70.3 MG/DL (<100); NON-HDL-C 86.9 MG/DL
[2023-08-02] MEDS: HALOPERIDOL DECANOATE 100 MG/ML 1ML VIAL IM ONE (08:18)
[2023-08-02] MEDS ORDERED: HALOPERIDOL DECANOATE 100 MG/ML 1ML VIAL IM PRN (08:25)
[2023-08-02 08:26] VITALS: BP 164/96
[2023-08-02] MEDS: [UNRECOGNIZED DRUG - REMARK] XX SCH (09:00)
[2023-08-03 08:37] VITALS: BP 140/96
[2023-08-03] MEDS: **hydrALAZINE HCL** 25 MG TAB PO SCH (09:00)
[2023-08-03] MEDS ORDERED: PILL CUTTER 1 EACH XX PRN (11:50)
[2023-08-03 15:10] VITALS: BP 160/98; TEMP 98.3; O2SAT 97
[2023-08-04 06:19] VITALS: BP 156/92; TEMP 98; O2SAT 96
[2023-08-04 17:41] VITALS: BP 158/110; TEMP 98.1; O2SAT 97
[2023-08-05 06:00] VITALS: BP 162/108; TEMP 98.2; O2SAT 98
[2023-08-05 18:42] VITALS: BP 160/88; TEMP 97.1
[2023-08-06 06:38] VITALS: BP 160/92; TEMP 97.9; O2SAT 97
[2023-08-07 06:42] VITALS: BP 160/110; TEMP 97.6; O2SAT 98
[2023-08-08 15:45] VITALS: BP 168/97; TEMP 98.6; O2SAT 96
[2023-08-09 16:08] VITALS: BP 160/96; TEMP 98.1; O2SAT 95
[2023-08-10 16:45] VITALS: BP 160/96; TEMP 98.2; O2SAT 97
[2023-08-11] MEDS ORDERED: DEXTROSE 50% 50ML SYRINGE IV PRN (10:45)
[2023-08-11] MEDS ORDERED: GLUCAGON INJ 1MG VIAL SC PRN (10:45)
[2023-08-11] MEDS ORDERED: GLUCOSE 4 GM CHEW PO PRN (10:45)
[2023-08-11] MEDS: INSULIN LISPRO (NovoLOG) PER UNIT SC SCH (12:00)
[2023-08-11] MEDS ORDERED: INSULIN LISPRO (NovoLOG) PER UNIT SC SCH (21:00)
== END 2023-08-11 15:41 | disposition home or self-care (01) | DRG 750 ==
LOC: M ED 12:30 → M ED INP 17:56 → M PSY 22:32
PROVIDERS: ADMIT Student in an Organized Health Care Education/Training Program; ATTEND Student in an Organized Health Care Education/Training Program
DX: F20.9 Schizophrenia, unspecified (principal); E11.9 Type 2 diabetes mellitus without complications; I10 Essential (primary) hypertension; Z91.119 Patient's noncompliance with dietary regimen due to unspecified reason; Z91.148 Patient's other noncompliance with medication regimen for other reason; G24.01 Drug induced subacute dyskinesia; Z79.899 Other long term (current) drug therapy; E66.9 Obesity, unspecified; E78.5 Hyperlipidemia, unspecified; E87.6 Hypokalemia

== ENCOUNTER 2023-08-12 11:34 | Inpatient (IN) | payer MEDICAID, OTHER ==
[~2023-08-12] VITALS: Ht 185.4 cm; Wt 107.3 kg
[~2023-08-12 11:34] MED LIST changes: +DOCU100C16 PO; +HALD100I2 IM; +SENN-186 PO
[2023-08-12 12:31] LABS: HEMATOCRIT 41.1 % (42.0-52.0); HEMOGLOBIN 14.4 g/dl (13.5-17.5); MEAN CORPUSCULAR HEMOGLOBIN 29.9 pg (27.0-33.0); MEAN CORPUSCULAR VOLUME 85.3 fl (80.0-96.0); PLATELET COUNT, AUTOMATED 212 10^3/uL (150-450); RED BLOOD COUNT 4.82 10^6/uL (4.30-6.10); WHITE BLOOD COUNT 10.2 10^3/uL (4.0-10.0)
[2023-08-12] MEDS ORDERED: HOME MED LIST COMPLETE! XX SCH (12:35)
[2023-08-12 12:59] LABS: AMPHETAMINES LEVEL URINE NEGATIVE (NEGATIVE)
[2023-08-12 13:00] LABS: BARBITURATES URINE NEGATIVE (NEGATIVE); BENZODIAZEPINES URINE NEGATIVE (NEGATIVE); CANNABINOIDS URINE NEGATIVE (NEGATIVE); COCAINE METABOLITE URINE NEGATIVE (NEGATIVE); METHADONE URINE NEGATIVE (NEGATIVE); OPIATES URINE NEGATIVE (NEGATIVE); PHENCYCLIDINE URINE NEGATIVE (NEGATIVE)
[2023-08-12 13:00] LABS: ETHYL ALCOHOL (ETHANOL) < 0.003 % (0.000-0.010)
[2023-08-12 13:02] LABS: ALBUMIN 3.8 G/DL (3.2-5.2); ALKALINE PHOSPHATASE 74 U/L (46-116); ALT/SGPT 30 U/L (7.0-40); AST/SGOT 18 U/L (<34); BILIRUBIN,DIRECT 0.1 MG/DL (<0.4); BILIRUBIN,TOTAL 0.5 MG/DL (0.3-1.2); BLOOD UREA NITROGEN 14 MG/DL (9-23); CARBON DIOXIDE LEVEL 25 MMOL/L (20-31); CHLORIDE LEVEL 105 MMOL/L (98-107); CREATININE FOR GFR 0.87 MG/DL (0.70-1.30); GLOMERULAR FILTRATION RATE > 60.0 (>56); GLUCOSE, FASTING 172 MG/DL (60-100); POTASSIUM SERUM 3.2 MMOL/L (3.5-5.1); SALICYLATE LEVEL < 3.0 MG/DL (<30); SODIUM LEVEL 137 MMOL/L (136-145); TOTAL PROTEIN 6.6 G/DL (5.7-8.2)
[2023-08-12 13:05] LABS: THYROID STIMULATING HORMONE 2.783 uIU/ML (0.55-4.78)
[2023-08-12] MEDS: METOPROLOL TART 25 MG TABLET PO ONE (13:27)
[2023-08-12] MEDS: POTASSIUM CHLORIDE 10MEQ SR TABLET PO ONE (15:22)
[2023-08-12] MEDS: HALOPERIDOL LACTATE 5MG/ML VIAL IM ONE (17:09)
[2023-08-12] MEDS: LORazepam 2 MG/ML 1ML VIAL IM ONE (17:10)
[2023-08-12] MEDS: diphenhydrAMINE 50MG/ML VIAL IM ONE (17:10)
[2023-08-12] MEDS: NITROGLYCERIN 2% OINT 1 GM *U/D* PKT TOP ONE (17:10)
[2023-08-13 14:00] VITALS: BP 148/85
[2023-08-13] MEDS ORDERED: HALOPERIDOL LACTATE 5MG/ML VIAL IM PRN (17:30)
[2023-08-13] MEDS ORDERED: LORazepam 2 MG/ML 1ML VIAL IM PRN (17:30)
[2023-08-13] MEDS: HALOPERIDOL LACTATE 5MG/ML VIAL IM SCH (21:00)
[2023-08-14] VITALS (9 sets, daily range): BP systolic 158–177; BP diastolic 94–106; O2SAT 96–98
[2023-08-14] MEDS: [UNRECOGNIZED DRUG - REMARK] XX SCH (09:00)
[2023-08-14] MEDS: DOCUSATE SODIUM 100MG CAPSULE PO SCH (09:00)
[2023-08-14] MEDS: SENNA 8.6 MG TAB (SENOKOT) PO SCH (09:00)
[2023-08-14] MEDS: NICOTINE 14 MG/24 HR TRANSDERMAL TD SCH (09:00)
[2023-08-14] MEDS: METOPROLOL TART 25 MG TABLET PO SCH (09:00)
[2023-08-14] MEDS ORDERED: LORazepam 1 MG TAB PO PRN (09:45)
[2023-08-14] MEDS ORDERED: IBUPROFEN 400MG TAB PO PRN (09:45)
[2023-08-14] MEDS ORDERED: diphenhydrAMINE 25MG CAP PO PRN (09:45)
[2023-08-14] MEDS ORDERED: traZODone 50 MG TAB PO PRN (09:45)
[2023-08-14] MEDS ORDERED: ACETAMINOPHEN TAB 650MG DOSE (2X325MG) PO PRN (09:45)
[2023-08-14] MEDS ORDERED: MAALOX 30 ML SUSP *UDC PO PRN (09:45)
[2023-08-14] MEDS ORDERED: MOM 30ML SUSPENSION UDC PO PRN (09:45)
[2023-08-14] MEDS: diphenhydrAMINE 50MG/ML VIAL IM STA ×2 (11:23→12:02)
[2023-08-14] MEDS: LORazepam 2 MG/ML 1ML VIAL IM STA ×2 (11:23→12:01)
[2023-08-14] MEDS: HALOPERIDOL LACTATE 5MG/ML VIAL IM STA ×2 (11:23→12:02)
[2023-08-14] MEDS ORDERED: HALOPERIDOL DECANOATE 100 MG/ML 1ML VIAL IM PRN (11:30)
[2023-08-14] MEDS: BENZTROPINE 1 MG TAB PO SCH (21:00)
[2023-08-15 15:44] VITALS: BP 160/98; TEMP 98.3; O2SAT 94
[2023-08-16 06:17] VITALS: BP 147/91; TEMP 97.8; O2SAT 98
[2023-08-16 15:39] VITALS: BP 172/90; TEMP 98; O2SAT 100
[2023-08-17 05:58] VITALS: BP 163/88; TEMP 97.3; O2SAT 97
[2023-08-17 15:47] VITALS: BP 160/88; TEMP 98.1; O2SAT 95
[2023-08-18 18:44] VITALS: BP 166/94; TEMP 98
[2023-08-18 20:30] VITALS: BP 168/100; TEMP 98.1; O2SAT 97
[2023-08-19 17:50] VITALS: BP 182/100; TEMP 97.5
[2023-08-20 18:14] VITALS: BP 164/92; TEMP 98
[2023-08-21 06:17] VITALS: BP 190/124; TEMP 97.5; O2SAT 98
[2023-08-21 10:48] VITALS: BP 170/100; TEMP 97; O2SAT 97
[2023-08-21 16:26] VITALS: BP 172/102; TEMP 97.9; O2SAT 95
[2023-08-22 06:25] VITALS: BP 170/104; TEMP 98.3; O2SAT 97
[2023-08-22 10:38] VITALS: BP 190/104
[2023-08-22 16:11] VITALS: BP 140/78; TEMP 97; O2SAT 95
[2023-08-23 16:41] VITALS: BP 168/100; TEMP 97.8; O2SAT 97
[2023-08-24 16:04] VITALS: BP 168/100; TEMP 97.7; O2SAT 99
[2023-08-25 06:32] VITALS: BP 151/86; TEMP 97.1; O2SAT 97
[2023-08-25] MEDS ORDERED: NICO14PA TD (15:58)
[2023-08-25] MEDS ORDERED: HALO5TAB33 PO (15:58)
[2023-08-25] MEDS ORDERED: CLON0.3D8 TOP (15:58)
== END 2023-08-25 16:55 | disposition home or self-care (01) | DRG 750 ==
LOC: M ED 11:34 → M ED INP 08-14 09:42 → M PSY 08-14 12:02
PROVIDERS: ADMIT Student in an Organized Health Care Education/Training Program; ATTEND Student in an Organized Health Care Education/Training Program
DX: F20.9 Schizophrenia, unspecified (principal); Z78.1 Physical restraint status; I10 Essential (primary) hypertension; Z91.148 Patient's other noncompliance with medication regimen for other reason; Z91.119 Patient's noncompliance with dietary regimen due to unspecified reason; E11.9 Type 2 diabetes mellitus without complications; Z79.899 Other long term (current) drug therapy; E78.5 Hyperlipidemia, unspecified

== ENCOUNTER 2024-02-27 10:41 | Inpatient (IN) | payer MEDICAID ==
[~2024-02-27] VITALS: Ht 185.4 cm; Wt 104.0 kg
[~2024-02-27 10:41] MED LIST changes: +CLON0.3D8 TOP; +HALO5TAB33 PO; +NICO14PA TD
[2024-02-27] MEDS: HALOPERIDOL LACTATE 5MG/ML VIAL IM ONE (11:26)
[2024-02-27] MEDS: diphenhydrAMINE 50MG/ML VIAL IM ONE (11:27)
[2024-02-27] MEDS: LORazepam 2 MG/ML 1ML VIAL IM ONE (11:27)
[2024-02-27 11:41] LABS: HEMATOCRIT 44.3 % (42.0-52.0); HEMOGLOBIN 15.2 g/dl (13.5-17.5); MEAN CORPUSCULAR HEMOGLOBIN 30.7 pg (27.0-33.0); MEAN CORPUSCULAR HGB CONC 34.3 g/dl (32.0-36.5); MEAN CORPUSCULAR VOLUME 89.5 fl (80.0-96.0); PLATELET COUNT, AUTOMATED 177 10^3/uL (150-450); RED BLOOD COUNT 4.95 10^6/uL (4.30-6.10); WHITE BLOOD COUNT 10.2 10^3/uL (4.0-10.0)
[2024-02-27 12:08] LABS: ETHYL ALCOHOL (ETHANOL) < 0.003 % (0.000-0.010)
[2024-02-27 12:09] LABS: ALKALINE PHOSPHATASE 79 U/L (40-129); ALT/SGPT 36 U/L (7.0-40); AST/SGOT 34 U/L (<34); BILIRUBIN,DIRECT 0.3 MG/DL (<0.4); BILIRUBIN,TOTAL 0.7 MG/DL (0.3-1.2); BLOOD UREA NITROGEN 37 MG/DL (9-23); CARBON DIOXIDE LEVEL 26 MMOL/L (20-31); CHLORIDE LEVEL 109 MMOL/L (98-107); CREATININE FOR GFR 1.98 MG/DL (0.70-1.30); GLOMERULAR FILTRATION RATE 37.1 (>56); GLUCOSE, FASTING 145 MG/DL (60-100); POTASSIUM SERUM 3.3 MMOL/L (3.5-5.1); SALICYLATE LEVEL < 3.0 MG/DL (<30); SODIUM LEVEL 146 MMOL/L (136-145); TOTAL PROTEIN 7.6 G/DL (5.7-8.2)
[2024-02-27 12:11] LABS: THYROID STIMULATING HORMONE 0.399 uIU/ML (0.55-4.78)
[2024-02-27] MEDS: NS (Normal Saline) 0.9% 1,000 ML IV ONE (13:20)
[2024-02-27 13:53] LABS: CPK CREATINE PHOSPHOKINASE 289 U/L (46-171)
[2024-02-27 15:18] LABS: CALCIUM LEVEL 9.1 MG/DL (8.5-10.1); CREATININE FOR GFR 1.56 MG/DL (0.70-1.30); GLOMERULAR FILTRATION RATE 48.9 (>56); MAGNESIUM LEVEL 1.6 MG/DL (1.8-2.4); POTASSIUM SERUM 3.3 MMOL/L (3.5-5.1)
[2024-02-27] MEDS: POTASSIUM CHLORIDE 10MEQ SR TABLET PO ONE (15:36)
[2024-02-27] MEDS: MAG SULF 1GM/100ML (MAG RUN) 1 GM in IV 1 EA IV ONE ×2 (15:41→16:45)
[2024-02-27] MEDS ORDERED: CLON1PAT TD (15:43)
[2024-02-27] MEDS ORDERED: HOME MED LIST COMPLETE! XX SCH (15:45)
[2024-02-27] MEDS: LR 1,000 ML IV ONE ×2 (16:00→16:45)
[2024-02-27] MEDS ORDERED: DEXTROSE 50% 50ML SYRINGE IV PRN (16:05)
[2024-02-27] MEDS ORDERED: GLUCAGON INJ 1MG VIAL SC PRN (16:05)
[2024-02-27] MEDS ORDERED: GLUCOSE 4 GM CHEW PO PRN (16:05)
[2024-02-27] MEDS: METOPROLOL TART 25 MG TABLET PO ONE (17:26)
[2024-02-27] MEDS: INSULIN LISPRO (NovoLOG) PER UNIT SC SCH (17:30)
[2024-02-27] MEDS: **hydrALAZINE HCL** 25 MG TAB PO PRN (18:25)
[2024-02-27 19:10] LABS: CALCIUM LEVEL 8.2 MG/DL (8.5-10.1); CREATININE FOR GFR 1.39 MG/DL (0.70-1.30); GLOMERULAR FILTRATION RATE 55.9 (>56); MAGNESIUM LEVEL 2.3 MG/DL (1.8-2.4)
[2024-02-27 19:19] LABS: HEMOGLOBIN A1c 6.1 % (4.0-6.0)
[2024-02-27] MEDS: POTASSIUM CHLORIDE 10MEQ SR TABLET PO SCH (20:48)
[2024-02-27] MEDS ORDERED: INSULIN LISPRO (NovoLOG) PER UNIT SC SCH (21:00)
[2024-02-28 00:58] LABS: AMPHETAMINES LEVEL URINE NEGATIVE (NEGATIVE); BARBITURATES URINE NEGATIVE (NEGATIVE); BENZODIAZEPINES URINE NEGATIVE (NEGATIVE); CANNABINOIDS URINE NEGATIVE (NEGATIVE); COCAINE METABOLITE URINE NEGATIVE (NEGATIVE); METHADONE URINE NEGATIVE (NEGATIVE); OPIATES URINE NEGATIVE (NEGATIVE); PHENCYCLIDINE URINE NEGATIVE (NEGATIVE)
[2024-02-28 02:41] LABS: BLOOD UREA NITROGEN 25 MG/DL (9-23); CALCIUM LEVEL 8.3 MG/DL (8.5-10.1); CARBON DIOXIDE LEVEL 27 MMOL/L (20-31); CHLORIDE LEVEL 108 MMOL/L (98-107); CREATININE FOR GFR 1.18 MG/DL (0.70-1.30); GLOMERULAR FILTRATION RATE > 60.0 (>56); GLUCOSE, FASTING 128 MG/DL (60-100); POTASSIUM SERUM 3.3 MMOL/L (3.5-5.1); SODIUM LEVEL 143 MMOL/L (136-145)
[2024-02-28] MEDS ORDERED: NICOTINE 21MG/24HR 1 EA TRANSDERMAL TD PRN (09:00)
[2024-02-28] MEDS: POTASSIUM CHLORIDE 10MEQ SR TABLET PO ONE (09:08)
[2024-02-28] MEDS: METOPROLOL TART 25 MG TABLET PO SCH ×2 (09:08→21:00)
[2024-02-28] MEDS ORDERED: LORazepam 1 MG TAB PO PRN (14:15)
[2024-02-28] MEDS ORDERED: MOM 30ML SUSPENSION UDC PO PRN (14:15)
[2024-02-28] MEDS ORDERED: traZODone 50 MG TAB PO PRN (14:15)
[2024-02-28] MEDS ORDERED: OLANZapine ORAL DISINTEGRATING TAB 5MG PO PRN (14:15)
[2024-02-28] MEDS ORDERED: ACETAMINOPHEN 325 MG TAB PO PRN (14:15)
[2024-02-28] MEDS ORDERED: diphenhydrAMINE 25MG CAP PO PRN (14:15)
[2024-02-28] MEDS ORDERED: MAALOX 30 ML SUSP *UDC PO PRN (14:15)
[2024-02-28] MEDS ORDERED: IBUPROFEN 400MG TAB PO PRN (14:15)
[2024-02-28 15:44] VITALS: BP 136/80; TEMP 98.5; O2SAT 97
[2024-02-28] MEDS: DOCUSATE SODIUM 100MG CAPSULE PO SCH (21:00)
[2024-02-28] MEDS: BENZTROPINE 1 MG TAB PO SCH (21:00)
[2024-02-28] MEDS: SENNA 8.6 MG TAB (SENOKOT) PO SCH (21:00)
[2024-02-29 08:25] LABS: BASO # 0.1 10^3/uL (0.0-0.2); BASO % 0.7 % (0.0-1.0); EOS # 0.2 10^3/uL (0.0-0.5); EOS % 1.7 % (0.0-3.0); HEMATOCRIT 40.5 % (42.0-52.0); HEMOGLOBIN 14.3 g/dl (13.5-17.5); LYMPH # 1.5 10^3/uL (1.5-5.0); LYMPH % 17.1 % (24.0-44.0); MEAN CORPUSCULAR HEMOGLOBIN 30.5 pg (27.0-33.0); MEAN CORPUSCULAR HGB CONC 35.3 g/dl (32.0-36.5); MEAN CORPUSCULAR VOLUME 86.4 fl (80.0-96.0); MONO # 0.6 10^3/uL (0.0-0.8); MONO % 6.9 % (2.0-8.0); NEUTROPHILS # 6.4 10^3/uL (1.5-8.5); NEUTROPHILS % 73.3 % (36.0-66.0); PLATELET COUNT, AUTOMATED 154 10^3/uL (150-450); RED BLOOD COUNT 4.69 10^6/uL (4.30-6.10); WHITE BLOOD COUNT 8.7 10^3/uL (4.0-10.0)
[2024-02-29 08:49] LABS: BLOOD UREA NITROGEN 19 MG/DL (9-23); CALCIUM LEVEL 8.3 MG/DL (8.5-10.1); CARBON DIOXIDE LEVEL 23 MMOL/L (20-31); CHLORIDE LEVEL 104 MMOL/L (98-107); CREATININE FOR GFR 1.22 MG/DL (0.70-1.30); GLOMERULAR FILTRATION RATE > 60.0 (>56); GLUCOSE, FASTING 270 MG/DL (60-100); MAGNESIUM LEVEL 1.3 MG/DL (1.8-2.4); POTASSIUM SERUM 3.1 MMOL/L (3.5-5.1); SODIUM LEVEL 139 MMOL/L (136-145)
[2024-02-29] MEDS: **hydrALAZINE HCL** 25 MG TAB PO SCH (09:54)
[2024-02-29] MEDS: POTASSIUM CHLORIDE 10MEQ SR TABLET PO ONE ×2 (11:28→17:15)
[2024-02-29] MEDS: MAGNESIUM GLUCONATE 500 MG TAB PO ONE (12:00)
[2024-02-29] MEDS: MAGNESIUM GLUCONATE 500 MG TAB PO SCH (17:51)
[2024-03-01 10:41] LABS: BLOOD UREA NITROGEN 17 MG/DL (9-23); CALCIUM LEVEL 8.8 MG/DL (8.5-10.1); CARBON DIOXIDE LEVEL 25 MMOL/L (20-31); CHLORIDE LEVEL 106 MMOL/L (98-107); CREATININE FOR GFR 1.15 MG/DL (0.70-1.30); GLOMERULAR FILTRATION RATE > 60.0 (>56); GLUCOSE, FASTING 163 MG/DL (60-100); MAGNESIUM LEVEL 1.5 MG/DL (1.8-2.4); POTASSIUM SERUM 3.7 MMOL/L (3.5-5.1); SODIUM LEVEL 141 MMOL/L (136-145)
[2024-03-02 15:33] VITALS: BP 163/98; TEMP 97.8; O2SAT 97
[2024-03-07 14:00] VITALS: BP 163/98
[2024-03-08 15:40] VITALS: BP 153/91; TEMP 98.1; O2SAT 96
[2024-03-13 15:14] VITALS: BP 164/104; TEMP 97.9; O2SAT 98
[2024-03-29 22:00] VITALS: BP 164/104; TEMP 97.9; O2SAT 98
[2024-04-05] MEDS: HALOPERIDOL LACTATE 5MG/ML VIAL IM ONE ×2 (15:39→20:36)
[2024-04-06] MEDS: HALOPERIDOL LACTATE 5MG/ML VIAL IM ONE (16:51)
[2024-04-06] MEDS ORDERED: HALOPERIDOL LACTATE 5MG/ML VIAL IM SCH (21:00)
[2024-04-06] MEDS ORDERED: HALOPERIDOL LACTATE 5MG/ML VIAL IM ONE (21:00)
[2024-04-07] MEDS ORDERED: HALOPERIDOL LACTATE 5MG/ML VIAL IM SCH (09:00)
[2024-04-07] MEDS: HALOPERIDOL LACTATE 5MG/ML VIAL IM PRN (10:13)
[2024-04-08] MEDS ORDERED: PILL CUTTER 1 EACH XX PRN (15:45)
[2024-04-09] MEDS: HALOPERIDOL LACTATE 5MG/ML VIAL IM SCH (10:44)
[2024-04-11 15:10] VITALS: BP 160/94; TEMP 97.9; O2SAT 95
[2024-04-12] MEDS: HALOPERIDOL DECANOATE 100 MG/ML 1ML VIAL IM ONE (08:07)
[2024-04-12 15:46] VITALS: BP 180/112; TEMP 97.2; O2SAT 97
[2024-04-23] MEDS ORDERED: HALD100I2 IM (11:33)
[2024-04-23] MEDS ORDERED: METO1TAB87 PO (11:33)
[2024-04-23] MEDS ORDERED: BENZ1TAB5 PO (11:33)
[2024-04-23] MEDS ORDERED: HALO5TAB33 PO (11:33)
[2024-04-23] MEDS ORDERED: AMLO1TAB25 PO (11:33)
[2024-04-23] MEDS ORDERED: LISI10TA22 PO (11:33)
[2024-04-23] MEDS ORDERED: CLON1PAT TD (11:33)
[2024-04-23] MEDS ORDERED: DOCU100C16 PO (11:33)
== END 2024-04-23 12:40 | disposition home or self-care (01) | DRG 750 ==
LOC: M ED 10:41 → M ED INP 02-28 14:13 → M PSY 02-28 15:08
PROVIDERS: ADMIT Psychiatry & Neurology Psychiatry; ATTEND Psychiatry & Neurology Psychiatry
DX: F20.0 Paranoid schizophrenia (principal); N17.9 Acute kidney failure, unspecified; E11.9 Type 2 diabetes mellitus without complications; Z91.119 Patient's noncompliance with dietary regimen due to unspecified reason; Z59.00 Homelessness unspecified; Z91.148 Patient's other noncompliance with medication regimen for other reason; I10 Essential (primary) hypertension; E87.6 Hypokalemia; Z79.899 Other long term (current) drug therapy; E78.5 Hyperlipidemia, unspecified; Z56.0 Unemployment, unspecified

== ENCOUNTER 2024-05-10 10:15 | Inpatient (IN) | payer MEDICAID, OTHER ==
[~2024-05-10] VITALS: Ht 185.4 cm; Wt 115.0 kg
[~2024-05-10 10:15] MED LIST changes: +CLON1PAT TD
[2024-05-10 15:12] LABS: HEMATOCRIT 41.9 % (42.0-52.0); HEMOGLOBIN 14.6 g/dl (13.5-17.5); MEAN CORPUSCULAR HEMOGLOBIN 30.5 pg (27.0-33.0); MEAN CORPUSCULAR HGB CONC 34.8 g/dl (32.0-36.5); MEAN CORPUSCULAR VOLUME 87.7 fl (80.0-96.0); PLATELET COUNT, AUTOMATED 203 10^3/uL (150-450); RED BLOOD COUNT 4.78 10^6/uL (4.30-6.10); WHITE BLOOD COUNT 9.4 10^3/uL (4.0-10.0)
[2024-05-10 15:37] LABS: AMPHETAMINES LEVEL URINE NEGATIVE (NEGATIVE); BARBITURATES URINE NEGATIVE (NEGATIVE); BENZODIAZEPINES URINE NEGATIVE (NEGATIVE); COCAINE METABOLITE URINE NEGATIVE (NEGATIVE); METHADONE URINE NEGATIVE (NEGATIVE); OPIATES URINE NEGATIVE (NEGATIVE); PHENCYCLIDINE URINE NEGATIVE (NEGATIVE)
[2024-05-10 15:39] LABS: CANNABINOIDS URINE POSITIVE (NEGATIVE)
[2024-05-10 15:41] LABS: ETHYL ALCOHOL (ETHANOL) < 0.003 % (0.000-0.010)
[2024-05-10 15:43] LABS: ALBUMIN 3.5 G/DL (3.2-5.2); ALKALINE PHOSPHATASE 61 U/L (40-129); ALT/SGPT 22 U/L (7.0-40); AST/SGOT 24 U/L (<34); BILIRUBIN,DIRECT 0.2 MG/DL (<0.4); BILIRUBIN,TOTAL 0.5 MG/DL (0.3-1.2); BLOOD UREA NITROGEN 12 MG/DL (9-23); CALCIUM LEVEL 8.5 MG/DL (8.5-10.1); CARBON DIOXIDE LEVEL 28 MMOL/L (20-31); CHLORIDE LEVEL 104 MMOL/L (98-107); CREATININE FOR GFR 1.17 MG/DL (0.70-1.30); GLOMERULAR FILTRATION RATE > 60.0 (>56); GLUCOSE, FASTING 108 MG/DL (60-100); POTASSIUM SERUM 3.9 MMOL/L (3.5-5.1); SALICYLATE LEVEL < 3.0 MG/DL (<30); SODIUM LEVEL 140 MMOL/L (136-145); THYROID STIMULATING HORMONE 0.588 uIU/ML (0.55-4.78); TOTAL PROTEIN 6.6 G/DL (5.7-8.2)
[2024-05-10] MEDS ORDERED: HALO5TAB33 PO (16:28)
[2024-05-10] MEDS ORDERED: CLON0.3D8 TOP (16:35)
[2024-05-10] MEDS ORDERED: DOCU100C17 PO (16:35)
[2024-05-10] MEDS ORDERED: NICO14DI6 TD (16:36)
[2024-05-10] MEDS ORDERED: SENN8.6T28 PO (16:36)
[2024-05-10] MEDS ORDERED: MED REC COMMENT (16:39)
[2024-05-10] MEDS ORDERED: HOME MED LIST COMPLETE! XX SCH (16:40)
[2024-05-11] MEDS: DOCUSATE SODIUM 100MG CAPSULE PO SCH (09:00)
[2024-05-11] MEDS: METOPROLOL TART 25 MG TABLET PO SCH (09:00)
[2024-05-11] MEDS: NICOTINE 14 MG/24 HR TRANSDERMAL TD SCH (09:00)
[2024-05-11] MEDS: BENZTROPINE 1 MG TAB PO SCH (09:00)
[2024-05-11] MEDS ORDERED: MAALOX 30 ML SUSP *UDC PO PRN (09:35)
[2024-05-11] MEDS ORDERED: ACETAMINOPHEN 325 MG TAB PO PRN (09:35)
[2024-05-11] MEDS ORDERED: LORazepam 1 MG TAB PO PRN (09:35)
[2024-05-11] MEDS ORDERED: OLANZapine 5 MG TAB PO PRN (09:35)
[2024-05-11] MEDS ORDERED: traZODone 50 MG TAB PO PRN (09:35)
[2024-05-11] MEDS ORDERED: MOM 30ML SUSPENSION UDC PO PRN (09:35)
[2024-05-11] MEDS ORDERED: diphenhydrAMINE 25MG CAP PO PRN (09:35)
[2024-05-11] MEDS: HALOPERIDOL DECANOATE 100 MG/ML 1ML VIAL IM ONE (13:42)
[2024-05-13 16:24] VITALS: BP 168/102; TEMP 97.7; O2SAT 98
[2024-05-13 18:19] VITALS: BP 158/98; TEMP 97.2; O2SAT 97
[2024-05-15 15:58] VITALS: BP 150/94; TEMP 97.7; O2SAT 96
[2024-05-24] MEDS ORDERED: HALO5TAB33 PO (13:53)
[2024-05-24] MEDS ORDERED: DOCU100C17 PO (13:53)
[2024-05-24] MEDS ORDERED: SENN8.6T28 PO (13:53)
[2024-05-24] MEDS ORDERED: NICO14DI6 TD (13:53)
== END 2024-05-24 16:20 | disposition home or self-care (01) | DRG 750 ==
LOC: M ED 10:15 → M ED INP 05-11 09:33 → M PSY 05-11 10:23
PROVIDERS: ADMIT Internal Medicine; ATTEND Internal Medicine
DX: F20.9 Schizophrenia, unspecified (principal); F10.10 Alcohol abuse, uncomplicated; F17.200 Nicotine dependence, unspecified, uncomplicated; Z91.148 Patient's other noncompliance with medication regimen for other reason; I10 Essential (primary) hypertension; E66.9 Obesity, unspecified; E11.9 Type 2 diabetes mellitus without complications; Z79.899 Other long term (current) drug therapy; F12.90 Cannabis use, unspecified, uncomplicated